=== PATIENT | female | born 1935 | race Caucasian/White ===

== ENCOUNTER 2019-12-27 05:07 | Emergency (ER) | payer MEDICARE, SELFPAY ==
--- NOTE | ~2019-12-27 | XR_ITS ---
EXAMINATION: XR chest 2V DATE: 12/27/2019 06:13 INDICATION: Chest tightness TECHNIQUE: AP and lateral views of the chest are obtained. COMPARISON: 02/09/2018 FINDINGS: The lungs are free of acute opacities. There is no pleural effusion or pneumothorax. The ca rdiomediastinal silhouette is normal. There is moderate thoracic spondylosis. There is chronic mild e levation of the anterior leaflet of the right hemidiaphragm. There are surgical changes of left maste ctomy and left axillary lymph node dissection. Multiple healed left-sided rib fractures are noted. IMPRESSION: 1. No acute cardiopulmonary abnormality. Reviewed, dictated and finalized at location A.
[2019-12-27 05:06] VITALS: BP 175/77; PULSE 78; RESP 21; TEMP 36.8; O2SAT 95
--- NOTE | 2019-12-27 05:23 | ECG_ITS ---
Measurements Intervals [place] Rate: 78 P: 107 OH: 150 QRS: 40 QRSD: 105 T: 0 QT: 361 QTc: 413 Interpretive Statements SINUS RHYTHM BORDERLINE ST-T WAVE ABNORMALITY- INFERIOR LEADS BASELINE ARTIFACT- I, II, III, AVR, AVL, AVF BORDERLINE ECG Electronically Signed On 12-27-2019 6:57:59 CDT by Cipriano Chowdhury D.O.
--- NOTE | 2019-12-27 05:24 | ED.CHESTPAIN ---
HPI - Chest Pain General Chief Complaint: Chest Pain <Kimberly Ann MD - Last Filed: 12/27/19 20:51> Stated Complaint: chest tightness <Kimberly Ann MD - Last Filed: 12/27/19 20:51> Time Seen by Provider: 12/27/19 10:37 <Kimberly Ann MD - Last Filed: 12/27/19 20:51> Source: patient <Kimberly Ann MD - Last Filed: 12/27/19 20:51> Mode of arrival: EMS <Kimberly Ann MD - Last Filed: 12/27/19 20:51> Limitations: no limitations <Kimberly Ann MD - Last Filed: 12/27/19 20:51> History of Present Illness HPI narrative: This patient is an 84 year old female who presents for evaluation of an 84 year old female who presents for evaluation of chest tightness. She states she woke up at 4 am with upper chest tightness. She states she got up to check her vitals and she noticed her blood pressure and heart rate were elevated. This tightness lasted 15 minutes and she states it has now resolved. She denies nausea, vomiting, dizziness , sob or diaphoresis. She reports distant history of afib and she is on propanolol. She reports she was told to take aspirin for her paroxysmal afib. On EMS EKG patient was found to be in afib with RVR. PAtient has no complaints now and she is in sinus rhythm <Kimberly Ann MD - Last Filed: 12/27/19 20:51> Onset (ago): minute(s) <Kimberly Ann MD - Last Filed: 12/27/19 20:51> Timing of current episode: now resolved <Kimberly Ann MD - Last Filed: 12/27/19 20:51> Prior episodes: Yes <Kimberly Ann MD - Last Filed: 12/27/19 20:51> Onset: during rest <Kimberly Ann MD - Last Filed: 12/27/19 20:51> Pain radiation: none <Kimberly Ann MD - Last Filed: 12/27/19 20:51> Quality: tightness <Kimberly Ann MD - Last Filed: 12/27/19 20:51> Relieving factors: nothing <Kimberly Ann MD - Last Filed: 12/27/19 20:51> Exacerbating factors: nothing <Kimberly Ann MD - Last Filed: 12/27/19 20:51> Risk Factors Coronary artery disease risk factors: hypertension <Kimberly Ann MD - Last Filed: 12/27/19 20:51> Related Data Home Medications: Home Medications Medication Instructions Recorded Confirmed letrozole 2.5 mg PO DAILY 12/27/19 losartan 50 mg PO DAILY 12/27/19 mometasone [Asmanex Twisthaler] INHALATION BID 12/27/19 propranolol [InnoPran XL] 80 mg PO DAILY 12/27/19 simvastatin 20 mg PO DAILY 12/27/19 <Kimberly Ann MD - Last Filed: 12/27/19 20:51> Allergies/Adverse Reactions: Allergies Allergy/AdvReac Type Severity Reaction Status Date / Time levofloxacin Allergy Intermediate Swelling Verified 12/27/19 05:24 Cephalosporins Allergy Mild Swelling Verified 12/27/19 05:24 Quinolones Allergy Mild Hives Verified 12/27/19 05:24 PCN Allergy Mild Hives Uncoded 12/27/19 05:24 <Kimberly Ann MD - Last Filed: 12/27/19 20:51> Review of Systems Review of Systems: All systems reviewed & are unremarkable except as noted in HPI and below <Kimberly Ann MD - Last Filed: 12/27/19 20:51> Constitutional: Constitutional: Denies chills and Denies fever(s) <Kimberly Ann MD - Last Filed: 12/27/19 20:51> Cardiovascular: Cardiovascular: Reports chest pain, Reports rapid heart rate and Denies radiating jaw, neck or arm pain <Kimberly Ann MD - Last Filed: 12/27/19 20:51> Respiratory: Respiratory: Denies cough and Denies dyspnea <Kimberly Ann MD - Last Filed: 12/27/19 20:51> Gastrointestinal: Gastrointestinal: Denies abdominal pain, Denies nausea and Denies vomiting <Kimberly Ann MD - Last Filed: 12/27/19 20:51> Musculoskeletal: Musculoskeletal: Reports arthralgias <Kimberly Ann MD - Last Filed: 12/27/19 20:51> [facility] Past Medical History Medical History: Medical History (Updated 12/27/19 @ 07:15 by Kimberly Ann MD) Asthma Back pain Breast CA Carpal tunnel syndrome [place] (hard of
[2019-12-27 05:41] LABS: Basophils Absolute Auto 0.2 K/mm3 (0.0-0.1); Basophils Percent Auto 1.5 % (0.2-1.2); Eosinophils Absolute Auto 0.4 K/mm3 (0-0.3); Eosinophils Percent Auto 3.6 % (0-4.4); Hematocrit 39.7 % (37.0-47.0); Hemoglobin 12.8 g/dL (12.0-15.0); Immature Granulocyte Absolute 0.05 K/mm3 (0.00-0.031); Immature Granulocyte Percent A 0.5 % (0-0.5); Lymphocytes Absolute Auto 2.86 K/mm3 (0.9-3.2); Lymphocytes Percent Auto 29.3 % (18.3-44.2); Mean Corpuscular HGB Conc 32.2 g/dl (32-36); Mean Corpuscular Hemoglobin 26.2 pg (26-34); Mean Corpuscular Volume 81.2 fl (80-100); Mean Platelet Volume 11.2 fl (7.4-10.4); Monocytes Percent Auto 10.5 % (2.6-8.5); Neutrophils Absolute Auto 5.3 K/mm3 (1.3-6.7); Neutrophils Percent Auto 54.6 % (45.5-73.1); Platelet Count Result 192 k/mm3 (150-375); Red Blood Count 4.89 M/mm3 (4.2-5.4); Red Cell Distribution Width 15.7 % (11.5-14.5); White Blood Count 9.8 K/mm3 (4.5-10.0)
[2019-12-27] MEDS: ASPIRIN 81 MG CHEWABLE TABLET 324 MG PO (05:49)
[2019-12-27 05:51] LABS: Anion Gap 7 mmol/L (8-16); Blood Urea Nitrogen 22 mg/dL (7-17); Calcium 9.4 mg/dL (8.4-10.2); Carbon Dioxide 25 mmol/L (22-30); Chloride 107 mmol/L (98-107); Estimated CRCL calculation 36 ml/min; Estimated Glomerular Filt Rate 53; Glucose 107 mg/dL (65-105); Potassium 3.9 mmol/L (3.4-5.0); Prothrombin Time 12.9 Seconds (11.1-14.7); Sodium 139 mmol/L (137-145)
[2019-12-27 05:52] LABS: Partial Thromboplastin Time 30.7 SECONDS (22.3-36.8)
[2019-12-27 06:00] VITALS: BP 139/101; PULSE 59; RESP 18; O2SAT 97
[2019-12-27 06:05] LABS: Troponin I < 0.012 ng/mL (0.000-0.034)
[2019-12-27 08:17] VITALS: BP 123/75; PULSE 61; RESP 18; O2SAT 96
[2019-12-27 10:24] VITALS: BP 121/61; PULSE 62; RESP 15; O2SAT 95
== END 2019-12-27 10:48 | disposition home or self-care (01) ==
PROVIDERS: General Practice; Emergency Provider Emergency Medicine; PCP Family Medicine
DX: I48.0 Paroxysmal atrial fibrillation (principal); J45.909 Unspecified asthma, uncomplicated; Z85.3 Personal history of malignant neoplasm of breast; E78.5 Hyperlipidemia, unspecified; I10 Essential (primary) hypertension
CPT/HCPCS: 36415; 71046; 80048; 84484; 85025; 85610; 85730; 93005; 99284; A9270

== ENCOUNTER 2021-02-25 10:24 | Emergency (ER) | payer MEDICARE, SELFPAY ==
--- NOTE | ~2021-02-25 | XR_ITS ---
EXAMINATION: XR lumbar spine 2-3V EXAM DATE: 02/25/2021 11:40 INDICATION: Lumbar pain. TECHNIQUE: Frontal and lateral projections of the lumbosacral spine. There is no prior study for co mparison. FINDINGS: There is 6 mm is anterolisthesis L4 on L5 with moderate to severe loss of the disc height. No spondylolysis suspected. There is moderate to severe lower lumbar facet arthropathy. The vertebra l bodies are otherwise aligned. There is moderate disc disease L2-3, L3-4 and L5-S1. There are no acu te fractures identified. There is mild to moderate lumbar levoscoliosis. Moderate abdominal aortic ar teriosclerosis. Sacrum, sacroiliac joints, sacral arcuate lines are intact. IMPRESSION: 1. No acute lumbar findings. 2. Moderate to severe spondylosis. 3. L4-5 grade 1 anterolisthesis. Reviewed, dictated and finalized at location A.
--- NOTE | ~2021-02-25 | XR_ITS ---
EXAMINATION: XR thoracic spine 3V EXAM DATE: 02/25/2021 11:40 INDICATION: Right-sided back pain. TECHNIQUE: Frontal and lateral projections of the thoracic spine as well as lateral swimmers projecti on of the upper thoracic spine for interpretation. Correlation is made to chest x-ray 12/27/2019. FINDINGS: There is moderate anterior wedging 2 midthoracic level, mild at the level above. These ar e most likely chronic. There are no acute fractures identified. The vertebral bodies are aligned in t he AP dimension. There is mild diffuse mid and lower thoracic disc disease. There is aortic arteriosc lerosis. Mild upper thoracic levoscoliosis, lower thoracic dextroscoliosis. Chondral cartilage calcif ication. Left axillary surgical clips. Old left rib fractures. IMPRESSION: 1. Chronic appearing mid lumbar compression fractures causing some kyphosis. 2. Mild thoracic disc disease and mild scoliosis. Reviewed, dictated and finalized at location A.
[2021-02-25 10:26] VITALS: BP 144/93; PULSE 95; RESP 14; TEMP 36.4; O2SAT 99
[2021-02-25] MEDS: IBUPROFEN 600 MG TABLET PO (11:20)
--- NOTE | 2021-02-25 11:32 | ED.BACK ---
HPI - Back Pain/Injury General Chief Complaint: Back Pain/Injury Stated Complaint: back pain Time Seen by Provider: 02/25/21 10:58 History of Present Illness HPI Narrative: Patient is an 85-year-old female who presents ER with back pain. Began yesterday around noon. Worse with movement and twisting. No known trauma. She did not fall. No lower extremity numbness or tingling. No difficulty with urination/defecation. No anesthesia over the privates. Patient reports she had improvement of pain this morning after taking some extra strength Tylenol. No nausea/vomiting/shortness of breath. No productive cough. No urinary symptoms. Related Data Home Medications Medication Instructions Recorded Confirmed letrozole 2.5 mg PO DAILY 12/27/19 losartan 50 mg PO DAILY 12/27/19 mometasone [Asmanex Twisthaler] INHALATION BID 12/27/19 propranolol [InnoPran XL] 80 mg PO DAILY 12/27/19 simvastatin 20 mg PO DAILY 12/27/19 Allergies Allergy/AdvReac Type Severity Reaction Status Date / Time levofloxacin Allergy Intermediate Swelling Verified 02/25/21 10:55 Cephalosporins Allergy Mild Swelling Verified 02/25/21 10:55 Quinolones Allergy Mild Hives Verified 02/25/21 10:55 PCN Allergy Mild Hives Uncoded 02/25/21 10:55 Review of Systems Review of Systems: All systems reviewed & are unremarkable except as noted in HPI and below Constitutional: Constitutional: Denies chills, Denies fever(s) and Denies weakness Cardiovascular: Cardiovascular: Denies chest pain and Denies radiating jaw, neck or arm pain Respiratory: Respiratory: Denies cough and Denies dyspnea Genitourinary: Genitourinary: Denies nocturia and Denies dysuria Musculoskeletal: Musculoskeletal: Reports back pain, Denies arthralgias and Denies muscle cramps Neurologic: Denies focal weakness and Denies numbness PMFSH Past Medical History Medical History (Updated 02/25/21 @ 12:53 by Zen Lucas MD) Asthma Back pain Breast CA Carpal tunnel syndrome [place] (hard of hearing) Hyperlipidemia Hypertension Tachycardia Surgical History Surgical History (Updated 02/28/19 @ 19:55 by Ruth Eid) History of knee surgery lt Hx of lumpectomy Social History Social History (Updated 02/28/19 @ 19:55 by Ruth Kiran Smoking status: Never smoker Gender identity (if verbalized by the patient): Female Exam Narrative: GENERAL: Well-appearing, well-nourished, and in no acute distress. HEAD: Normocephalic, atraumatic. CHEST: Clear to auscultation. No respiratory distress. HEART: Regular rate and rhythm. Normal peripheral pulses. Back: Mild discomfort near L1/T12 with additional tenderness over the chest wall posteriorly on the right side. EXTREMITIES: Normal range of motion. No edema. SKIN: Warm, dry, no rash. NEURO: Alert and oriented x3. Ambulates without issue. PSYCH: Normal mood and affect. Course Course Emergency Course: Patient informed results. Pain improving. Discharge home. Vital Signs Vital signs: Vital Signs Temperature 97.6 F 02/25/21 10:26 Pulse Rate 95 02/25/21 10:26 Respiratory Rate 14 02/25/21 10:26 Blood Pressure 144/93 H 02/25/21 10:26 Pulse Oximetry 99 02/25/21 10:26 Temperature 97.6 F 02/25/21 10:26 Pulse Rate 95 02/25/21 10:26 Respiratory Rate 14 02/25/21 10:26 Blood Pressure 144/93 H 02/25/21 10:26 Pulse Oximetry 99 02/25/21 10:26 MDM - Back Pain/Injury Imaging Data Radiologist's impression: ITS Impressions Lumbar Spine X-Ray 02/25/21 11:53 IMPRESSION: 1. No acute lumbar findings. 2. Moderate to severe spondylosis. 3. L4-5 grade 1 anterolisthesis. Thoracic Spine X-Ray 02/25/21 11:58 IMPRESSION: 1. Chronic appearing mid lumbar compression fractures causing some kyphosis. 2. Mild thoracic disc disease and mild scoliosis. Discharge Plan Discharge Clinical Impression: Strain of lumbar region Patient Disposit
== END 2021-02-25 13:17 | disposition home or self-care (01) ==
PROVIDERS: Emergency Provider Emergency Medicine; PCP Family Medicine
DX: S39.012A Strain of muscle, fascia and tendon of lower back, initial encounter (principal); J45.909 Unspecified asthma, uncomplicated; Z85.3 Personal history of malignant neoplasm of breast; E78.5 Hyperlipidemia, unspecified; I10 Essential (primary) hypertension; M47.816 Spondylosis without myelopathy or radiculopathy, lumbar region; M51.34 Other intervertebral disc degeneration, thoracic region; X58.XXXA Exposure to other specified factors, initial encounter
CPT/HCPCS: 72072; 72100; 99283; A9270

== ENCOUNTER 2021-03-02 22:27 | Inpatient (IN) | payer MEDICARE, SELFPAY ==
--- NOTE | ~2021-03-02 | CT_ITS ---
EXAMINATION: CT thoracic lumbar wo con DATE: 03/03/2021 01:15 INDICATION: Back pain. TECHNIQUE: Computed tomography (CT) of the thoracic and lumbar spine was performed without intravenou s contrast. Automated exposure control and iterative reconstruction technique were employed. The dose -length product was 1355.72 mGy-cm. COMPARISON: None FINDINGS: CT THORACIC SPINE: Calcified bilateral hilar lymph nodes are consistent with old granulomatous diseas e. There are left rib fractures. There is kyphosis of thoracic spine. There is 10 degrees levoscolios is of upper thoracic spine and 10 degrees dextroscoliosis of lower thoracic spine. There is mild children's lunchroom supervisor heron height loss of multiple vertebral bodies. There is a chronic burst fracture of T5 with 3/5 loss o f height and retropulsion of bone 2 mm into central spinal canal. There is a burst fracture of T11 ve rtebral body without significant height loss with retropulsion of bone 2 mm into central spinal canal . There is a Schmorl's node of the superior endplate. There is mildly decreased disc height at multip le levels. There is moderately decreased disc height at T5-T6, T7-T8, and T9-T10. There is multilevel mild facet joint osteoarthritis. There is mild neural foraminal stenosis at multiple levels bilatera lly. There is mild central canal stenosis at T5-T6 and at T11. CT LUMBAR SPINE: There is 9 degrees levocurvature of thoracolumbar spine. There is 6 mm anterolisthes is of L4 and L5 and L5 on S1. There is mild chronic anterior wedging of L1 vertebral body. There is s everely decreased disc height from L2-L3 through L5-S1 with endplate remodeling. The following disc l evels are specifically discussed: L1-L2: The disc does not extend beyond the endplate margin. There is mild bilateral facet joint osteo arthritis. There is no neural foraminal stenosis. There is no central canal stenosis. L2-L3: The disc is bulging. There is severe right and mild left facet joint osteoarthritis. There is moderate right and mild left neural foraminal stenosis. There is mild central canal stenosis. L3-L4: The disc is bulging. There is severe bilateral facet joint osteoarthritis. There is moderate b ilateral neural foraminal stenosis. There is mild central canal stenosis. L4-L5: The disc is bulging. There is severe bilateral facet joint osteoarthritis. There is mild bilat eral neural foraminal stenosis. There is moderate central canal stenosis. L5-S1: The disc is bulging. There is severe bilateral facet joint osteoarthritis. There is mild bilat eral neural foraminal stenosis. There is mild central canal stenosis. IMPRESSION: 1. Acute T11 burst fracture. 2. Moderate thoracic spondylosis and severe lumbar spondylosis. 3. Scoliosis. Reviewed, dictated and finalized at location A. HOUSE RECORD CLERK
--- NOTE | ~2021-03-02 | MR_ITS ---
EXAMINATION: MR lumbar spine wo con DATE: 03/03/2021 12:45 INDICATION: Back pain. TECHNIQUE: Magnetic resonance imaging (MRI) of the lumbar spine was performed without intravenous con trast. Sequences included sagittal T2-weighted FSE, sagittal T2-weighted FS FSE, sagittal T1-weighted FSE, and axial T2-weighted FSE. COMPARISON: CT 03/03/2021 FINDINGS: There is 8 degrees levocurvature of lumbar spine. There is 5 mm anterolisthesis of L4 on L5 and 4 mm anterolisthesis of L5 on S1. There is mild chronic anterior wedging of L1 vertebral body. T here is severely decreased disc height from L2-L3 through L5-S1 with endplate remodeling. There is li gamentum flavum hypertrophy at the disc levels from L1-L2 through L4-L5. The distal spinal cord signa l intensity is normal. The conus medullaris is at L1. There is peripheral displacement of the cauda e quina at L5 and S1, consistent with arachnoiditis. The bladder is distended. The following disc level s are specifically discussed: L1-L2: The disc does not extend beyond the endplate margin. There is mild bilateral facet joint osteo arthritis. There is no neural foraminal stenosis. There is no central canal stenosis. L2-L3: The disc is bulging and has an annular fissure. There is severe right and mild left facet join t osteoarthritis. There is moderate right and mild left neural foraminal stenosis. There is mild cent ral canal stenosis. L3-L4: The disc is bulging and has an annular fissure. There is severe bilateral facet joint osteoart hritis. There is mild bilateral neural foraminal stenosis. There is mild central canal stenosis. L4-L5: The disc is bulging and has an annular fissure. There is severe bilateral facet joint osteoart hritis. There is mild bilateral neural foraminal stenosis. There is mild central canal stenosis. L5-S1: The disc is bulging. There is severe bilateral facet joint osteoarthritis. There is mild bilat eral neural foraminal stenosis. There is mild central canal stenosis. IMPRESSION: 1. Severe lumbar spondylosis. Reviewed, dictated and finalized at location A. ERCIAL ENGINEER
--- NOTE | ~2021-03-02 | CT_ITS ---
EXAMINATION: CT brain wo con DATE: 03/04/2021 00:28 INDICATION: Change of level of consciousness. TECHNIQUE: Computed tomography (CT) of the head was performed without intravenous contrast. The mA wa s adjusted according to patient size. Iterative reconstruction technique was employed. The dose-lengt h product was 681.00 mGy-cm. COMPARISON: None FINDINGS: There are scattered areas of low attenuation in the cerebral white matter. There is no intr acranial hemorrhage, acute infarction, or abnormal intracranial mass lesion. The ventricles are avila l in size. There is mild mucosal thickening in the ethmoid sinuses. There are likely changes of left ocular lens replacement surgery. The mastoid air cells are normal. IMPRESSION: 1. Moderate nonspecific cerebral white matter disease, which likely represents chronic small vessel i schemic disease. Reviewed, dictated and finalized at location A. DEALERSHIP PORTER IMPRESSION: 1. Moderate nonspecific cerebral white matter disease, which likely represents chronic small vessel ischemic disease.
--- NOTE | ~2021-03-02 | XR_ITS ---
EXAMINATION: XR chest 1V portable EXAM DATE: 03/03/2021 20:28 INDICATION: change in LOC; low o2. TECHNIQUE: Portable AP frontal chest x-ray was obtained. Comparison is made to prior examination from earlier same date. FINDINGS: The cardiomediastinal silhouette is prominent but magnified on this AP technique. Low lung volume with some pulmonary vascular crowding and bibasilar linear atelectasis. No sizable pleural eff usion. No pneumothorax. There are bony degenerative changes. IMPRESSION: Low lung volume, development of bibasilar linear opacity most consistent with atelectasis . Pneumonia not excludable. Reviewed, dictated and finalized at location A. J2EE ARCHITECT IMPRESSION: Low lung volume, development of bibasilar linear opacity most consi stent with atelectasis. Pneumonia not excludable.
--- NOTE | ~2021-03-02 | XR_ITS ---
EXAMINATION: XR chest 1V portable EXAM DATE: 03/13/2021 10:00 INDICATION: SOB, HX: ASTHMA, HTN. TECHNIQUE: Portable AP frontal chest x-ray was obtained. Comparison is made to prior examination from 03/05/2021. FINDINGS: Cardiomegaly. No confluent consolidation, pneumothorax or pleural effusion suspected. The b ones are osteopenic. There are bony degenerative changes. Axillary surgical clips. IMPRESSION: Cardiomegaly. No focal airspace disease. Reviewed, dictated and finalized at location A. CACY DIRECTOR
--- NOTE | ~2021-03-02 | XR_ITS ---
EXAMINATION: XR chest 1V portable INDICATION: Altered mental status TECHNIQUE: Portable AP chest at 0908 hours COMPARISON: 03/03/2021 FINDINGS: Bibasilar atelectasis persists with slight improvement in the right lung base. There is no pleural effusion or pneumothorax. The cardiomediastinal silhouette is normal. There are surgical clip s in the left axilla. Healed left rib fractures are noted. IMPRESSION: 1. Bibasilar atelectasis with improvement on the right. Reviewed, dictated and finalized at location B. NG LAYER
--- NOTE | ~2021-03-02 | XR_ITS ---
XR chest 1V portable 03/05/2021 09:11 Indication: Fever. Transient alteration of awareness. Procedure: AP portable chest Comparison: 03/04/2021 Findings: Cardiomegaly. Bibasilar airspace disease. Shallow inspiration. No significant pleural effus ion or pneumothorax. There are surgical clips in the left axilla. Impression: 1: Bibasilar airspace disease which may represent pneumonia and/or atelectasis. Reviewed, dictated and finalized at location A. FINANCE SALES REP Impression: 1: Bibasilar airspace disease which may represent pneumonia and/or atelectasis.
--- NOTE | ~2021-03-02 | MR_ITS ---
EXAMINATION: MR thoracic spine wo con DATE: 03/03/2021 12:45 INDICATION: Back pain. TECHNIQUE: Magnetic resonance imaging (MRI) of the thoracic spine was performed without intravenous c ontrast. Sagittal localizer T1-weighted FSE of the cervical spine was obtained. Thoracic spine sequen lachelle included sagittal T2-weighted FSE, sagittal T1-weighted FSE, sagittal T2-weighted FS FSE, and axi al T2-weighted FSE. COMPARISON: CT 03/03/2021 FINDINGS: There is kyphosis of thoracic spine. There is 10 degrees levoscoliosis of upper thoracic sp ine and 10 degrees dextroscoliosis of lower thoracic spine. There is mild chronic anterior wedging of multiple vertebral bodies. There is a chronic burst fracture of T5 with 3/5 loss of height and retro pulsion of bone 2 mm into central spinal canal. There is an acute burst fracture of T11 with less deena n 1/5 loss of height and retropulsion of bone 2 mm into central spinal canal. There is mildly decreas ed disc height at multiple levels. There is moderately decreased disc height at T7-T8 and T9-T10. The discs are bulging at T5-T6, T6-T7, T7-T8, T9-T10, T10-T11 with mild central canal stenosis. There is multilevel mild facet joint osteoarthritis. There is mild neural foraminal stenosis bilaterally at a few levels. IMPRESSION: 1. Acute T11 burst fracture. 2. Moderate thoracic spondylosis. 3. Scoliosis and kyphosis. Reviewed, dictated and finalized at location A. [employer] PROFESSIONALS
--- NOTE | ~2021-03-02 | CT_ITS ---
EXAMINATION: CT abdomen pelvis w con DATE: 03/11/2021 11:05 INDICATION: Abdominal pain. TECHNIQUE: Computed tomography (CT) of the abdomen and pelvis was performed with 100 mL Omnipaque 350 intravenous contrast. Automated exposure control and iterative reconstruction technique were employe d. The dose-length product was 960.65 mGy-cm. COMPARISON: CT abdomen and pelvis 03/04/2021 FINDINGS: The visualized portions of the lung bases demonstrate mild chronic interstitial lung diseas e. No pleural effusion. There is left atrial enlargement of the heart. No pericardial effusion. The l iver demonstrates hypertrophy of left lateral segment and surface nodularity, consistent with cirrhos is. The gallbladder, spleen, pancreas, and adrenal glands are normal. There is cortical thinning of t he kidneys. The bladder is distended. There is a Lopez catheter in expected position. There is a left inguinal hernia containing fat. There is diverticulosis of the colon without evidence of diverticuli tis. There are no dilated loops of bowel. The appendix is normal. There are no pathologically enlarge d lymph nodes. There is no free intraperitoneal fluid. There is severe lumbar spondylosis. Again seen is a burst fracture of T11 vertebral body with retropulsion of bone 2 mm into central spinal canal. IMPRESSION: 1. Cirrhosis of the liver. 2. Distended bladder with Lopez catheter in expected position. 3. Left inguinal hernia containing fat. 4. Stable subacute T11 burst fracture. 5. Mild chronic interstitial lung disease. Reviewed, dictated and finalized at location A. OR CONSULTING MANAGER
--- NOTE | ~2021-03-02 | MR_ITS ---
EXAMINATION: MR brain/brain stem wo con DATE: 03/05/2021 13:36 INDICATION: Altered mental status. TECHNIQUE: Magnetic resonance imaging (MRI) of the brain and brainstem was performed without intraven ous contrast. Sequences included sagittal and axial T1-weighted FSE, axial diffusion-weighted FS EPI, axial T2*-weighted GRE, axial T2-weighted FLAIR Propeller, and axial T2-weighted Propeller. Apparent diffusion coefficient (ADC) maps were created. COMPARISON: Head CT 03/04/2021 FINDINGS: Motion artifact is noted. There are scattered areas of nonspecific increased T2-weighted si gnal intensity in the cerebral white matter and candice. There is no intracranial hemorrhage, acute infa rction, or abnormal intracranial mass lesion. The ventricles are normal in size. The mastoid air cell s are normal. There is mild mucosal thickening in the ethmoid sinuses. There are likely changes of le ft ocular lens replacement surgery. IMPRESSION: 1. Moderate nonspecific cerebral white matter disease and pontine disease, which likely represents ch ronic small vessel ischemic disease. Reviewed, dictated and finalized at location A. RAL INTERNAL MEDICINE DOCTOR IMPRESSION: 1. Moderate nonspecific cerebral white matter disease and pontine disease, whic h likely represents chronic small vessel ischemic disease.
--- NOTE | ~2021-03-02 | CT_ITS ---
EXAMINATION: CT abdomen pelvis wo con DATE: 03/04/2021 11:26 INDICATION: Altered mental status and abdominal pain TECHNIQUE: Computed tomography (CT) of the abdomen and pelvis was performed without intravenous contr ast. The dose-length product (DLP) was 1129.34 mGy-cm. Automated exposure control and iterative recon struction technique were employed. COMPARISON: 03/03/2021 FINDINGS: Minimal dependent atelectasis is present in the lung bases. Cardiomegaly is noted. Small pl eural effusions are present. There are changes of left mastectomy. Within the limitations of noncontr ast examination, the liver, spleen, pancreas, gallbladder, and adrenal glands are normal. The kidneys are unremarkable. There is calcified atherosclerosis of the aorta and many of the other arteries. No pathologically enlarged abdominal or pelvic lymph nodes are identified. There is no free intraperito josesito gas or evidence of bowel obstruction. The bladder is decompressed by Lopez catheter. The appendi x is normal. There is severe lumbar spondylosis. A T11 burst fracture is again noted. IMPRESSION: 1. No CT correlate for the patient's symptoms. 2. Small pleural effusions. Reviewed, dictated and finalized at location B. COLLECTOR
--- NOTE | ~2021-03-02 | XR_ITS ---
EXAMINATION: XR chest 1V DATE: 03/03/2021 01:23 INDICATION: Palpitations. TECHNIQUE: A single frontal view of the chest was obtained. COMPARISON: Chest 2 views 12/27/2019, thoracic spine CT 03/03/2021 FINDINGS: There is eventration of anterior right hemidiaphragm. There is mild scarring at right lung apex. No pneumonia, pleural effusion, or pneumothorax. Cardiomegaly is noted. Calcified hilar lymph n odes are consistent with old granulomatous disease. There are old healed left rib fractures. There ar e surgical clips in left axilla. IMPRESSION: 1. Mild scarring at right lung apex. 2. Cardiomegaly. Reviewed, dictated and finalized at location A. R SERVICES MANAGER
[2021-03-02 22:50] VITALS: BP 145/118; PULSE 92; RESP 18; TEMP 35.8; O2SAT 98
[2021-03-03] VITALS (21 sets, daily range): BP systolic 96–159; BP diastolic 50–129; PULSE 79–146; RESP 12–20; TEMP 36.2–36.6; O2SAT 91–99; BMI 31.4
--- NOTE | 2021-03-03 00:53 | ECG_ITS ---
Measurements Intervals [place] Rate: 147 P: [place]: 0 QRS: 89 QRSD: 93 T: -11 QT: 292 QTc: 457 Interpretive Statements ATRIAL FIBRILLATION WITH RAPID VENTRICULAR RESPONSE NONSPECIFIC ST & T-WAVE ABNORMALITY- INF/LAT LEADS BASELINE ARTIFACT- I, II, III, AVR, AVL, AVF, V1, V3-V6 ABNORMAL ECG Electronically Signed On 03-03-2021 5:25:54 CABLE COVERER by Cipriano Chowdhury D.O.
[2021-03-03] MEDS: HYDROmorphone HCL INJ (*CRX) 1 MG/ML SYR IV PUSH (01:28)
[2021-03-03] MEDS: dilTIAZem HCl INJ 25 MG/5 ML VIAL 20 MG IV PUSH (01:28)
[2021-03-03] MEDS: ONDANSETRON INJ 4 MG/2 ML VIAL IV PUSH (01:28)
[2021-03-03 01:33] LABS: Basophils Absolute Auto 0.1 K/mm3 (0.0-0.1); Basophils Percent Auto 0.8 % (0.2-1.2); Eosinophils Absolute Auto 0.2 K/mm3 (0-0.3); Eosinophils Percent Auto 1.6 % (0-4.4); Hemoglobin 16.8 g/dL (12.0-15.0); Immature Granulocyte Absolute 0.03 K/mm3 (0.00-0.031); Immature Granulocyte Percent A 0.3 % (0-0.5); Lymphocytes Absolute Auto 2.08 K/mm3 (0.9-3.2); Lymphocytes Percent Auto 17.3 % (18.3-44.2); Mean Corpuscular HGB Conc 33.6 g/dl (32-36); Mean Corpuscular Hemoglobin 29.8 pg (26-34); Mean Corpuscular Volume 88.7 fl (80-100); Mean Platelet Volume 10.1 fl (7.4-10.4); Monocytes Absolute Auto 0.9 K/mm3 (0.1-0.6); Monocytes Percent Auto 7.6 % (2.6-8.5); Neutrophils Absolute Auto 8.7 K/mm3 (1.3-6.7); Neutrophils Percent Auto 72.4 % (45.5-73.1); Platelet Count Result 274 k/mm3 (150-375); Red Blood Count 5.64 M/mm3 (4.2-5.4)
[2021-03-03 01:43] LABS: INR 1.4; Prothrombin Time 17.1 Seconds (11.1-14.7)
[2021-03-03 01:44] LABS: Partial Thromboplastin Time 43.5 SECONDS (22.3-36.8)
[2021-03-03 01:45] LABS: Alanine Aminotransferase 16 U/L (4-35); Albumin Level 4.3 g/dL (3.5-5.1); Alkaline Phosphatase 81 U/L (38-126); Anion Gap 11 mmol/L (8-16); Aspartate Amino Transferase 30 U/L (14-36); Bilirubin,Total 0.6 mg/dL (0.2-1.3); Blood Urea Nitrogen 14 mg/dL (7-17); Calcium 9.8 mg/dL (8.4-10.2); Carbon Dioxide 25 mmol/L (22-30); Chloride 101 mmol/L (98-107); Estimated CRCL calculation 31 ml/min; Estimated Glomerular Filt Rate 47; Glucose 106 mg/dL (65-110); Magnesium 2.1 mg/dL (1.6-2.3); Potassium 4.4 mmol/L (3.4-5.0); Sodium 137 mmol/L (137-145)
[2021-03-03 01:56] LABS: NT Pro B Type Natriuretic Pept 3030 pg/mL (5-100); Troponin I 0.014 ng/mL (0.000-0.034)
--- NOTE | 2021-03-03 02:55 | ED.GENADULT ---
HPI - General Adult General Chief complaint: Back Pain/Injury Stated complaint: back pain Time Seen by Provider: 03/03/21 00:49 History of Present Illness HPI narrative: Patient 85-year-old female presents the emergency department with chief complaint of back pain. Patient has been seen and multiple emergency departments over the last several days after she has been having pain in her thoracic and lumbar spine. Patient denies focal neurological deficit reports she has had a little bit of tingling but has had no bowel or bladder dysfunction. Patient reports that tonight the pain got worse even though she has been taking oral pain medications at home. Patient states that she does have history of atrial fibrillation and denies chest pain but when she arrived to the emergency department the patient was tachycardic. Related Data Home Medications Medication Instructions Recorded Confirmed letrozole 2.5 mg PO DAILY 12/27/19 losartan 50 mg PO DAILY 12/27/19 mometasone [Asmanex Twisthaler] INHALATION BID 12/27/19 propranolol [InnoPran XL] 80 mg PO DAILY 12/27/19 simvastatin 20 mg PO DAILY 12/27/19 Allergies Allergy/AdvReac Type Severity Reaction Status Date / Time levofloxacin Allergy Intermediate Swelling Verified 03/02/21 22:57 Cephalosporins Allergy Mild Swelling Verified 03/02/21 22:57 Quinolones Allergy Mild Hives Verified 03/02/21 22:57 PCN Allergy Mild Hives Uncoded 03/02/21 22:57 Review of Systems Review of Systems: A 10 system review of systems was completed on the patient and is negative except for what is stated in the HPI. Nursing and ancillary documentation was reviewed. PMFSH Past Medical History Medical History Asthma Back pain Breast CA Carpal tunnel syndrome [place] (hard of hearing) Hyperlipidemia Hypertension Tachycardia Surgical History Surgical History History of knee surgery lt Hx of lumpectomy Social History Social History Smoking status: Never smoker Gender identity (if verbalized by the patient): Female Exam Narrative: GENERAL: Well-appearing, well-nourished, and in no acute distress. HEAD: Normocephalic, atraumatic. EYES: PERRLA and EOMI. ENT: Nares clear, no rhinorrhea or epistaxis. Mucous membranes moist. NECK: Supple. CHEST: Clear to auscultation. No respiratory distress. HEART: Regular rate and rhythm. No murmur heard. Normal peripheral pulses. ABDOMEN: Soft, nontender, nondistended, normal active bowel sounds. EXTREMITIES: Normal range of motion. No edema. SKIN: Warm, dry, no rash. NEURO: No focal deficits. Alert and oriented x3. PSYCH: Normal mood and affect. Course Course Emergency Course: EKG showed atrial fibrillation with rapid ventricular response with a rate of 147. Patient was given a Cardizem bolus and started on a Cardizem drip currently her heart rate is down to 104. The patient had previous plain film x-rays of the thoracic and lumbar spine. Helical imaging was obtained at this time CT lumbar spine showed no evidence of fracture there is some degenerative changes present on the lumbar spine. CT thoracic spine showed a subtle lucency involving the anterior cortex of T11 vertebral body and only the sagittal reformatted images. The radiologist reported it was unable to exclude a fracture that is subtle and nondisplaced. They recommend MRI with STIR imaging. Vital Signs Vital signs: Vital Signs Temperature 35.8 C L 03/02/21 22:50 Pulse Rate 92 03/02/21 22:50 Respiratory Rate 18 03/02/21 22:50 Blood Pressure 145/118 H 03/02/21 22:50 Pulse Oximetry 98 03/02/21 22:50 Temperature 35.8 C L 03/02/21 22:50 Pulse Rate 110 H 03/03/21 02:53 Respiratory Rate 12 03/03/21 02:53 Blood Pressure 122/75 03/03/21 02:53 Pulse Oximetry 98 03/03/21 02:53
--- NOTE | 2021-03-03 03:21 | PC.NURSE ---
VORB received from EDP Dr. Rice to titrate diltiazem to 10ml/hr
--- NOTE | 2021-03-03 04:19 | PC.NURSE ---
This patient, Frank Barrera, was admitted to IMU Room 206-02 on 03/03/21 at 0410. Patient/family oriented to hospital policies and general routines including ID bracelet, bed and alarms, visiting hours, pain management, procedures, bathroom and other care routines, personal items, smoking policy, room service/diet, and visiting hours. Information on how to activate the Rapid Response Team has been discussed. Patient/Family are encouraged to report perceived risks to care and to ask questions if they do not understand what they are told or what they should do.
[2021-03-03 05:44] LABS: Troponin I 0.014 ng/mL (0.000-0.034)
[2021-03-03 08:06] LABS: Troponin I < 0.012 ng/mL (0.000-0.034)
[2021-03-03] MEDS: HYDROcodone/acetaminophen (*CRX) 10-325 MG TABLET 1 TAB PO ×2 (08:11→16:29)
[2021-03-03 08:15] LABS: CRP 2.9 mg/dL (<1.0); Hematocrit 48.3 % (37.0-47.0); Hemoglobin 15.8 g/dL (12.0-15.0); Mean Corpuscular HGB Conc 32.7 g/dl (32-36); Mean Corpuscular Hemoglobin 29.5 pg (26-34); Mean Corpuscular Volume 90.1 fl (80-100); Mean Platelet Volume 10.6 fl (7.4-10.4); Platelet Count Result 245 k/mm3 (150-375); Red Blood Count 5.36 M/mm3 (4.2-5.4); Red Cell Distribution Width 14.1 % (11.5-14.5); White Blood Count 11.9 K/mm3 (4.5-10.0)
--- NOTE | 2021-03-03 08:57 | PM.IMHP ---
H&P: HPI History of Present Illness Date/Time: 03/03/21 08:57 Chief Complaint: Back pain Narrative: Patient is a 85-year-old female with a past medical history of atrial fibrillation, back pain requiring injections, breast cancer, hyperlipidemia and hypertension who presented emergency room for back pain. Patient states that she has been to [facility] twice and [facility] due to this back pain. She is alert oriented x4 but often gets off track with history taking and sometimes is hard to pinpoint her answers. She said it started 3 days ago (although it is noted that she came in 6 days ago for this) for back pain in the middle of her back. She says that it hurts so bad that she can not even walk without severe pain. She has absolutely no pain at rest and 10/10 pain when she walks. She has not had any trauma, falls, and she has not done any new or different activity in the last week to facilitate this back pain. Although she goes back and forth, she says that she had right thigh numbness and tingling a couple times in the past but has not had any recently. She thinks the last time this happened was summer when she was cleaning her house. She was given baclofen and tried it once which did not really help her pain. She sees Dr. Kang in [place] and has had back injections before but cannot remember the last time she has seen him but she thinks it was before [facility]. Patient denies dysuria, hematuria, diarrhea, fever, chest pain, shortness of breath, nausea, vomiting or palpitations. She has a history of AFib and usually is able to feel her palpitations but she has not felt any palpitations recently. She does mention that she had a new symptom of urinary leakage which is abnormal for her. She also mentions she has a dry mouth and a decreased appetite. She is not vaccinated because she says every time she is signed up for the vaccine she feels sick and does not go. She has never had COVID. She does not need any help obtaining the COVID vaccine and says her family can help her get it. Review of Systems Review of Systems: All systems reviewed & are unremarkable except as noted in HPI and below [facility] Past Medical History Medical History (Updated 03/03/21 @ 09:08 by Zoe Vivas PA-C) Asthma Back pain Breast CA Carpal tunnel syndrome [place] (hard of hearing) Hyperlipidemia Hypertension Tachycardia Surgical History Surgical History (Updated 03/03/21 @ 09:05 by Zoe Vivas PA-C) History of cataract surgery History of knee surgery lt Hx of lumpectomy Family History Family History (Updated 03/03/21 @ 09:06 by Zoe Vivas PA-C) Mother Cerebrovascular accident Cancer Father Acute myocardial infarction Daughter , Cancer, patient preferred not to go into detail Cancer Social History Social History (Updated 03/03/21 @ 09:07 by Zoe Vivas PA-C) Social History: Patient does not drink, smoke or do drugs. She has never smoked before in her life. She is a homemaker. She would like to be a full code. In the event that she is unable to make decisions for herself, she would like her daughter, Aleta to make the decisions Smoking status: Never smoker Alcohol intake: never Substance use: never Gender identity (if verbalized by the patient): Female Spiritual care concerns: No Meds Home Medications and Allergies Home Medications Medication Instructions Recorded Confirmed Type apixaban [Eliquis] 5 mg PO BID #60 tablet 12/27/19 03/03/21 Rx losartan 50 mg PO DAILY 12/27/19 03/03/21 History mometasone [Asmanex Twisthaler] 1 inh INHALATION BID 12/27/19 03/03/21 History propranolol [InnoPran XL] 80 mg PO DAILY 12/27/19 03/03/21 History simvastatin 20 mg PO DAILY 12/27/19 03/03/21 History acetaminophen 500 mg PO Q6H PRN 03/03/21 03/03/21 History baclofen 10 mg PO TID 03/03/21 03/03/21 History exemestane 25 mg PO DAILY 03/03/21 03/03/21 History furos
[2021-03-03 09:43] LABS: Erythrocyte Sedimentation Rate 18 mm/hr (0-20)
[2021-03-03] MEDS: BACLOFEN 10 MG TABLET PO ×3 (10:14→16:30)
[2021-03-03] MEDS: SIMVASTATIN 20 MG TABLET PO (10:14)
[2021-03-03] MEDS: LOSARTAN POTASSIUM 50 MG TABLET PO (10:14)
[2021-03-03] MEDS: FUROSEMIDE 20 MG TABLET PO (10:14)
[2021-03-03] MEDS: APIXABAN 5 MG TABLET PO ×2 (10:14→16:30)
--- NOTE | 2021-03-03 12:52 | PCPTNOTE ---
Unable to perform PT evaluation this date due to awaiting ortho consult. Will attempt at a later date/time.
--- NOTE | 2021-03-03 13:15 | PCOTNOTE ---
Unable to perform OT evaluation this date due to awaiting ortho consult. Will attempt at a later date/time.
--- NOTE | 2021-03-03 16:09 | PC.NURSE ---
On 03/03/21, the student, Moses [facility], provided care and completed [facility] documentation on this patient. I have reviewed the student's documentation and agree with the findings.
[2021-03-03] MEDS: METOPROLOL TARTRATE 25 MG TABLET PO (19:55)
[2021-03-03 20:13] LABS: Glucose Point of Care 110 mg/dl (65-105)
--- NOTE | 2021-03-03 20:15 | ECG_ITS ---
Measurements Intervals [place] Rate: 122 P: VT: 0 QRS: 79 QRSD: 90 T: -7 QT: 315 QTc: 450 Interpretive Statements ATRIAL FIBRILLATION WITH RAPID VENTRICULAR RESPONSE BORDERLINE ST-T WAVE ABNORMALITY- INFERIOR LEADS BASELINE ARTIFACT- I, II, III, V6 ABNORMAL ECG Electronically Signed On 03-04-2021 8:51:01 WASTE COTTON CLEANER by Cipriano Chowdhury D.O.
[2021-03-03] MEDS: NALOXONE HCL 0.4 MG/ML VIAL 0.1 MG IV PUSH (20:23)
[2021-03-03 20:25] LABS: Alveolar/Arterial O2 Gradient 100.9 mmHg; Fractional Inspired Oxygen 36 %; HCO3 ABG 24.4 mEq/l (22.0-26.0); Oxygen Content ABG 22.1 %vol (16.0-22.0); Oxygen Saturation ABG 97.2 % (95.0-100.0); Oxyhemoglobin 96.7 % THb (90.0-100.0); PCO2 ABG 47.5 mmHg (35.0-45.0); PO2 ABG 100.7 mmHg (80.0-100.0); Total Hemoglobin 16.2 g/dL (12.0-18.0); pH ABG 7.329 (7.350-7.450)
[2021-03-03 20:26] LABS: Device NASAL CANNULA; Site Drawn RIGHT RADIAL
--- NOTE | 2021-03-03 20:38 | PM.CNCAR ---
Assessment and Plan Assessment and plan (1) Atrial fibrillation with rapid ventricular response: Code(s): I48.91 - Unspecified atrial fibrillation Status: Acute Assessment and Plan: Patient, with apparent history of AFib, was found to have AFib RVR today. Heart rate is still not well controlled on metoprolol 25 mg p.o. b.i.d. (patient's usual propranolol is not on our formulary). Seems to be tolerating it well with no CHF. TSH normal Add p.r.n. metoprolol IV push and increase the frequency of metoprolol to 25 mg q.6 hours Echocardiogram if none done in the last year Will look for old records (2) Hypertension: Code(s): I10 - Essential (primary) hypertension Status: Acute Assessment and Plan: Blood pressure at goal. (3) Back pain: Qualifiers: Back pain laterality: midline Back pain location: back pain in unspecified location Chronicity: acute Qualified Code(s): M54.9 - Dorsalgia, unspecified Code(s): M54.9 - Dorsalgia, unspecified Status: Acute Assessment and Plan: Burst fracture of T11 (4) Confusion: Code(s): R41.0 - Disorientation, unspecified Status: Acute Assessment and Plan: Likely has some underlying dementia History of Present Illness History of Present Illness Consult date/time: 03/03/21 20:38 Consult reason: atrial fibrillation Reason For Visit: Atrial Fibrillation w/ Rapid Ventricular Response Narrative: Frank Barrera is an 85-year-old female whom we were asked to see at the request of the ER physician and hospitalist for advice and opinion regarding her AFib RVR, in consultation. Ms. Barrera has been having trouble with back pain and been to ER is recently for evaluation. She was found, on today's evaluation for back pain, to be in AFib RVR and started on a Cardizem drip, which has subsequently been discontinued. Now her heart rate is running 115-1 30s.. MRI of her spine showed an acute burst fracture of T11. Apparently she has a history of paroxysmal AFib as she says she has had fast heartbeats before and anticoagulated with Eliquis, and treated with propranolol. Her EKGin December showed sinus rhythm. She denies any chest pain or shortness of breath. Review of Systems Review of Systems: ROS is obtained from the chart. The patient has ROS is unreliable due to confusion. ROS unobtainable: Yes unobtainable due to mental status (Patient is confused and only a limited review of systems is obtainable) Constitutional: Constitutional: Reports no additional constitutional complaints Eyes: Eyes: Reports no additional eye complaints ENT: Denies Normal hearing present Cardiovascular: Cardiovascular: Denies chest pain, Denies leg edema, Denies lightheadedness and Denies palpitations Respiratory: Respiratory: Denies dyspnea and Denies dyspnea on exertion Gastrointestinal: Gastrointestinal: Denies abdominal pain Genitourinary: Genitourinary: Denies hematuria Musculoskeletal: Musculoskeletal: Reports back pain Neurologic: Reports system reviewed and no additional complaints, except as documented and Reports confusion Psychiatric: Psychiatric: Reports confusion PMFSH Past Medical History Medical History Asthma Back pain Breast CA Carpal tunnel syndrome [place] (hard of hearing) Hyperlipidemia Hypertension Tachycardia Surgical History Surgical History History of cataract surgery History of knee surgery lt Hx of lumpectomy Family History Family History Mother Cerebrovascular accident Cancer Father Acute myocardial infarction Daughter , Cancer, patient preferred not to go into deta
[2021-03-04] VITALS (19 sets, daily range): BP systolic 95–163; BP diastolic 63–99; PULSE 67–143; RESP 16–22; TEMP 36.4–37.8; O2SAT 92–100
--- NOTE | 2021-03-04 00:17 | PM.EVENT ---
Event Note Event Note Event Note: I was called to the bedside during the night because the patient was lethargic and was not arousable. I gave her some Narcan and she woke up and became very anxious. The patient was very confused. We obtained a ABGs and chest x-ray. We also sent her down for CT of the brain without contrast.
[2021-03-04 01:31] LABS: Add Urine Microscopic? NO; Appearance Urine Clear (Clear); Bilirubin Urine Negative (Negative); Blood Urine Negative (Negative); Color Urine Yellow (Yellow); Glucose Urine UA Negative (Negative); Ketones Urine Negative (Negative); Leukocyte Esterase Ur Negative LEU/UL (Negative); Nitrate Urine Negative (Negative); Protein Urine Negative (Negative); Specific Grav Ur 1.009 (1.001-1.035); Urobilinogen Urine Negative mg/dL (<2.0)
[2021-03-04 07:03] LABS: Hematocrit 51.8 % (37.0-47.0); Hemoglobin 16.7 g/dL (12.0-15.0); Mean Corpuscular HGB Conc 32.2 g/dl (32-36); Mean Corpuscular Hemoglobin 29.8 pg (26-34); Mean Corpuscular Volume 92.3 fl (80-100); Mean Platelet Volume 10.3 fl (7.4-10.4); Platelet Count Result 228 k/mm3 (150-375); Red Blood Count 5.61 M/mm3 (4.2-5.4); Red Cell Distribution Width 14.3 % (11.5-14.5)
[2021-03-04] MEDS: METOPROLOL TARTRATE INJ 5 MG/5 ML VIAL IV PUSH (08:25)
--- NOTE | 2021-03-04 09:20 | PM.CNOR ---
Assessment and Plan Assessment and plan (1) T11 vertebral fracture: Qualifiers: Encounter type: initial encounter Fracture type: closed Fracture morphology: burst- stable Qualified Code(s): S22.081A - Stable burst fracture of T11-T12 vertebra, initial encounter for closed fracture Code(s): S22.089A - Unspecified fracture of T11-T12 vertebra, initial encounter for closed fracture Status: Acute Assessment and Plan: MRI of the thoracic spine reveals an acute burst fracture of T11 with less than 1/5 loss of height and retropulsion of bone 2 mm into the central spinal canal. Per the medical record, no obvious cause of the T11 burst fracture. Unable to review results with patient due to current altered mental status. Per the medical record, the patient received both pain medication and baclofen t.i.d. yesterday. She became acutely confused yesterday evening. she has since had a head CT, UA and chest x-ray which do not reveal any signs of infection or acute pathology. CRP is mildly elevated. Abdominal CT with no evidence of acute findings to correlate to current physical exam. Patient is also in AFib with RVR. She is being followed by Cardiology as well. Patient to be fit with a TLSO brace. PT and OT with weight-bearing as tolerated pending improvement in medical condition and mental status. Limit narcotics. We will continue to monitor. (2) Confusion: Code(s): R41.0 - Disorientation, unspecified Status: Acute (3) Atrial fibrillation with rapid ventricular response: Code(s): I48.91 - Unspecified atrial fibrillation Status: Acute Assessment and Plan: Patient currently on telemetry and diltiazem drip. Cardiology following. (4) Acute metabolic encephalopathy: Code(s): G93.41 - Metabolic encephalopathy Status: Acute Assessment and Plan: Head CT negative for acute pathology. UA and chest x-ray do not show any signs of infection. Blood cultures have been drawn. CRP mildly elevated. Additional Plan Reviewed current physical exam, altered mental status and MRI findings with Dr. Greer who is my attending physician consulted for this case. Plan for continued conservative treatment at this time. Patient to be fit with a TLSO brace pending improvement and medical stability and altered mental status. PT and OT with weight-bearing as tolerated per Dr. Greer. This document was completed by using M*Modal Fluency Direct speech recognition software, therefore shaker plate operator variances may occur. Despite proofreading, typographical errors may also occur. History of Present Illness HPI Consult date: 03/04/21 Consult reason: fracture (T11 Burst Fracture ) Chief complaint: Atrial Fibrillation w/ Rapid Ventricular Response Narrative: 85-year-old female admitted to [facility] with acute onset back pain. She does have a chronic history of back pain has been seen at both [facility] in [facility] due to her pain. Upon initial admission, patient was alert and oriented x4 with some disorientation to situation or her history of pain. Patient is currently A&O x 0. Unable to obtain history of present illness from patient. No family currently at bedside. Per the medical record, the patient had previously stated that her pain began 3 days prior to arriving to the emergency room. She reported pain in the middle of her back at that time and it was so severe that she was unable to ambulate. Per the medical record, the patient complained of no pain at rest but it was a 10/10 while ambulating. She has no recollection of any trauma or falls. There is also history of her having sought treatment from Dr. Kang in [place] and had undergone injections for her spine previously but cannot remember the last time she saw this doctor. A MRI of the thoracic and lumbar spine reveals an acute burst fracture of T11 with less than 1/5 loss of height and retropulsion of bone 2 mm and
[2021-03-04 09:49] LABS: Acetaminophen < 10 ug/mL (10-30); Salicylate < 1.0 mg/dL (2-20)
[2021-03-04 09:59] LABS: Ammonia < 9 umol/L (9-30)
[2021-03-04 10:00] LABS: Alanine Aminotransferase 14 U/L (4-35); Albumin Level 3.9 g/dL (3.5-5.1); Alkaline Phosphatase 70 U/L (38-126); Aspartate Amino Transferase 27 U/L (14-36); Bilirubin,Total 0.6 mg/dL (0.2-1.3)
[2021-03-04] MEDS: LACTATED RINGERS 1,000 ML 100 ML IV CONT (10:40)
--- NOTE | 2021-03-04 10:41 | PM.IMPN ---
Progress Note: A&P Assessment and Plan (1) Acute metabolic encephalopathy: Code(s): G93.41 - Metabolic encephalopathy Status: Acute Assessment and Plan: Suspect could be due to baclofen and [place] used for pain. These have been stopped and IV fluids have been started -head CT negative for acute pathology -UA and chest x-ray does not show any signs of infection. Blood cultures have been drawn this morning. CRP mildly elevated -ammonia level less than 9 and TSH within normal limits. Await B12 -ABG done overnight, will repeat today. We are still waiting on the BMP from this morning -salicylate and Tylenol levels not elevated -will obtain abdominal pelvis CT -family updated (2) Atrial fibrillation with rapid ventricular response: Code(s): I48.91 - Unspecified atrial fibrillation Status: Acute Assessment and Plan: Patient continues to an elevated heart rate currently a 129 -she is unable to take her oral medications in cardiology has been consulted. Plan to restart the diltiazem drip. She did well with this yesterday. Echo pending -she is usually on long-acting propanolol (held) and Eliquis -cardiology consulted, appreciate their recommendations (3) T11 vertebral fracture: Code(s): S22.089A - Unspecified fracture of T11-T12 vertebra, initial encounter for closed fracture Status: Acute Assessment and Plan: Likely the cause of her back pain, no spinal compression according to MRI -will avoid narcotic and muscle relaxing pain medications -IV Tylenol ordered (4) Hypertension: Code(s): I10 - Essential (primary) hypertension Status: Acute Assessment and Plan: Last blood pressure 125/79 -continue diltiazem drip. Patient unable to take losartan and oral Lasix at this time (5) Weakness: Code(s): R53.1 - Weakness Status: Acute Assessment and Plan: As above -PT and OT have been ordered although does not appear the patient will be able to participate at this time -discussed option of SNF yesterday when she was coherent and she did not want to go to SNF. She would like to go home with therapy if she could Time Spent With Patient Time with patient: 25 - 35 minutes Subjective Date/time seen: 03/04/21 10:41 Interval history: Pt is a 85-year-old female here for vertebral fracture. Patient was seen today and is much more confused. She is able to move all of her limbs spontaneously but would not answer any questions. She is not able to indicate if she is in any pain. Nurse states that she was confused last night with dinner but worsened over night. They gave her Narcan without much improvement. I called and spoke with the daughter, Aleta, about the plan of care. Review of Systems Review of Systems: All systems reviewed & are unremarkable except as noted in HPI and below Exam Narrative: General: Well developed well nourished patient in NAD HEENT: normocephalic Neck: supple Neuro: Alert but not oriented. Resists pain and opening her eyes. Does not follow commands but moves all limbs spontaneously CV: Irregularly irregular. Telemetry shows AFib RVR 129 Resp: Does not cooperate with exam and does not take very big breaths. Slight crackles at the bases Abd: Soft, non distended. No pain to palpation. Positive bowel sounds Extremities: No swelling, erythema, or pain to palpation. Objective Data Vital Signs Vital Signs: Vital Signs - 24 hr 03/03/21 16:00 03/03/21 18:00 03/03/21 20:00 Temperature 97.1 F L 97.9 F Pulse Rate 123 H 115 H 115 H Respiratory Rate 18 18 Blood Pressure 96/50 L 102/57 L Pulse Oximetry 96 91 03/03/21 20:07 03/03/21 22:00 03/03/21 23:11 Temperature 97.9 F Pulse Rate 110 H 79 87 Respiratory Rate 20 Blood Pressure 101/59 L Pulse Oximetry 94 98 03/04/21 00:00 03/04/21 02:00 03/04/21 03:22 Temperature 97.5 F L Pulse Rate 85 95 67 Respiratory Ra
[2021-03-04 10:47] LABS: Anion Gap 10 mmol/L (8-16); Blood Urea Nitrogen 14 mg/dL (7-17); Calcium 10.2 mg/dL (8.4-10.2); Carbon Dioxide 26 mmol/L (22-30); Chloride 105 mmol/L (98-107); Estimated CRCL calculation 29 ml/min; Estimated Glomerular Filt Rate 43; Glucose 106 mg/dL (65-110); Potassium 5.3 mmol/L (3.4-5.0); Sodium 141 mmol/L (137-145)
[2021-03-04 10:54] LABS: Alveolar/Arterial O2 Gradient 42.2 mmHg; Base Excess ABG 0.1 mEq/l (+/-2.0); Carboxyhemoglobin 0.3 % THb (0-2.0); Fractional Inspired Oxygen 24 %; HCO3 ABG 25.4 mEq/l (22.0-26.0); Methemoglobin ABG 0.3 %THb (0-1.5); Oxygen Content ABG 21.9 %vol (16.0-22.0); Oxygen Saturation ABG 95.2 % (95.0-100.0); Oxyhemoglobin 94.6 % THb (90.0-100.0); PCO2 ABG 43.4 mmHg (35.0-45.0); PO2 ABG 77.3 mmHg (80.0-100.0); PO2 FiO2 Ratio Arterial Blood 3.22 %; Reduced Hemoglobin 4.8 %THb (0-5.0); Total Hemoglobin 16.5 g/dL (12.0-18.0); pH ABG 7.385 (7.350-7.450)
[2021-03-04 10:55] LABS: Device NASAL CANNULA; Modified Allen's Test Pass; Site Drawn RIGHT RADIAL
[2021-03-04 11:56] LABS: Folic Acid > 20.0 ng/mL (2.76->20)
[2021-03-04] MEDS: SODIUM CHLORIDE 0.9% IV 1,000 ML 100 ML IV CONT ×2 (12:05→22:11)
[2021-03-04] MEDS: LORazepam INJ (*CRX) 2 MG/ML VIAL 0.5 MG IV PUSH ×2 (12:23→22:16)
--- NOTE | 2021-03-04 12:29 | PDONCCN ---
HPI - Date of Consult Date/Time: 03/04/21 12:29 Requesting Physician: Zoe Vivas PA-C Primary Care Provider: Juanpablo Moses, - Consult Narrative Reason for consult: Erythrocytosis and leukocytosis Narrative: Frank Barrera is a 85 year old female with history of recurrent breast cancer currently on endocrine therapy with anastrozole. She also has a history of atrial fibrillation currently on Eliquis. She came into the hospital with complain of back pain. Patient is quite disoriented and combative at this time. History was obtained with discussion with and daughter. Due to her back pain she received pain medication and since then she has been having mental status changes. CT abdomen and pelvis was done that showed small pleural effusion. Thoracic MRI showed acute T11 burst fracture with moderate thoracic spondylosis. MRI of lumbar spine showed severe lumbar spondylosis. Labs showed elevated hemoglobin of 16.7 with hematocrit of 51.8 and WBC of 12.0. Patient has no previous history of thromboembolic events including stroke and heart attack. She is already on Eliquis. Review of Systems - Review of Systems All systems reviewed & are unremarkable except as noted in HPI and bel (Patient is quite confused and combative) - Neurologic Reports system reviewed and no additional complaints, except as documented, Reports confusion, Denies hearing normal [facility] Medical History: Medical History (Last Reviewed 03/03/21 @ 20:51 by Rosa Elena Batista MD) Asthma Back pain Breast CA Carpal tunnel syndrome [place] (hard of hearing) Hyperlipidemia Hypertension Tachycardia Surgical History: Surgical History (Last Reviewed 03/03/21 @ 20:51 by Rosa Elena Batista MD) History of cataract surgery History of knee surgery lt Hx of lumpectomy Family History: Family History (Last Reviewed 03/03/21 @ 20:51 by Rosa Elena Batista MD) Mother Cerebrovascular accident Cancer Father Acute myocardial infarction Daughter , Cancer, patient preferred not to go into detail Cancer - Social History Social History: Social History (Last Reviewed 03/03/21 @ 20:51 by Rosa Elena Batista MD) Gender Identity: Gender identity (if verbalized by the patient): Female Alcohol Use: Alcohol intake: never Substance Use: Substance use: never Others: Spiritual care concerns: No Smoking Status: Smoking status: Never smoker Meds Home Medications Medication Instructions Recorded Confirmed Type apixaban [Eliquis] 5 mg PO BID #60 tablet 12/27/19 03/03/21 Rx losartan 50 mg PO DAILY 12/27/19 03/03/21 History mometasone [Asmanex Twisthaler] 1 inh INHALATION BID 12/27/19 03/03/21 History propranolol [InnoPran XL] 80 mg PO DAILY 12/27/19 03/03/21 History simvastatin 20 mg PO DAILY 12/27/19 03/03/21 History acetaminophen 500 mg PO Q6H PRN 03/03/21 03/03/21 History baclofen 10 mg PO TID 03/03/21 03/03/21 History exemestane 25 mg PO DAILY 03/03/21 03/03/21 History furosemide 20 mg PO DAILY 03/03/21 03/03/21 History Allergies Allergy/AdvReac Type Severity Reaction Status Date / Time levofloxacin Allergy Intermediate Swelling Verified 03/03/21 04:29 Cephalosporins Allergy Mild Swelling Verified 03/03/21 04:29 Penicillins Allergy Mild Hives Verified 03/03/21 18:40 Quinolones Allergy Mild Hives Verified 03/03/21 04:29 Results - Labs CBC & Chem 7: 03/04/21 06:32 03/04/21 09:01 Labs: Short CBC 03/04/21 Range/Units 06:32 WBC 12.0 H (4.5-10.0) K/mm3 Hgb 16.7 H (12.0-15.0) g/dL Hct 51.8 H (37.0-47.0) % Plt Count 228 (150-375) k/mm3 [facility] 03/04/21 09:01 Sodium 141 Potassium 5.3 H Chloride 105 Carbon Dioxide 26 BUN 14 Creatinine 1.20 H Glucose 106 Calcium 10.2 Liver Function 03/04/21 Range/Units 09:00 Total Bilirubin 0.6 (0.2-1.3) mg/dL Direct Bilirubin 0.0 (0-0.3) mg/dL AST 27 (14-36) U/L A
--- NOTE | 2021-03-04 12:30 | PCOTNOTE ---
Unable to perform OT evaluation this date due to awaiting ortho consult. Will attempt at a later date/time.
--- NOTE | 2021-03-04 12:37 | PCPTNOTE ---
Unable to perform PT evaluation this date due to awaiting ortho consult. Will attempt at a later date/time
--- NOTE | 2021-03-04 13:12 | PC.NURSE ---
On 03/04/21, the student, [Jigar Bartlett], provided care and completed [facility] documentation on this patient. I have reviewed the student's documentation and agree with the findings.
[2021-03-04 13:33] LABS: Anion Gap 6 mmol/L (8-16); Blood Urea Nitrogen 15 mg/dL (7-17); Calcium 9.1 mg/dL (8.4-10.2); Carbon Dioxide 26 mmol/L (22-30); Chloride 103 mmol/L (98-107); Estimated CRCL calculation 32 ml/min; Estimated Glomerular Filt Rate 47; Glucose 106 mg/dL (65-110); Potassium 4.4 mmol/L (3.4-5.0); Sodium 135 mmol/L (137-145)
--- NOTE | 2021-03-04 13:33 | PCOTNOTE ---
Will complete OT evaluation after patient has been fitted with TLSO brace. Will follow.
--- NOTE | 2021-03-04 13:36 | PCPTNOTE ---
Will complete PT evaluation after patient has been fitted with TLSO brace. Will follow.
--- NOTE | 2021-03-04 17:01 | PM.PNCARD ---
Progress Note: A&P Assessment and Plan (1) Atrial fibrillation with rapid ventricular response: Code(s): I48.91 - Unspecified atrial fibrillation Status: Acute Assessment and Plan: Patient, with apparent history of AFib, was found to have AFib RVR earlier this week. Was initially controlled on IV diltiazem so was switched to p.o.. However, because of her neurologic status she is no longer able to take meds p.o.. She has been switched back to IV diltiazem. She is not adequately rate controlled on her current dose. Therefore, I will increase her diltiazem dose to 15 milligrams/hour. Add p.r.n. metoprolol IV push and increase the frequency of metoprolol to 25 mg q.6 hours No evidence of CHF on exam Echocardiogram showed hyperdynamic left ventricular systolic function with an ejection fraction greater than 70%. She does have grade 2 diastolic dysfunction. (2) Hypertension: Code(s): I10 - Essential (primary) hypertension Status: Acute Assessment and Plan: Blood pressure at goal. (3) Back pain: Qualifiers: Back pain laterality: midline Back pain location: back pain in unspecified location Chronicity: acute Qualified Code(s): M54.9 - Dorsalgia, unspecified Code(s): M54.9 - Dorsalgia, unspecified Status: Deleted Assessment and Plan: Burst fracture of T11 (4) Confusion: Code(s): R41.0 - Disorientation, unspecified Status: Acute Assessment and Plan: Likely has some underlying dementia (5) Acute metabolic encephalopathy: Code(s): G93.41 - Metabolic encephalopathy Status: Acute Assessment and Plan: Possibly due to baclofen and [place] use during this hospitalization. Workup has been negative so far including head CT, brain MRI, UA, chest x-ray, blood cultures, absent min and pelvis CT. Management per primary service. Subjective Date/time seen: 03/04/21 17:01 Cardiology follow up for atrial fibrillation Date of service 03/04/21: Patient had became lethargic and unarousable last night. Work up in progress to determine etiology of her acute encephalopathy. So far head CT negative. Date of service 03/05/21: Patient remains somewhat combative and she is not oriented. She had brain MRI today which was negative for any acute process. Review of Systems Review of Systems: ROS unobtainable: Yes unobtainable due to mental status (Patient is confused and only a limited review of systems is obtainable) Constitutional: Constitutional: Reports no additional constitutional complaints Eyes: Eyes: Reports no additional eye complaints ENT: Denies Normal hearing present Cardiovascular: Cardiovascular: Denies chest pain, Denies leg edema, Denies lightheadedness, Denies palpitations, Denies dyspnea and Denies dyspnea on exertion Respiratory: Respiratory: Denies dyspnea and Denies dyspnea on exertion Gastrointestinal: Gastrointestinal: Denies abdominal pain Genitourinary: Genitourinary: Denies hematuria Musculoskeletal: Musculoskeletal: Reports back pain Neurologic: Reports system reviewed and no additional complaints, except as documented, Denies Normal hearing present and Reports confusion Psychiatric: Psychiatric: Reports confusion Endocrine: Endocrine: Denies palpitations Exam Const: General: comfortable, no acute distress and confusion Orientation/consciousness: No patient oriented x3 and confusion Limitations: altered mental status HENMT: Head: normal to inspection General nose exam: no epistaxis Mouth: Yes moist mucous membranes Eyes: EOM: EOMs intact bilaterally Neck: Neck: supple Thyroid: thyroid normal Resp: Effort & Inspection: normal respiratory effort Auscultation: clear to auscultation bilaterally Cardio: Rate: tachycardic Rhythm: abnormal rhythm irregularly irregular Heart sounds: no murmurs GI: Inspection: non-distended Auscultation: normal bowel sounds Urinary Catheter: Urinary Ca
--- NOTE | 2021-03-04 21:01 | ECHO_ITS ---
Patient Info Name: Frank Barrera Age: 85 years : 1935 Gender: Female Ht: 62 in Wt: 171 lbs BSA: 1.87 m2 HR: 108 bpm BP: 135 / 83 mmHg Heart Rhythm: Atrial Fibrillation, Tachycardia Technical Quality: Fair Exam Date: 03/04/2021 2:41 PM Exam Location: [facility] Card Pulmonary Patient Status: Inpatient Admit Date: 03/04/2021 Staff Ordering Physician: Rosa Elena Batista MD Clinical Nurse: Chasity Gooden RDCS Attending Provider: Zoe Vivas PA-C Referring Physician: Lynne FROST; Exam Type: CA echo doppler color flow Study Info Indications - NEW AFIB Complete two-dimensional, color flow and Doppler transthoracic echocardiogram is performed. Summary 1. Complete two-dimensional, color flow and Doppler transthoracic echocardiogram is performed. 2. Ventricular size with moderate concentric hypertrophy. Hyperdynamic left ventricular systolic function with an ejection fraction greater than 70%. Grade 2 diastolic dysfunction is noted. No segmental wall motion abnormalities. 3. Left atrial chamber dimension is severely enlarged. 4. Right atrial chamber dimension is moderately enlarged. 5. There is mild tricuspid valve regurgitation. 6. Moderate pulmonary hypertension, estimated pulmonary arterial systolic pressure is 57 mmHg. 7. AFib with a rapid ventricular response, heart rate 120-140. 8. Technically difficult study; the patient was not able to cooperate. Left Ventricle Left ventricular chamber dimension is normal. Left ventricular systolic function is normal, estimated at >70%. There is moderately increased left ventricular wall thickness. Left ventricular septal wall motion is normal. The left ventricular diastolic function is grade II diastolic dysfunction. Right Ventricle Right ventricular chamber dimension is normal. Right ventricular systolic function is normal. Left Atria Left atrial chamber dimension is severely enlarged. Right Atria Right atrial chamber dimension is moderately enlarged. Aortic Valve The aortic valve is trileaflet. There is no aortic valve sclerosis. There is no aortic valve stenosis. There is no aortic valve regurgitation. Pulmonic Valve The pulmonic valve is normal. There is no pulmonic valve stenosis. There is no pulmonic regurgitation. Mitral Valve The mitral valve has normal leaflets. There is no mitral valve stenosis. There is trace mitral valve regurgitation. Tricuspid Valve The tricuspid valve leaflets are normal. There is no significant tricuspid valve stenosis. There is mild tricuspid valve regurgitation. Moderate pulmonary hypertension, estimated pulmonary arterial systolic pressure is 57 mmHg. Pericardium/Pleural The pericardium appears normal. There is no pericardial effusion. Inferior Vena Cava Normal inferior vena cava with >50% collapse upon inspiration consistent with Empty right atrial pressure, 10 mmHg. Aorta The aortic root size at the sinus of Valsalva is normal. The prox ascending aorta size is not well visualized. The aorta arch size is not well visualized measuring Empty. Left Ventricular Outflow Tract Name Value Normal LVOT 2D LVOT Diameter 1.9 cm LVOT Doppler
[2021-03-05] VITALS (16 sets, daily range): BP systolic 149–169; BP diastolic 74–100; PULSE 95–144; RESP 20–26; TEMP 36.4–38.3; O2SAT 91–100
[2021-03-05] MEDS: HALOPERIDOL LACTATE 5 MG/ML VIAL IM (01:29)
[2021-03-05] MEDS: METOPROLOL TARTRATE INJ 5 MG/5 ML VIAL IV PUSH ×2 (02:30→06:26)
[2021-03-05 06:38] LABS: Hematocrit 47.1 % (37.0-47.0); Hemoglobin 15.3 g/dL (12.0-15.0); Mean Corpuscular HGB Conc 32.5 g/dl (32-36); Mean Corpuscular Hemoglobin 29.8 pg (26-34); Mean Corpuscular Volume 91.6 fl (80-100); Mean Platelet Volume 10.4 fl (7.4-10.4); Platelet Count Result 254 k/mm3 (150-375); Red Blood Count 5.14 M/mm3 (4.2-5.4); Red Cell Distribution Width 13.9 % (11.5-14.5); White Blood Count 14.7 K/mm3 (4.5-10.0)
[2021-03-05 06:59] LABS: Anion Gap 9 mmol/L (8-16); Blood Urea Nitrogen 12 mg/dL (7-17); Calcium 9.4 mg/dL (8.4-10.2); Carbon Dioxide 26 mmol/L (22-30); Chloride 106 mmol/L (98-107); Estimated CRCL calculation 42 ml/min; Estimated Glomerular Filt Rate > 60; Glucose 99 mg/dL (65-110); Potassium 4.6 mmol/L (3.4-5.0); Sodium 141 mmol/L (137-145)
[2021-03-05] MEDS: LORazepam INJ (*CRX) 2 MG/ML VIAL 0.5 MG IV PUSH (07:04)
[2021-03-05 07:09] LABS: CRP 14.5 mg/dL (<1.0)
--- NOTE | 2021-03-05 08:06 | PCOTNOTE ---
Attempted OT eval this AM, per RN, patient is not appropriate today due to acute encephalopathy and being obtunded. She states she may be more appropriate tomorrow. TLSO brace has also not arrived yet.
[2021-03-05] MEDS: SODIUM CHLORIDE 0.9% IV 1,000 ML 100 ML IV CONT ×2 (08:21→19:04)
--- NOTE | 2021-03-05 08:25 | PM.IMPN ---
Progress Note: A&P Assessment and Plan (1) Acute metabolic encephalopathy: Code(s): G93.41 - Metabolic encephalopathy <Zoe GarciaSIN null - Last Filed: 03/05/21 08:45> Status: Acute <Zoe VivasSIN - Last Filed: 03/05/21 08:45> Assessment and Plan: Suspect could be due to baclofen and [place] used for pain. These have been stopped and IV fluids have been started. She did not sleep overnight and may have hospital delirum as well now -will try Seroquel at night -head CT negative for acute pathology, order MRI -UA and chest x-ray does not show any signs of infection. Blood cultures NGTD. CRP mildly elevated -ammonia level less than 9 and TSH within normal limits. B12 low end of normal -ABG 03/04 looks pretty good with po2 slightly low -salicylate and Tylenol levels not elevated -abd/pelv CT without abnormality <Zoe Denise SIN Vivas - Last Filed: 03/05/21 08:45> (2) Leukocytosis: Code(s): D72.829 - Elevated white blood cell count, unspecified <Zoe GarciaSIN null - Last Filed: 03/05/21 08:45> Status: Acute <Zoe GarciaSIN null - Last Filed: 03/05/21 08:45> Assessment and Plan: Leukocytosis worsening, fevers overnight, and crp from 2.9 to 14.5 -no evidence of infection on CXR, abd/pelv CT, or blood cultures - no meningeal signs - repeat UA, check covid (pt unvaccinated and has been to multiple ERs in the last week) <Zoe GarciaSIN null - Last Filed: 03/05/21 08:45> (3) Atrial fibrillation with rapid ventricular response: Code(s): I48.91 - Unspecified atrial fibrillation <Zoe GarciaSIN null - Last Filed: 03/05/21 08:45> Status: Acute <Zoe Walker SIN Vivas - Last Filed: 03/05/21 08:45> Assessment and Plan: Patient continues to an elevated heart rate currently a 124 -she is unable to take her oral medications in cardiology has been consulted. Continue diltiazem drip. -she is usually on long-acting propanolol (held) and Eliquis but not taking oral meds right now -cardiology consulted, appreciate their recommendations <Zoe Vivas PA-C - Last Filed: 03/05/21 08:45> (4) T11 vertebral fracture: Qualifiers: Encounter type: initial encounter Fracture morphology: burst- stable Fracture type: closed Qualified Code(s): S22.081A - Stable burst fracture of T11-T12 vertebra, initial encounter for closed fracture <Zoe Vivas PA-C - Last Filed: 03/05/21 08:45> Code(s): S22.089A - Unspecified fracture of T11-T12 vertebra, initial encounter for closed fracture <oZe Vivas PA-C - Last Filed: 03/05/21 08:45> Status: Acute <Zoe Vivas PA-C - Last Filed: 03/05/21 08:45> Assessment and Plan: Likely the cause of her back pain, no spinal compression according to MRI -will avoid narcotic and muscle relaxing pain medications -IV Tylenol ordered -TLSO brace will be ordered <Zoe Vivas PA-C - Last Filed: 03/05/21 08:45> (5) Hypertension: Code(s): I10 - Essential (primary) hypertension <Zoe Vivas PA-C - Last Filed: 03/05/21 08:45> Status: Acute <Zoe Vivas PA-C - Last Filed: 03/05/21 08:45> Assessment and Plan: Last blood pressure 159/89 -continue diltiazem drip. Patient unable to take losartan and oral Lasix at this time <Zoe Vivas PA-C - Last Filed: 03/05/21 08:45> (6) Weakness: Code(s): R53.1 - Weakness <Zoe Vivas PA-C - Last Filed: 03/05/21 08:45> Status: Acute <Zoe Vivas PA-C - Last Filed: 03/05/21 08:45> Assessment and Plan: As above -PT and OT have been ordered although does not appear the patient will be able to participate at this time -discussed option of SNF on admission when she was coherent and she did not want to go to SNF. She would like to go home with therapy if she could
--- NOTE | 2021-03-05 10:04 | PCPTNOTE ---
As per OT note - pt not appropriate today for PT evaluation. Pt is combative. Brace has not arrived. Will check on pt's status tomorrow.
[2021-03-05 10:16] LABS: EDCOVIDSCREEN Negative (Negative)
--- NOTE | 2021-03-05 10:33 | PM.PNORT ---
Progress Note: A&P Assessment and Plan (1) T11 vertebral fracture: Qualifiers: Encounter type: initial encounter Fracture type: closed Fracture morphology: burst- stable Qualified Code(s): S22.081A - Stable burst fracture of T11-T12 vertebra, initial encounter for closed fracture Code(s): S22.089A - Unspecified fracture of T11-T12 vertebra, initial encounter for closed fracture Status: Acute Assessment and Plan: MRI of the thoracic spine reveals an acute burst fracture of T11 with less than 1/5 loss of height and retropulsion of bone 2 mm into the central spinal canal. Per the medical record, no obvious cause of the T11 burst fracture. No reported history of trauma or falls. No evidence of abscess on MRI. Patient does have a history of breast cancer with recurrence, possible metastatic cause? Oncology following. Per the medical record, the patient received both pain medication and baclofen t.i.d. on 03/03. She became acutely confused on the evening of 03/03 and her mentation remains altered today. She has since had a head CT, UA and chest x-ray which do not reveal any signs of infection or acute pathology. CRP is rising, WBC elevated. Brain MRI pending. Patient to be fit with a TLSO brace when she is able to tolerate fitting if improvement in mentation. PT and OT with weight-bearing as tolerated pending improvement in medical condition and mental status. Limit narcotics. (2) Confusion: Code(s): R41.0 - Disorientation, unspecified Status: Acute (3) Atrial fibrillation with rapid ventricular response: Code(s): I48.91 - Unspecified atrial fibrillation Status: Acute Assessment and Plan: Patient currently on telemetry and diltiazem drip. Cardiology following. (4) Acute metabolic encephalopathy: Code(s): G93.41 - Metabolic encephalopathy Status: Acute Assessment and Plan: Head CT negative for acute pathology. UA and chest x-ray do not show any signs of infection. Blood cultures have been drawn. CRP rising. Now with elevated WBC as well. Brain MRI pending. Time Spent With Patient Time: Reviewed case with attending MD, Dr. Greer. No further recommendations regarding treatment plan at this time. Subjective Subjective Date/Time Seen: 03/05/21 10:00 Interval history: Patient with T11 burst fracture of unknown etiology, no history of trauma. Patient remains A&Ox0 today. Agitated in bed at time of exam. Review of Systems Review of Systems: ROS unobtainable: Yes unobtainable due to mental status Exam Const: General: confusion and uncomfortable Nutritional Appearance: overweight Orientation/consciousness: confusion Limitations: altered mental status HENMT: Head: No palpable skull fracture present, normocephalic and atraumatic Mouth: Yes dry mucous membranes Eyes: Eyelids: eyelids normal Sclera: sclerae normal Cornea: corneas normal Neck: Neck: no JVD Resp: Effort & Inspection: normal respiratory effort Cardio: Jugular venous distension: no JVD Rate: tachycardic Back/Spine/Pelvis: Thoracic/Lumbar Spine: thoracic spinal tenderness at T10, at T11 and at T12 and other (unable to fully examine due to current medical condition ) Neuro: Cognition (Neuro): abnormal cognition Motor exam (neuro): strength not 5/5 throughout (unable to assess LE strength due to mental status ) Extrem: Other: Musculoskeletal exam extremely limited due to patient's current altered mental status. Unable to follow commands. Moving legs bilaterally spontaneously as she is agitated in bed. Psych: Mental Status: other ( Altered mental status) Objective Data Vital Signs Vital Signs: Vital Signs - 24 hr 03/04/21 12:00 03/04/21 12:05 03/04/21 13:30 Temperature 37.2 C Pulse Rate 128 H 137 H 116 H Respiratory Rate 16 Blood Pressure 107/63 Pulse Oximetry 93 96 03/04/21 14:00 03/04/21 16:00 03/04/21 18:00 Temperature 36.4 C L Pulse Rate 97 12
[2021-03-05 16:43] LABS: Add Urine Microscopic? YES; Appearance Urine Cloudy (Clear); Bacteria Urine Trace /hpf; Bilirubin Urine Negative (Negative); Blood Urine 2+ (Negative); Color Urine Yellow (Yellow); Glucose Urine UA Negative (Negative); Ketones Urine 1+ mg/dL (Negative); Leukocyte Esterase Ur 3+ LEU/UL (Negative); Mucus Urine Rare /lpf; Nitrate Urine Negative (Negative); Protein Urine 1+ mg/dL (Negative); RBC Urine 51-75 /hpf (0-2); Specific Grav Ur 1.013 (1.001-1.035); Squamous Epithelial Cell Urine Rare /hpf (Few); Urobilinogen Urine Negative mg/dL (<2.0); WBC Urine >75 /hpf
[2021-03-05 18:34] LABS: INR 1.4; Prothrombin Time 16.6 Seconds (11.1-14.7)
[2021-03-05 18:35] LABS: Partial Thromboplastin Time 44.7 SECONDS (22.3-36.8)
--- NOTE | 2021-03-05 20:55 | PCRCNOTE ---
Unable to give MDI due to confusion and combativeness
[2021-03-06] VITALS (17 sets, daily range): BP systolic 127–154; BP diastolic 43–107; PULSE 77–104; RESP 15–24; TEMP 36.3–37.1; O2SAT 88–98
[2021-03-06] MEDS: SODIUM CHLORIDE 0.9% IV 1,000 ML 100 ML IV CONT ×2 (04:46→15:00)
[2021-03-06 05:33] LABS: Basophils Absolute Auto 0.1 K/mm3 (0.0-0.1); Basophils Percent Auto 0.6 % (0.2-1.2); Eosinophils Absolute Auto 0.3 K/mm3 (0-0.3); Eosinophils Percent Auto 2.1 % (0-4.4); Hematocrit 40.5 % (37.0-47.0); Hemoglobin 13.3 g/dL (12.0-15.0); Immature Granulocyte Absolute 0.06 K/mm3 (0.00-0.031); Immature Granulocyte Percent A 0.5 % (0-0.5); Lymphocytes Absolute Auto 1.71 K/mm3 (0.9-3.2); Lymphocytes Percent Auto 13.4 % (18.3-44.2); Mean Corpuscular HGB Conc 32.8 g/dl (32-36); Mean Corpuscular Hemoglobin 29.3 pg (26-34); Mean Corpuscular Volume 89.2 fl (80-100); Mean Platelet Volume 10.3 fl (7.4-10.4); Monocytes Absolute Auto 1.4 K/mm3 (0.1-0.6); Monocytes Percent Auto 10.7 % (2.6-8.5); Neutrophils Absolute Auto 9.3 K/mm3 (1.3-6.7); Neutrophils Percent Auto 72.7 % (45.5-73.1); Platelet Count Result 215 k/mm3 (150-375); Red Blood Count 4.54 M/mm3 (4.2-5.4); Red Cell Distribution Width 13.8 % (11.5-14.5); White Blood Count 12.7 K/mm3 (4.5-10.0)
[2021-03-06 05:59] LABS: Anion Gap 7 mmol/L (8-16); Blood Urea Nitrogen 10 mg/dL (7-17); CRP 19.3 mg/dL (<1.0); Calcium 8.7 mg/dL (8.4-10.2); Carbon Dioxide 25 mmol/L (22-30); Chloride 106 mmol/L (98-107); Estimated CRCL calculation 55 ml/min; Estimated Glomerular Filt Rate > 60; Glucose 88 mg/dL (65-110); Potassium 3.4 mmol/L (3.4-5.0); Sodium 138 mmol/L (137-145)
[2021-03-06 07:19] LABS: Alanine Aminotransferase 18 U/L (4-35); Albumin Level 3.1 g/dL (3.5-5.1); Alkaline Phosphatase 61 U/L (38-126); Aspartate Amino Transferase 58 U/L (14-36); Bilirubin,Total 0.9 mg/dL (0.2-1.3)
[2021-03-06 09:55] LABS: Influenza Control Positive
--- NOTE | 2021-03-06 09:57 | PCPTNOTE ---
checked on pt today, discussed with JOSE Wright; she stated pt did not have her TLSO brace yet and she is combative, confused and has restraints intact, ? due to UTI. HOLD PT evaluation today
--- NOTE | 2021-03-06 10:20 | PCOTNOTE ---
Pt on hold for today 03/06/21 per nursing. Still awaiting brace, pt agitated and confused. Will attempt again tomorrow.
--- NOTE | 2021-03-06 11:17 | PM.PNCARD ---
Progress Note: A&P Additional Plan 85-year-old lady with established history of paroxysmal atrial fibrillation. Heart rate is well controlled on the above regimen. For now I will continue this as she is still NPO hopefully she will soon be able to take oral medication and we can transition her to a p.o. regimen. At that point her some Eliquis should also be resumed. Jan Sánchez MD [facility] Subjective Date/time seen: Date of service: 03/06/21 11:17 Interval history: Follow-up visit in this 85-year-old lady with: Paroxysmal atrial fibrillation currently being treated with intravenous diltiazem and IV metoprolol with good rate control. Patient was on IV medication as she was up to 100 and unable to take any p.o. medications. Admitted to the hospital with a T11 fracture. Mental status presumably related to narcotics. This morning she is easily arousable and answers questions appropriately. She still is NPO at this time. Exam Narrative: Elderly female fidgeting with her sheets, no distress supine Const: General: comfortable, no acute distress and confusion Orientation/consciousness: No patient oriented x3 and confusion Limitations: altered mental status HENMT: Head: normal to inspection General nose exam: no epistaxis Mouth: Yes moist mucous membranes Eyes: EOM: EOMs intact bilaterally Neck: Neck: supple Thyroid: thyroid normal Resp: Effort & Inspection: normal respiratory effort Auscultation: clear to auscultation bilaterally Cardio: Rate: tachycardic Rhythm: abnormal rhythm irregularly irregular Heart sounds: no murmurs GI: Inspection: non-distended Auscultation: normal bowel sounds Urinary Catheter: Urinary Catheter: patent and draining and urine clear Skin: General skin exam: normal color and no rashes or lesions noted Neuro: General: No patient oriented x3 and confusion Cranial nerves: No Normal hearing present Cognition (Neuro): abnormal cognition Speech: normal speech Other: Patient answers most of my questions with the response ?Patrick. ? She says she lives ?with my mom and dad. ? Unable to tell me the month. She can tell me her 1st name. Extrem: General: no edema and no pedal edema Other: Intact dorsalis pedis pulses Psych: Affect: Anxious affect present Objective Data Vital Signs Vital Signs: Vital Signs - 24 hr 03/05/21 12:00 03/05/21 14:00 03/05/21 16:00 Temperature 38.0 C H 38.3 C H Pulse Rate 131 H 109 H 121 H Respiratory Rate 26 H 24 H Blood Pressure 149/74 H 154/86 H Pulse Oximetry 96 96 03/05/21 18:00 03/05/21 19:38 03/05/21 20:00 Temperature 36.8 C Pulse Rate 105 H 107 H 107 H Respiratory Rate 20 20 Blood Pressure 157/94 H Pulse Oximetry 96 96 03/05/21 20:56 03/05/21 22:00 03/06/21 00:00 Temperature 37.1 C Pulse Rate 112 H 103 H Respiratory Rate 18 Blood Pressure 133/81 Pulse Oximetry 94 96 03/06/21 02:00 03/06/21 02:50 03/06/21 04:00 Temperature 36.5 C Pulse Rate 100 103 H 83 Respiratory Rate 18 Blood Pressure 133/81 135/43 L Pulse Oximetry 97 03/06/21 05:55 03/06/21 08:00 03/06/21 09:34 Temperature 36.3 C L Pulse Rate 77 80 Respiratory Rate 24 H Blood Pressure 127/99 H Pulse Oximetry 88 L 95 03/06/21 10:13 Temperature Pulse Rate 83 Respiratory Rate Blood Pressure Pulse Oximetry Intake/Output Intake/Output: Intake & Output 03/03/21 03/04/21 03/05/21 03/06/21 23:59 23:59 23:59 23:59 Intake Total 580 1150 2590 1500 Output Total 1650 1450 675 Balance 580 -500 1140 825 Meds/Results Medications: Active Medications Generic Name Dose Route Start Last Admin Trade Name Christelle PRN Reason Stop Dose Admin Apixaban 5 mg 03/03/21 09:00 03/05/21 09:29 Apixaban 5 Mg Tablet PO Not Given BID GENI Fluticasone Propionate 2 puff 03/03/21 08:00 03/06/21 09:33 Fluticasone Prop 110 Mcg Inhaler 1 Puff INHALATION 2 puff Q12HRT GENI Administration Furosemide 20 mg
[2021-03-06] MEDS: FUROSEMIDE 20 MG TABLET PO (12:23)
[2021-03-06] MEDS: SIMVASTATIN 20 MG TABLET PO (12:27)
[2021-03-06] MEDS: LOSARTAN POTASSIUM 50 MG TABLET PO (12:27)
--- NOTE | 2021-03-06 16:12 | PM.IMPN ---
Progress Note: A&P Assessment and Plan (1) Acute metabolic encephalopathy: Code(s): G93.41 - Metabolic encephalopathy Status: Acute Assessment and Plan: Suspect could be due to baclofen and [place] used for pain. These have been stopped and IV fluids have been started. 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 Blood cultures NGTD. CRP mildly elevated -ammonia level less than 9 and TSH within normal limits. B12 low end of normal -ABG 03/04 looks pretty good with po2 slightly low -salicylate and Tylenol levels not elevated -abd/pelv CT without abnormality -Repeat UA yesterday showed positive for UTI, was started on Rocephin -Mental status significantly improved, now A/Ox2 no longer obtunded -Continue abx and monitoring (2) Leukocytosis: Code(s): D72.829 - Elevated white blood cell count, unspecified Status: Acute Assessment and Plan: -Leukocytosis worsening, fevers overnight, and crp from 2.9 to 14.5 yesterday -likely secondary to UTI found on repeat UA -Continue rocephin -Recheck labs in AM (3) Atrial fibrillation with rapid ventricular response: Code(s): I48.91 - Unspecified atrial fibrillation Status: Acute Assessment and Plan: -Patient continues to an elevated heart rate currently a 124 -she was unable to take her oral medications whie obtunded -cardiology has been consulted. Continue diltiazem drip. -she is usually on long-acting propanolol (held) and Eliquis but not taking oral meds right now -cardiology consulted, now that she is no longer obtunded will restart oral medication and restart eliquis (4) T11 vertebral fracture: Qualifiers: Encounter type: initial encounter Fracture morphology: burst- stable Fracture type: closed Qualified Code(s): S22.081A - Stable burst fracture of T11-T12 vertebra, initial encounter for closed fracture Code(s): S22.089A - Unspecified fracture of T11-T12 vertebra, initial encounter for closed fracture Status: Acute Assessment and Plan: Likely the cause of her back pain, no spinal compression according to MRI -will avoid narcotic and muscle relaxing pain medications -IV Tylenol ordered -TLSO brace per ortho who evaluated her yesterday -PT/OT now that she is no longer obtunded (5) Hypertension: Code(s): I10 - Essential (primary) hypertension Status: Acute Assessment and Plan: Last blood pressure 153/107 -continue diltiazem drip. -restart oral meds (6) Weakness: Code(s): R53.1 - Weakness Status: Acute Assessment and Plan: As above -PT and OT have been ordered, will be fitted for TLSO brace prior -Prefers to go home with therapy if she could rather than SNF placement (7) Erythrocytosis: Code(s): D75.1 - Secondary polycythemia Status: Acute Assessment and Plan: Noted on labs, no hx of this -Dr. Reece consulted -erythropoietin and JAK2 pending (8) UTI (urinary tract infection): Code(s): N39.0 - Urinary tract infection, site not specified Status: Acute Assessment and Plan: -Found on repeat UA -Started on rocephin yesterday -Continue abx -Culture w/ E. Coli, sensitivity report pending Subjective Date/time seen: 03/06/21 16:12 Interval history: Pt is a 85-year-old female here for vertebral fracture. During the course of her hospitalization she became obtunded. She was admitted with a normal mental status A/Ox4. Today she is alert to person and time only. She has no complaints currently but is still confused. Answers only some questions appropriately. Denies pain including back pain. Further hx limited secondary to
[2021-03-06 17:30] LABS: SARS-CoV-2 RNA PCR Negative
[2021-03-06] MEDS: APIXABAN 5 MG TABLET PO (20:25)
[2021-03-06] MEDS: QUEtiapine FUMARATE 25 MG TABLET PO (20:26)
[2021-03-07] VITALS (18 sets, daily range): BP systolic 128–143; BP diastolic 60–84; PULSE 91–120; RESP 15–22; TEMP 36.4–37.1; O2SAT 93–98; BMI 10.0
[2021-03-07] MEDS: SODIUM CHLORIDE 0.9% IV 1,000 ML 100 ML IV CONT ×2 (00:47→11:34)
[2021-03-07 04:49] LABS: Basophils Absolute Auto 0.1 K/mm3 (0.0-0.1); Basophils Percent Auto 0.8 % (0.2-1.2); Eosinophils Absolute Auto 0.3 K/mm3 (0-0.3); Eosinophils Percent Auto 2.1 % (0-4.4); Hematocrit 44.6 % (37.0-47.0); Hemoglobin 14.9 g/dL (12.0-15.0); Immature Granulocyte Absolute 0.07 K/mm3 (0.00-0.031); Immature Granulocyte Percent A 0.6 % (0-0.5); Lymphocytes Percent Auto 11.7 % (18.3-44.2); Mean Corpuscular HGB Conc 33.4 g/dl (32-36); Mean Corpuscular Hemoglobin 29.6 pg (26-34); Mean Corpuscular Volume 88.5 fl (80-100); Mean Platelet Volume 10.3 fl (7.4-10.4); Monocytes Absolute Auto 1.2 K/mm3 (0.1-0.6); Neutrophils Absolute Auto 8.9 K/mm3 (1.3-6.7); Neutrophils Percent Auto 74.8 % (45.5-73.1); Platelet Count Result 242 k/mm3 (150-375); Red Blood Count 5.04 M/mm3 (4.2-5.4); Red Cell Distribution Width 14.1 % (11.5-14.5); White Blood Count 11.9 K/mm3 (4.5-10.0)
[2021-03-07 05:07] LABS: Anion Gap 9 mmol/L (8-16); Blood Urea Nitrogen 6 mg/dL (7-17); Calcium 9.1 mg/dL (8.4-10.2); Carbon Dioxide 23 mmol/L (22-30); Chloride 106 mmol/L (98-107); Estimated CRCL calculation 48 ml/min; Estimated Glomerular Filt Rate > 60; Glucose 105 mg/dL (65-110); Potassium 3.3 mmol/L (3.4-5.0); Sodium 138 mmol/L (137-145)
[2021-03-07] MEDS: FUROSEMIDE 20 MG TABLET PO (08:35)
[2021-03-07] MEDS: LOSARTAN POTASSIUM 50 MG TABLET PO (08:35)
[2021-03-07] MEDS: SIMVASTATIN 20 MG TABLET PO (08:35)
[2021-03-07] MEDS: APIXABAN 5 MG TABLET PO ×2 (08:35→17:57)
[2021-03-07] MEDS: ACETAMINOPHEN 325 MG TABLET 650 MG PO ×2 (08:37→15:42)
[2021-03-07] MEDS: POTASSIUM CHLORIDE 20 MEQ TABLET PO (08:38)
--- NOTE | 2021-03-07 10:24 | PM.PNCARD ---
Progress Note: A&P Additional Plan 85-year-old lady with: Chronic atrial fibrillation being managed with rate control. Will transition her today from IV to p.o. diltiazem. Presumably her narcotics administered for her back pain with a reason for her encephalopathy. We will continue to follow telemetry with you. Jan Sánchez MD [facility] Subjective Date/time seen: Date of service: 03/07/21 10:24 Interval history: Follow-up visit in this 85-year-old lady with: Paroxysmal atrial fibrillation currently being treated with intravenous diltiazem and IV metoprolol with good rate control. Patient was on IV medication as she was up to 100 and unable to take any p.o. medications. Admitted to the hospital with a T11 fracture. Mental status presumably related to narcotics. This morning patient is doing well no longer encephalopathic and taking p.o. medication. No cardiovascular complaints Exam Narrative: Elderly female fidgeting with her sheets, no distress supine Const: General: comfortable, no acute distress and confusion Orientation/consciousness: No patient oriented x3 and confusion Limitations: altered mental status HENMT: Head: normal to inspection General nose exam: no epistaxis Mouth: Yes moist mucous membranes Eyes: EOM: EOMs intact bilaterally Neck: Neck: supple Thyroid: thyroid normal Resp: Effort & Inspection: normal respiratory effort Auscultation: clear to auscultation bilaterally Cardio: Rate: tachycardic Rhythm: abnormal rhythm irregularly irregular Heart sounds: no murmurs GI: Inspection: non-distended Auscultation: normal bowel sounds Urinary Catheter: Urinary Catheter: patent and draining and urine clear Skin: General skin exam: normal color and no rashes or lesions noted Neuro: General: No patient oriented x3 and confusion Cranial nerves: No Normal hearing present Cognition (Neuro): abnormal cognition Speech: normal speech Other: Patient answers most of my questions with the response ?[place]. ? She says she lives ?with my mom and dad. ? Unable to tell me the month. She can tell me her 1st name. Extrem: General: no edema and no pedal edema Other: Intact dorsalis pedis pulses Psych: Affect: Anxious affect present Objective Data Vital Signs Vital Signs: Vital Signs - 24 hr 03/06/21 12:00 03/06/21 14:00 03/06/21 16:00 Temperature 36.4 C 36.8 C Pulse Rate 86 93 78 Respiratory Rate 20 18 Blood Pressure 153/107 H 154/82 H Pulse Oximetry 98 93 03/06/21 18:00 03/06/21 19:28 03/06/21 20:00 Temperature 36.3 C L Pulse Rate 90 97 101 H Respiratory Rate 15 Blood Pressure 149/68 H Pulse Oximetry 98 03/06/21 21:14 03/06/21 22:00 03/07/21 00:00 Temperature 36.4 C Pulse Rate 104 H 109 H Respiratory Rate 15 Blood Pressure 143/84 H Pulse Oximetry 94 96 03/07/21 02:00 03/07/21 03:50 03/07/21 04:00 Temperature 36.8 C Pulse Rate 105 H 109 H 117 H Respiratory Rate 16 16 Blood Pressure 139/71 Pulse Oximetry 96 96 03/07/21 05:18 03/07/21 06:00 03/07/21 09:22 Temperature 36.6 C Pulse Rate 109 H 107 H 110 H Respiratory Rate 20 Blood Pressure 139/71 142/77 H Pulse Oximetry 96 03/07/21 09:38 Temperature Pulse Rate Respiratory Rate Blood Pressure Pulse Oximetry 93 Intake/Output Intake/Output: Intake & Output 03/04/21 03/05/21 03/06/21 03/07/21 23:59 23:59 23:59 23:59 Intake Total 1150 2590 4070 1840 Output Total 1650 1450 2700 1350 Balance -500 1140 1370 490 Meds/Results Medications: Active Medications Generic Name Dose Route Start Last Admin Trade Name Freq PRN Reason Stop Dose Admin Acetaminophen 650 mg 03/06/21 13:58 03/07/21 08:37 Acetaminophen 325 Mg Tablet PO 650 mg Q6H PRN Administration Mild Pain (1-3) or Fever Apixaban 5 mg 03/03/21 09:00 03/07/21 08:35 Apixaban 5 Mg Tablet PO 5 mg BID GENI Administration Fluticasone Propionate 2 puff 03/03/21 08:00
--- NOTE | 2021-03-07 14:50 | PM.IMPN ---
Progress Note: A&P Assessment and Plan (1) Acute metabolic encephalopathy: Code(s): G93.41 - Metabolic encephalopathy Status: Acute Assessment and Plan: Suspect could be due to baclofen and [place] used for pain. These have been stopped and IV fluids have been started. 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 Blood cultures NGTD. CRP mildly elevated -ammonia level less than 9 and TSH within normal limits. B12 low end of normal -ABG 03/04 looks pretty good with po2 slightly low -salicylate and Tylenol levels not elevated -abd/pelv CT without abnormality -Repeat UA yesterday showed positive for UTI, was started on Imipenem. Urine culture sensitive to Imipenem. -Mental status significantly improved, now A/Ox3 no longer obtunded -Continue abx and monitoring, IVF discontinued as she is eating/drinking normally. Continue to hold baclofen and norco. (2) Leukocytosis: Code(s): D72.829 - Elevated white blood cell count, unspecified Status: Acute Assessment and Plan: -likely secondary to UTI found on repeat UA -Continue rocephin -Improving -No fever x48 hrs (3) Atrial fibrillation with rapid ventricular response: Code(s): I48.91 - Unspecified atrial fibrillation Status: Acute Assessment and Plan: -Patient continues to an intermittently elevated heart rate currently 108 -she was unable to take her oral medications while obtunded -cardiology consulted, now that she is no longer obtunded will restart oral medication and restart eliquis -per cardiology switching from Cardizem drip to PO Cardizem (4) T11 vertebral fracture: Qualifiers: Encounter type: initial encounter Fracture morphology: burst- stable Fracture type: closed Qualified Code(s): S22.081A - Stable burst fracture of T11-T12 vertebra, initial encounter for closed fracture Code(s): S22.089A - Unspecified fracture of T11-T12 vertebra, initial encounter for closed fracture Status: Acute Assessment and Plan: Likely the cause of her back pain, no spinal compression according to MRI -will avoid narcotic and muscle relaxing pain medications -IV Tylenol ordered -TLSO brace per ortho -PT/OT now that she is no longer obtunded (5) Hypertension: Code(s): I10 - Essential (primary) hypertension Status: Acute Assessment and Plan: Last blood pressure 136/60 -restart oral meds (6) Weakness: Code(s): R53.1 - Weakness Status: Acute Assessment and Plan: As above -PT and OT have been ordered, will be fitted for TLSO brace prior -Prefers to go home with therapy if she could rather than SNF placement (7) Erythrocytosis: Code(s): D75.1 - Secondary polycythemia Status: Acute Assessment and Plan: Noted on labs, no hx of this -Dr. Reece consulted -erythropoietin and JAK2 pending (8) UTI (urinary tract infection): Code(s): N39.0 - Urinary tract infection, site not specified Status: Acute Assessment and Plan: -Found on repeat UA -Started on Imipenem yesterday -Continue abx -Culture w/ E. Coli, sensitive to Imipenem Subjective Date/time seen: 03/07/21 14:50 Interval history: Pt is a 85-year-old female here for vertebral fracture. During the course of her hospitalization she became obtunded. She was admitted with a normal mental status A/Ox4. Today she is A/Ox3 but very slow to respond, initially will answer questions wrong but does correct herself. She has no complaints currently and denies pain anywhere including her back. Still slightly confused, answers some questions appropriately. Review of Systems Review of System
[2021-03-07] MEDS: QUEtiapine FUMARATE 25 MG TABLET PO (20:13)
[2021-03-08] VITALS (10 sets, daily range): BP systolic 133–161; BP diastolic 65–89; PULSE 64–118; RESP 14–20; TEMP 36.6–36.9; O2SAT 95–98
[2021-03-08 07:31] LABS: Anion Gap 7 mmol/L (8-16); Blood Urea Nitrogen 7 mg/dL (7-17); Carbon Dioxide 27 mmol/L (22-30); Chloride 105 mmol/L (98-107); Estimated CRCL calculation 49 ml/min; Estimated Glomerular Filt Rate > 60; Glucose 111 mg/dL (65-110); Potassium 3.3 mmol/L (3.4-5.0); Sodium 139 mmol/L (137-145)
[2021-03-08] MEDS: FUROSEMIDE 20 MG TABLET PO (08:45)
[2021-03-08] MEDS: LOSARTAN POTASSIUM 50 MG TABLET PO (08:45)
[2021-03-08] MEDS: APIXABAN 5 MG TABLET PO ×2 (08:45→16:23)
--- NOTE | 2021-03-08 10:59 | PCNFU ---
Nutrition Follow-Up Complete: Inadequate Oral Intake as related to poor appetite as evidenced by po intake reported and weight loss of 15 ibs in the past 3 months. Goal: Adequate Intake of at least 75% of meals/supplements Pt. progressing towards goal. No new goal at this time. Pt current nutrition is a heart healthy diet. Last recorded weight is 79.4 kg. Recommend re-weighing pt. prior to discharge. Bowel Motility: No bowel movement documented. Labs Reviewed: K 3.3 Meds Noted: Moy Valero Cozaar, Cardizem Cd, Lopressor, Seroquel Skin: No skin breakdown at this time. WNL. Additional Notes: Checked in with patient. Pt. is receiving ensure compact BID providing an additional 220 calories and 9 grams of protein. When asked about appetite pt. states it is on and off . Some days she has a great appetite and sometimes she has little to no appetite. She has lost some weight which she thinks is due to her breast cancer coming back recently. RD will monitor every 5 days.
[2021-03-08 12:38] LABS: Basophils Absolute Auto 0.1 K/mm3 (0.0-0.1); Basophils Percent Auto 0.8 % (0.2-1.2); Eosinophils Absolute Auto 0.3 K/mm3 (0-0.3); Eosinophils Percent Auto 2.9 % (0-4.4); Hemoglobin 14.8 g/dL (12.0-15.0); Immature Granulocyte Absolute 0.05 K/mm3 (0.00-0.031); Immature Granulocyte Percent A 0.6 % (0-0.5); Lymphocytes Absolute Auto 1.56 K/mm3 (0.9-3.2); Lymphocytes Percent Auto 17.3 % (18.3-44.2); Mean Corpuscular HGB Conc 32.9 g/dl (32-36); Mean Corpuscular Hemoglobin 29.6 pg (26-34); Mean Platelet Volume 10.9 fl (7.4-10.4); Monocytes Percent Auto 11.3 % (2.6-8.5); Neutrophils Absolute Auto 6.1 K/mm3 (1.3-6.7); Neutrophils Percent Auto 67.1 % (45.5-73.1); Platelet Count Result 266 k/mm3 (150-375); Red Cell Distribution Width 14.5 % (11.5-14.5)
--- NOTE | 2021-03-08 12:57 | PM.PNCARD ---
Progress Note: A&P Assessment and Plan (1) Atrial fibrillation with rapid ventricular response: Code(s): I48.91 - Unspecified atrial fibrillation Status: Acute Assessment and Plan: Patient, with apparent history of AFib, was found to have AFib RVR earlier this week. Continue diltiazem. Add p.r.n. metoprolol IV push and increase the frequency of metoprolol to 25 mg q.6 hours No evidence of CHF on exam Echocardiogram showed hyperdynamic left ventricular systolic function with an ejection fraction greater than 70%. She does have grade 2 diastolic dysfunction. (2) Hypertension: Code(s): I10 - Essential (primary) hypertension Status: Acute Assessment and Plan: Blood pressure at goal. (3) Back pain: Qualifiers: Back pain laterality: midline Back pain location: back pain in unspecified location Chronicity: acute Qualified Code(s): M54.9 - Dorsalgia, unspecified Code(s): M54.9 - Dorsalgia, unspecified Status: Deleted Assessment and Plan: Burst fracture of T11 (4) Confusion: Code(s): R41.0 - Disorientation, unspecified Status: Acute Assessment and Plan: Likely has some underlying dementia (5) Acute metabolic encephalopathy: Code(s): G93.41 - Metabolic encephalopathy Status: Acute Assessment and Plan: Possibly due to baclofen and [place] use during this hospitalization. Workup has been negative so far including head CT, brain MRI, UA, chest x-ray, blood cultures, absent min and pelvis CT. Management per primary service. Subjective Date/time seen: 03/08/21 12:57 Interval history: Follow-up visit in this 85-year-old lady with: Paroxysmal atrial fibrillation currently being treated with intravenous diltiazem and IV metoprolol with good rate control. Patient was on IV medication as she was up to 100 and unable to take any p.o. medications. Admitted to the hospital with a T11 fracture. Mental status presumably related to narcotics. This morning patient is doing well no longer encephalopathic and taking p.o. medication. No cardiovascular complaints Date of service 03/08/2021: She denies any chest pain or shortness of breath. Still in AFib. Review of Systems Review of Systems: ROS unobtainable: Yes unobtainable due to mental status (Patient is confused and only a limited review of systems is obtainable) Constitutional: Constitutional: Reports no additional constitutional complaints Eyes: Eyes: Reports no additional eye complaints ENT: Denies Normal hearing present Cardiovascular: Cardiovascular: Denies chest pain, Denies leg edema, Denies lightheadedness, Denies palpitations, Denies dyspnea and Denies dyspnea on exertion Respiratory: Respiratory: Denies dyspnea and Denies dyspnea on exertion Gastrointestinal: Gastrointestinal: Denies abdominal pain Genitourinary: Genitourinary: Denies hematuria Musculoskeletal: Musculoskeletal: Reports back pain Neurologic: Reports system reviewed and no additional complaints, except as documented, Denies Normal hearing present and Reports confusion Psychiatric: Psychiatric: Reports confusion Endocrine: Endocrine: Denies palpitations Exam Narrative: Elderly female fidgeting with her sheets, no distress supine Const: General: comfortable, no acute distress and confusion Orientation/consciousness: No patient oriented x3 and confusion Limitations: altered mental status HENMT: Head: normal to inspection General nose exam: no epistaxis Mouth: Yes moist mucous membranes Eyes: EOM: EOMs intact bilaterally Neck: Neck: supple Thyroid: thyroid normal Resp: Effort & Inspection: normal respiratory effort Auscultation: clear to auscultation bilaterally Cardio: Rate: tachycardic Rhythm: abnormal rhythm irregularly irregular Heart sounds: no murmurs GI: Inspection: non-distended Auscultation: normal bowel sounds Urinary Catheter: Urinary Catheter: pat
--- NOTE | 2021-03-08 13:43 | PCNSR ---
On 03/08/21, the student, Nina Florentino, provided care and completed [facility] documentation on this patient. I have reviewed the student's documentation and agree with the findings.
[2021-03-08] MEDS: POTASSIUM CHLORIDE 20 MEQ TABLET 40 MEQ PO (14:55)
--- NOTE | 2021-03-08 15:26 | PM.IMPN ---
Progress Note: A&P Assessment and Plan (1) Acute metabolic encephalopathy: Code(s): G93.41 - Metabolic encephalopathy Status: Acute Assessment and Plan: Resolving. Suspect multifactorial due to baclofen, [place], and UTI as well as hospital delirium. -head CT and brain MRI negative for acute pathology -urine culture growing E coli, will deescalate antibiotics -continue nightly Seroquel (2) UTI (urinary tract infection): Code(s): N39.0 - Urinary tract infection, site not specified Status: Acute Assessment and Plan: -Found on repeat UA and improved with imipenem -will deescalate antibiotics -Culture w/ E. Coli (3) Atrial fibrillation with rapid ventricular response: Code(s): I48.91 - Unspecified atrial fibrillation Status: Acute Assessment and Plan: Patient continues to an intermittently elevated heart rate currently 114 -she was unable to take her oral medications while obtunded -continue Cardizem and Eliquis -cardiology on board (4) T11 vertebral fracture: Qualifiers: Encounter type: initial encounter Fracture type: closed Fracture morphology: burst- stable Qualified Code(s): S22.081A - Stable burst fracture of T11-T12 vertebra, initial encounter for closed fracture Code(s): S22.089A - Unspecified fracture of T11-T12 vertebra, initial encounter for closed fracture Status: Acute Assessment and Plan: Likely the cause of her back pain, no spinal compression according to MRI -will avoid narcotic and muscle relaxing pain medications -continue Tylenol -TLSO brace per ortho -continue PT and OT and will have the patient get out of bed for every meal (5) Hypertension: Code(s): I10 - Essential (primary) hypertension Status: Acute Assessment and Plan: Last blood pressure 154/89 -continue losartan and diltiazem (6) Weakness: Code(s): R53.1 - Weakness Status: Acute Assessment and Plan: As above -PT and OT have been ordered, TLSO brace at bedside -Prefers to go home with therapy if she could rather than SNF placement (7) Erythrocytosis: Code(s): D75.1 - Secondary polycythemia Status: Acute Assessment and Plan: Noted on labs, no hx of this -Dr. Reece consulted -erythropoietin and JAK2 pending Subjective Date/time seen: 03/08/21 15:26 Interval history: Pt is a 85-year-old female here for vertebral fracture, afib and uti. Patient was seen today and is feeling much better. She says her back pain does not really hurt too much right now. She denies chest pain, shortness of breath, fevers, chills, nausea or vomiting. She has not eaten very much for lunch but can not tell me why. She is alert oriented x4 but also seems to talk to herself. Exam Narrative: General: Well developed well nourished patient in NAD, obese HEENT: normocephalic Neck: supple Neuro: Alert and oriented x4. Slightly confused but appropriate for the most part. Cranial nerves 2-12 intact. Equal strength the upper lower extremities 5/5 CV: Irregularly irregular. Telemetry shows AFib RVR with 114 Resp: Lungs CTA anteriorly, no wheezing Abd: Soft, non distended. No pain to palpation. Positive bowel sounds Extremities: No swelling, erythema, or pain to palpation. Objective Data Vital Signs Vital Signs: Vital Signs - 24 hr 03/07/21 16:00 03/07/21 16:43 03/07/21 18:00 Temperature 98.4 F Pulse Rate 100 91 91 Respiratory Rate 22 H Blood Pressure 128/64 Pulse Oximetry 97 03/07/21 20:00 03/07/21 20:33 03/07/21 22:00 Temperature 97.9 F Pulse Rate 104 H 106 H Respiratory Rate 18 Blood Pressure 134/81 Pulse Oximetry 96 98 03/08/21 00:00 03/08/21 02:00 03/08/21 04:00 Temperature 97.9 F Pulse Rate 99 104 H 64 Respiratory Rate 20 Blood Pressure 133/65 Pulse Oximetry 95 03/08/21 06:00 03/08/21 08:00 03/08/21 12:00
[2021-03-08] MEDS: ACETAMINOPHEN 325 MG TABLET 650 MG PO (16:23)
--- NOTE | 2021-03-08 18:41 | PC.NURSE ---
This patient, Frank Barrera, was transferred to [[id number] ] on 03/08/21 at 1830. Personal belongings sent with patient. Report given to [JOSE Bocanegra @ [phone]]. Appropriate documentation sent with patient.
--- NOTE | 2021-03-08 19:21 | PC.NURSE ---
This patient, Frank Barrera, was received from [imu ] on 03/08/21 at 1921. Patient/family oriented to unit policies and routines
[2021-03-08] MEDS: QUEtiapine FUMARATE 25 MG TABLET PO (19:42)
--- NOTE | 2021-03-08 22:42 | PCRCNOTE ---
Window of time for administration has passed. See next scheduled administration.
[2021-03-09] VITALS (11 sets, daily range): BP systolic 142–151; BP diastolic 65–74; PULSE 89–130; RESP 16–17; TEMP 36.6–36.7; O2SAT 94–97
[2021-03-09] MEDS: METOPROLOL TARTRATE INJ 5 MG/5 ML VIAL IV PUSH ×3 (02:59→18:24)
[2021-03-09 07:01] LABS: Hematocrit 51.9 % (37.0-47.0); Hemoglobin 17.1 g/dL (12.0-15.0); Mean Corpuscular HGB Conc 32.9 g/dl (32-36); Mean Corpuscular Hemoglobin 28.9 pg (26-34); Mean Corpuscular Volume 87.7 fl (80-100); Mean Platelet Volume 11.1 fl (7.4-10.4); Platelet Count Result 229 k/mm3 (150-375); Red Blood Count 5.92 M/mm3 (4.2-5.4); Red Cell Distribution Width 14.2 % (11.5-14.5); White Blood Count 15.8 K/mm3 (4.5-10.0)
[2021-03-09 07:31] LABS: Anion Gap 10 mmol/L (8-16); Blood Urea Nitrogen 12 mg/dL (7-17); Calcium 9.7 mg/dL (8.4-10.2); Carbon Dioxide 25 mmol/L (22-30); Chloride 100 mmol/L (98-107); Estimated CRCL calculation 43 ml/min; Estimated Glomerular Filt Rate > 60; Glucose 98 mg/dL (65-110); Magnesium 1.7 mg/dL (1.6-2.3); Potassium 3.9 mmol/L (3.4-5.0); Sodium 135 mmol/L (137-145)
[2021-03-09 07:42] LABS: CRP 12.2 mg/dL (<1.0)
[2021-03-09] MEDS: LOSARTAN POTASSIUM 50 MG TABLET PO (08:58)
[2021-03-09] MEDS: FUROSEMIDE 20 MG TABLET PO (08:58)
[2021-03-09] MEDS: APIXABAN 5 MG TABLET PO ×2 (08:58→16:50)
--- NOTE | 2021-03-09 09:26 | PM.PNCARD ---
Progress Note: A&P Assessment and Plan (1) Atrial fibrillation with rapid ventricular response: Code(s): I48.91 - Unspecified atrial fibrillation Status: Acute Assessment and Plan: Patient, with apparent history of AFib, was found to have AFib RVR earlier this week. Reasonably controlled with current regimen. Continue diltiazem. Continue metoprolol 25 mg q.6 hours PRN metoprolol IV push for tachycardia Continue apixaban for systemic a/c No evidence of CHF on exam Echocardiogram showed hyperdynamic left ventricular systolic function with an ejection fraction greater than 70%. She does have grade 2 diastolic dysfunction. (2) Hypertension: Code(s): I10 - Essential (primary) hypertension Status: Acute Assessment and Plan: Blood pressure at goal. (3) Back pain: Qualifiers: Back pain laterality: midline Back pain location: back pain in unspecified location Chronicity: acute Qualified Code(s): M54.9 - Dorsalgia, unspecified Code(s): M54.9 - Dorsalgia, unspecified Status: Deleted Assessment and Plan: Burst fracture of T11 (4) Confusion: Code(s): R41.0 - Disorientation, unspecified Status: Acute Assessment and Plan: Likely has some underlying dementia (5) Acute metabolic encephalopathy: Code(s): G93.41 - Metabolic encephalopathy Status: Acute Assessment and Plan: This has improved significantly. Presumably due to baclofen and [place] use during this hospitalization. Management per primary service. Subjective Date/time seen: 03/09/21 09:26 Interval history: Follow-up visit in this 85-year-old lady with: Paroxysmal atrial fibrillation currently being treated with intravenous diltiazem and IV metoprolol with good rate control. Patient was on IV medication as she was up to 100 and unable to take any p.o. medications. Admitted to the hospital with a T11 fracture. Mental status presumably related to narcotics. This morning patient is doing well no longer encephalopathic and taking p.o. medication. No cardiovascular complaints Date of service 03/08/2021: She denies any chest pain or shortness of breath. Still in AFib. Date of service 03/09/2021: Complaining of some back pain but denies shortness of breath, palpitations, chest pain. Remains in Afib that is generally rate controlled with some breakthrough tachycardia. Review of Systems Review of Systems: ROS unobtainable: Yes unobtainable due to mental status (Patient is confused and only a limited review of systems is obtainable) Constitutional: Constitutional: Reports no additional constitutional complaints Eyes: Eyes: Reports no additional eye complaints ENT: Denies Normal hearing present Cardiovascular: Cardiovascular: Denies chest pain, Denies leg edema, Denies lightheadedness, Denies palpitations, Denies dyspnea and Denies dyspnea on exertion Respiratory: Respiratory: Denies dyspnea and Denies dyspnea on exertion Gastrointestinal: Gastrointestinal: Denies abdominal pain Genitourinary: Genitourinary: Denies hematuria Musculoskeletal: Musculoskeletal: Reports back pain Neurologic: Reports system reviewed and no additional complaints, except as documented, Denies Normal hearing present and Reports confusion Psychiatric: Psychiatric: Reports confusion Endocrine: Endocrine: Denies palpitations Exam Narrative: Elderly female lying supine. Alert and oriented. Const: General: comfortable and no acute distress Orientation/consciousness: patient oriented x3 and No confusion HENMT: Head: normal to inspection General nose exam: no epistaxis Mouth: Yes moist mucous membranes Eyes: General: appearance normal, both eyes and all related structures EOM: EOMs intact bilaterally Neck: Neck: supple Thyroid: thyroid normal Resp: Effort & Inspection: normal respiratory effort Auscultation: clear to auscultation bilaterally Cardio: Rate
--- NOTE | 2021-03-09 11:16 | PM.IMPN ---
Progress Note: A&P Assessment and Plan (1) Acute metabolic encephalopathy: Code(s): G93.41 - Metabolic encephalopathy Status: Acute Assessment and Plan: Resolving. Suspect multifactorial due to baclofen, [place], and UTI as well as hospital delirium. -head CT and brain MRI negative for acute pathology -urine culture growing E coli, now on bactrim -continue nightly Seroquel -plan discussed with family at bedside (2) UTI (urinary tract infection): Code(s): N39.0 - Urinary tract infection, site not specified Status: Acute Assessment and Plan: -Found on repeat UA and improved with abx -continue bactrim -Culture w/ E. Coli (3) Atrial fibrillation with rapid ventricular response: Code(s): I48.91 - Unspecified atrial fibrillation Status: Acute Assessment and Plan: Patient continues to an intermittently elevated heart rate but is currently at 89 -continue Cardizem and Eliquis -cardiology on board (4) T11 vertebral fracture: Qualifiers: Encounter type: initial encounter Fracture type: closed Fracture morphology: burst- stable Qualified Code(s): S22.081A - Stable burst fracture of T11-T12 vertebra, initial encounter for closed fracture Code(s): S22.089A - Unspecified fracture of T11-T12 vertebra, initial encounter for closed fracture Status: Acute Assessment and Plan: Likely the cause of her back pain, no spinal compression according to MRI -will avoid narcotic and muscle relaxing pain medications -continue Tylenol -TLSO brace per ortho -continue PT and OT and will have the patient get out of bed for every meal (5) Hypertension: Code(s): I10 - Essential (primary) hypertension Status: Acute Assessment and Plan: Last blood pressure 142/65 -continue losartan and diltiazem (6) Weakness: Code(s): R53.1 - Weakness Status: Acute Assessment and Plan: As above -PT and OT have been ordered, TLSO brace at bedside -Prefers to go home with therapy if she could rather than SNF placement (7) Erythrocytosis: Code(s): D75.1 - Secondary polycythemia Status: Acute Assessment and Plan: Noted on labs, no hx of this -Dr. Reece consulted -erythropoietin and JAK2 pending Additional Plan leukocytosis noted today but pt has clinical improvement with improvement with CRP. Will monitor. Subjective Date/time seen: 03/09/21 11:16 Interval history: Pt is a 85-year-old female here for vertebral fracture, afib and uti. Patient was seen today and is feeling much better. She says her back pain is controlled with tylneol She denies chest pain, shortness of breath, fevers, chills, nausea or vomiting. Her appetite is better. Family at bedside Exam Narrative: General: Well developed well nourished patient in NAD, obese HEENT: normocephalic Neck: supple Neuro: Alert and oriented x4. Cranial nerves 2-12 intact. Equal strength the upper lower extremities 5/5 CV: Irregularly irregular. Telemetry shows AFib RVR with hr 89 Resp: Lungs CTA anteriorly, no wheezing Abd: Soft, non distended. No pain to palpation. Positive bowel sounds Extremities: No swelling, erythema, or pain to palpation. Objective Data Vital Signs Vital Signs: Vital Signs - 24 hr 03/08/21 12:00 03/08/21 16:00 03/08/21 16:53 Temperature 98.5 F 97.9 F 97.9 F Pulse Rate 118 H 102 H 96 Respiratory Rate 20 14 14 Blood Pressure 154/89 H 149/70 H 149/70 H Pulse Oximetry 98 95 96 03/08/21 19:14 03/08/21 20:00 03/09/21 00:00 Temperature 98.2 F Pulse Rate 107 H 113 H 114 H Respiratory Rate 20 20 Blood Pressure 161/72 H Pulse Oximetry 96 96 03/09/21 02:59 03/09/21 03:08 03/09/21 04:00 Temperature 97.8 F Pulse Rate 130 H 91 96 Respiratory Rate 17 Blood Pressure 142/65 H Pulse Oximetry 94 03/09/21 07:50 03/09/21 08:00 03/09/21 08:58 Temperature
[2021-03-09 12:37] LABS: Basophils Absolute Auto 0.1 K/mm3 (0.0-0.1); Basophils Percent Auto 0.7 % (0.2-1.2); Eosinophils Absolute Auto 0.1 K/mm3 (0-0.3); Eosinophils Percent Auto 0.7 % (0-4.4); Hematocrit 46.6 % (37.0-47.0); Hemoglobin 15.8 g/dL (12.0-15.0); Immature Granulocyte Absolute 0.08 K/mm3 (0.00-0.031); Immature Granulocyte Percent A 0.6 % (0-0.5); Lymphocytes Absolute Auto 0.92 K/mm3 (0.9-3.2); Lymphocytes Percent Auto 6.7 % (18.3-44.2); Mean Corpuscular HGB Conc 33.9 g/dl (32-36); Mean Corpuscular Hemoglobin 29.3 pg (26-34); Mean Corpuscular Volume 86.5 fl (80-100); Mean Platelet Volume 11.2 fl (7.4-10.4); Monocytes Absolute Auto 0.5 K/mm3 (0.1-0.6); Monocytes Percent Auto 3.4 % (2.6-8.5); Neutrophils Absolute Auto 12.1 K/mm3 (1.3-6.7); Neutrophils Percent Auto 87.9 % (45.5-73.1); Platelet Count Result 297 k/mm3 (150-375); Red Blood Count 5.39 M/mm3 (4.2-5.4); Red Cell Distribution Width 14.2 % (11.5-14.5); White Blood Count 13.7 K/mm3 (4.5-10.0)
--- NOTE | 2021-03-09 15:04 | PCPTNOTE ---
Attempted to see patient for PT at this time, however patient refused due to just working with OT prior to PT. Encouraged patient to participate, patient continued to refuse and stated not today.
[2021-03-09] MEDS: QUEtiapine FUMARATE 25 MG TABLET PO (20:52)
[2021-03-09 21:06] LABS: Erythropoietin (EPO) 10.9 mIU/mL (2.6-18.5)
[2021-03-10] VITALS (10 sets, daily range): BP systolic 120–135; BP diastolic 67–89; PULSE 66–105; RESP 16–20; TEMP 36.4–36.7; O2SAT 95–96
[2021-03-10 05:48] LABS: Basophils Absolute Auto 0.1 K/mm3 (0.0-0.1); Basophils Percent Auto 1.1 % (0.2-1.2); Eosinophils Absolute Auto 0.3 K/mm3 (0-0.3); Eosinophils Percent Auto 2.5 % (0-4.4); Hemoglobin 15.8 g/dL (12.0-15.0); Immature Granulocyte Absolute 0.08 K/mm3 (0.00-0.031); Immature Granulocyte Percent A 0.8 % (0-0.5); Lymphocytes Absolute Auto 1.48 K/mm3 (0.9-3.2); Lymphocytes Percent Auto 14.3 % (18.3-44.2); Mean Corpuscular HGB Conc 32.9 g/dl (32-36); Mean Corpuscular Hemoglobin 29.3 pg (26-34); Mean Corpuscular Volume 88.9 fl (80-100); Mean Platelet Volume 10.6 fl (7.4-10.4); Monocytes Absolute Auto 0.8 K/mm3 (0.1-0.6); Monocytes Percent Auto 7.9 % (2.6-8.5); Neutrophils Absolute Auto 7.6 K/mm3 (1.3-6.7); Neutrophils Percent Auto 73.4 % (45.5-73.1); Platelet Count Result 242 k/mm3 (150-375); Red Cell Distribution Width 14.5 % (11.5-14.5); White Blood Count 10.4 K/mm3 (4.5-10.0)
[2021-03-10 06:54] LABS: Anion Gap 11 mmol/L (8-16); Blood Urea Nitrogen 15 mg/dL (7-17); Carbon Dioxide 24 mmol/L (22-30); Chloride 98 mmol/L (98-107); Estimated CRCL calculation 43 ml/min; Estimated Glomerular Filt Rate > 60; Glucose 106 mg/dL (65-110); Potassium 3.7 mmol/L (3.4-5.0); Sodium 133 mmol/L (137-145)
[2021-03-10] MEDS: APIXABAN 5 MG TABLET PO ×2 (09:37→16:19)
[2021-03-10] MEDS: LOSARTAN POTASSIUM 50 MG TABLET PO (09:37)
[2021-03-10] MEDS: FUROSEMIDE 20 MG TABLET PO (09:37)
--- NOTE | 2021-03-10 10:08 | PM.PNCARD ---
Progress Note: A&P Assessment and Plan (1) Atrial fibrillation with rapid ventricular response: Code(s): I48.91 - Unspecified atrial fibrillation Status: Acute Assessment and Plan: Patient, with apparent history of AFib, was found to have AFib RVR earlier this week. Reasonably controlled with current regimen. Will continue oral diltiazem for rate control. Will give 1 dose of metoprolol 25 mg p.o. x1. Continue apixaban for systemic a/c No evidence of CHF on exam Echocardiogram showed hyperdynamic left ventricular systolic function with an ejection fraction greater than 70%. She does have grade 2 diastolic dysfunction. (2) Hypertension: Code(s): I10 - Essential (primary) hypertension Status: Acute Assessment and Plan: Blood pressure at goal. (3) Back pain: Qualifiers: Back pain laterality: midline Back pain location: back pain in unspecified location Chronicity: acute Qualified Code(s): M54.9 - Dorsalgia, unspecified Code(s): M54.9 - Dorsalgia, unspecified Status: Deleted Assessment and Plan: Burst fracture of T11 (4) Confusion: Code(s): R41.0 - Disorientation, unspecified Status: Acute Assessment and Plan: Likely has some underlying dementia (5) Acute metabolic encephalopathy: Code(s): G93.41 - Metabolic encephalopathy Status: Acute Assessment and Plan: This has improved significantly. Presumably due to baclofen and [place] use during this hospitalization. Management per primary service. Subjective Date/time seen: 03/10/21 10:08 Interval history: Follow-up visit in this 85-year-old lady with: Paroxysmal atrial fibrillation currently being treated with intravenous diltiazem and IV metoprolol with good rate control. Patient was on IV medication as she was up to 100 and unable to take any p.o. medications. Admitted to the hospital with a T11 fracture. Mental status presumably related to narcotics. This morning patient is doing well no longer encephalopathic and taking p.o. medication. No cardiovascular complaints Date of service 03/08/2021: She denies any chest pain or shortness of breath. Still in AFib. Date of service 03/09/2021: Complaining of some back pain but denies shortness of breath, palpitations, chest pain. Remains in Afib that is generally rate controlled with some breakthrough tachycardia. Date of service 03/10/2021: Much more awake alert today. Feels okay. No chest pain or shortness of breath. Review of Systems Review of Systems: ROS unobtainable: Yes unobtainable due to mental status (Patient is confused and only a limited review of systems is obtainable) Constitutional: Constitutional: Reports no additional constitutional complaints Eyes: Eyes: Reports no additional eye complaints ENT: Denies Normal hearing present Cardiovascular: Cardiovascular: Denies chest pain, Denies leg edema, Denies lightheadedness, Denies palpitations, Denies dyspnea and Denies dyspnea on exertion Respiratory: Respiratory: Denies dyspnea and Denies dyspnea on exertion Gastrointestinal: Gastrointestinal: Denies abdominal pain Genitourinary: Genitourinary: Denies hematuria Musculoskeletal: Musculoskeletal: Reports back pain Neurologic: Reports system reviewed and no additional complaints, except as documented, Denies Normal hearing present and Denies confusion Psychiatric: Psychiatric: Denies confusion Endocrine: Endocrine: Denies palpitations Exam Narrative: Elderly female lying supine. Alert and oriented. Const: General: comfortable and no acute distress; No confusion Orientation/consciousness: patient oriented x3 and No confusion Limitations: altered mental status HENMT: Head: normal to inspection General nose exam: no epistaxis Mouth: Yes moist mucous membranes Eyes: General: appearance normal, both eyes and all related structures EOM: EOMs intact bilaterally Neck: N
[2021-03-10] MEDS: METOPROLOL TARTRATE 25 MG TABLET PO (11:57)
--- NOTE | 2021-03-10 13:48 | PCRCNOTE ---
Past window to treatment time.
[2021-03-10] MEDS: ACETAMINOPHEN 325 MG TABLET 650 MG PO (14:04)
[2021-03-10] MEDS: LACTATED RINGERS 1,000 ML 100 ML IV CONT (17:18)
--- NOTE | 2021-03-10 17:38 | PM.IMPN ---
Progress Note: A&P Assessment and Plan (1) Acute metabolic encephalopathy: Code(s): G93.41 - Metabolic encephalopathy Status: Acute Assessment and Plan: Resolved. Suspect multifactorial due to baclofen, [place], and UTI as well as hospital delirium. -head CT and brain MRI negative for acute pathology -urine culture growing E coli, now on bactrim -continue nightly Seroquel -Pt appears dry on exam. I have asked her to drink more water. She hasn't had much UOP so I am going to start fluids and recheck her fluid status in the morning. (2) UTI (urinary tract infection): Code(s): N39.0 - Urinary tract infection, site not specified Status: Acute Assessment and Plan: -Found on repeat UA and improved with abx -continue bactrim -Culture w/ E. Coli (3) Atrial fibrillation with rapid ventricular response: Code(s): I48.91 - Unspecified atrial fibrillation Status: Acute Assessment and Plan: Patient continues to an intermittently elevated heart rate but is currently at 74 -continue Cardizem and Eliquis -cardiology on board (4) T11 vertebral fracture: Qualifiers: Encounter type: initial encounter Fracture type: closed Fracture morphology: burst- stable Qualified Code(s): S22.081A - Stable burst fracture of T11-T12 vertebra, initial encounter for closed fracture Code(s): S22.089A - Unspecified fracture of T11-T12 vertebra, initial encounter for closed fracture Status: Acute Assessment and Plan: Likely the cause of her back pain, no spinal compression according to MRI -will avoid narcotic and muscle relaxing pain medications -continue Tylenol -TLSO brace per ortho -continue PT and OT and will have the patient get out of bed for every meal. She was able to sit on the side of the bed today but couldn't do much more. Will likely need SNF or ARF (5) Hypertension: Code(s): I10 - Essential (primary) hypertension Status: Acute Assessment and Plan: Last blood pressure 129/87 -continue losartan and diltiazem (6) Weakness: Code(s): R53.1 - Weakness Status: Acute Assessment and Plan: As above -PT and OT have been ordered, TLSO brace at bedside -as above (7) Erythrocytosis: Code(s): D75.1 - Secondary polycythemia Status: Acute Assessment and Plan: Noted on labs, no hx of this -Dr. Reece consulted -erythropoietin and JAK2 pending Additional Plan No BM charted since being here. Will schedule miralax and senna. May need further medications if she does not have one soon. Subjective Date/time seen: 03/10/21 17:38 Interval history: Pt is a 85-year-old female here for vertebral fracture, afib and uti. Patient was seen today and is feeling much better. She says her back pain is controlled with Tylenol at rest but it is worse when she gets up. She could not get up and walk today due to weakness and pain but did sit on the side of the bed. She hasn't been drinking much or urinating much. She is unsure when her last bm was. She denies chest pain, shortness of breath, fevers, chills, nausea or vomiting. Her appetite is better. Exam Narrative: General: Well developed well nourished patient in NAD, obese HEENT: normocephalic, dry mucus membranes Neck: supple Neuro: Alert and oriented x4. Cranial nerves 2-12 intact. Equal strength the upper lower extremities 5/5 CV: Irregularly irregular. Telemetry shows AFib RVR with hr 74 Resp: Lungs CTA anteriorly, no wheezing Abd: Soft, non distended. No pain to palpation. Positive bowel sounds Extremities: No swelling, erythema, or pain to palpation. Objective Data Vital Signs Vital Signs: Vital Signs - 24 hr 03/09/21 18:24 03/09/21 20:00 03/10/21 00:00 Temperature Pulse Rate 121 H 111 H 104 H Respiratory Rate Blood Pressure Pulse Oximetry 03/10/21 04:00 03/10/21 05:30
[2021-03-10 18:12] LABS: CALR Exon 9 Mutation Not Detected (Not Detected); CSF3R Exon 14/17 Mutation Not Detected (Not Detected); Clinical Indication Not Given; JAK2 Exon 12 Mutation Not Detected (Not Detected); JAK2 V617F Mutation Not Detected (Not Detected); MPL Exon 10 Mutation Not Detected (Not Detected); Specimen Source Blood
[2021-03-10] MEDS: SENNOSIDES 8.6 MG TABLET PO (20:07)
[2021-03-10] MEDS: QUEtiapine FUMARATE 25 MG TABLET PO (20:07)
[2021-03-11] VITALS (10 sets, daily range): BP systolic 119–147; BP diastolic 54–79; PULSE 97–129; RESP 16–18; TEMP 35.8–36.6; O2SAT 91–95; BMI 10.0
[2021-03-11 05:52] LABS: Hematocrit 46.2 % (37.0-47.0); Hemoglobin 15.5 g/dL (12.0-15.0); Mean Corpuscular HGB Conc 33.5 g/dl (32-36); Mean Corpuscular Hemoglobin 29.2 pg (26-34); Mean Platelet Volume 10.4 fl (7.4-10.4); Platelet Count Result 276 k/mm3 (150-375); Red Blood Count 5.31 M/mm3 (4.2-5.4); Red Cell Distribution Width 14.1 % (11.5-14.5)
[2021-03-11] MEDS: LACTATED RINGERS 1,000 ML 100 ML IV CONT (06:03)
[2021-03-11 06:10] LABS: Alanine Aminotransferase 18 U/L (4-35); Albumin Level 3.3 g/dL (3.5-5.1); Alkaline Phosphatase 79 U/L (38-126); Anion Gap 9 mmol/L (8-16); Aspartate Amino Transferase 28 U/L (14-36); Bilirubin,Total 0.5 mg/dL (0.2-1.3); Blood Urea Nitrogen 14 mg/dL (7-17); CRP 6.2 mg/dL (<1.0); Calcium 9.6 mg/dL (8.4-10.2); Carbon Dioxide 26 mmol/L (22-30); Chloride 99 mmol/L (98-107); Estimated CRCL calculation 35 ml/min; Estimated Glomerular Filt Rate 53; Glucose 95 mg/dL (65-110); Potassium 3.7 mmol/L (3.4-5.0); Sodium 134 mmol/L (137-145)
[2021-03-11] MEDS: APIXABAN 5 MG TABLET PO ×2 (08:25→16:41)
[2021-03-11] MEDS: polyethylene glycoL 3350 17 GM POWD.PACK PO (08:25)
[2021-03-11] MEDS: LOSARTAN POTASSIUM 50 MG TABLET PO (08:25)
--- NOTE | 2021-03-11 12:17 | PM.PNCARD ---
Progress Note: A&P Assessment and Plan (1) Atrial fibrillation with rapid ventricular response: Code(s): I48.91 - Unspecified atrial fibrillation Status: Acute Assessment and Plan: Patient, with apparent history of AFib, was found to have AFib RVR earlier this week. Will continue Diltiazem 300mg p.o. daily. Metoprolol IV push PRN for sustained HR >130 Continue apixaban for systemic a/c No evidence of CHF on exam Echocardiogram showed hyperdynamic left ventricular systolic function with an ejection fraction greater than 70%. She does have grade 2 diastolic dysfunction. (2) Hypertension: Code(s): I10 - Essential (primary) hypertension Status: Acute Assessment and Plan: Blood pressure at goal. (3) Back pain: Qualifiers: Back pain laterality: midline Back pain location: back pain in unspecified location Chronicity: acute Qualified Code(s): M54.9 - Dorsalgia, unspecified Code(s): M54.9 - Dorsalgia, unspecified Status: Deleted Assessment and Plan: Burst fracture of T11 (4) Confusion: Code(s): R41.0 - Disorientation, unspecified Status: Acute Assessment and Plan: Likely has some underlying dementia (5) Acute metabolic encephalopathy: Code(s): G93.41 - Metabolic encephalopathy Status: Acute Assessment and Plan: This has improved significantly. Presumably due to baclofen and [place] use during this hospitalization. Management per primary service. Subjective Date/time seen: 03/11/21 12:17 Interval history: Follow-up visit in this 85-year-old lady with: Paroxysmal atrial fibrillation currently being treated with intravenous diltiazem and IV metoprolol with good rate control. Patient was on IV medication as she was up to 100 and unable to take any p.o. medications. Admitted to the hospital with a T11 fracture. Mental status presumably related to narcotics. This morning patient is doing well no longer encephalopathic and taking p.o. medication. No cardiovascular complaints Date of service 03/08/2021: She denies any chest pain or shortness of breath. Still in AFib. Date of service 03/09/2021: Complaining of some back pain but denies shortness of breath, palpitations, chest pain. Remains in Afib that is generally rate controlled with some breakthrough tachycardia. Date of service 03/10/2021: Much more awake alert today. Feels okay. No chest pain or shortness of breath. Date of service 03/11/2021: She says that she is not feeling as well today as she was yesterday. Complaining of back pain. She denies any chest pain but does endorse shortness of breath if she lies flat. Still in AFib mostly rate controlled but was tachycardic this morning before taking her morning meds. Review of Systems Review of Systems: ROS unobtainable: Yes unobtainable due to mental status (Patient is confused and only a limited review of systems is obtainable) Constitutional: Constitutional: Reports no additional constitutional complaints Eyes: Eyes: Reports no additional eye complaints ENT: Denies Normal hearing present Cardiovascular: Cardiovascular: Denies chest pain, Denies leg edema, Denies lightheadedness, Denies palpitations, Denies dyspnea and Denies dyspnea on exertion Respiratory: Respiratory: Denies dyspnea and Denies dyspnea on exertion Gastrointestinal: Gastrointestinal: Denies abdominal pain Genitourinary: Genitourinary: Denies hematuria Musculoskeletal: Musculoskeletal: Reports back pain Neurologic: Reports system reviewed and no additional complaints, except as documented, Denies Normal hearing present and Denies confusion Psychiatric: Psychiatric: Denies confusion Endocrine: Endocrine: Denies palpitations Exam Narrative: Elderly female lying supine. Alert and oriented. Const: General: comfortable, no acute distress and confusion HENMT: Head: normal to inspection Mouth: Yes moist mu
--- NOTE | 2021-03-11 14:52 | PM.IMPN ---
Progress Note: A&P Assessment and Plan (1) Acute metabolic encephalopathy: Code(s): G93.41 - Metabolic encephalopathy Status: Acute Assessment and Plan: Suspect multifactorial due to baclofen, [place], and UTI as well as hospital delirium. -head CT and brain MRI negative for acute pathology -urine culture growing E coli, continue bactrim -continue nightly Seroquel -Pt appears dry on exam. Encouraged oral fluids. Started LR 100/hr overnight due to low urine output -On exam today had mild distention w/ abd pain, ordered bladder scan which showed >1000cc -Velez placed -CT abd/pelv shows distended bladder w/ velez in expected position. Stable subacute T11 burst fx. Mild chronic interstitial lung disease. And cirrhosis of the liver. Spoke w/ radiologist regarding cirrhosis finding which is new when compared to 03/04/21 CT abd/pelv. He states this was also seen on that scan but was borderline so not noted. He states this is a very mild borderline finding. Pt has no hx of etoh use. Ammonia level WNL. (2) UTI (urinary tract infection): Code(s): N39.0 - Urinary tract infection, site not specified Status: Acute Assessment and Plan: -Found on repeat UA and improved with abx -continue bactrim IV -Culture w/ E. Coli sensitive to bactrim (3) Atrial fibrillation with rapid ventricular response: Code(s): I48.91 - Unspecified atrial fibrillation Status: Acute Assessment and Plan: Patient continues to have an intermittently elevated heart rate -continue Cardizem and Eliquis -acute elevation in HR today secondary to urinary retention?? -cardiology following, appreciate recommendations regarding medication adjustments (4) T11 vertebral fracture: Qualifiers: Encounter type: initial encounter Fracture morphology: burst- stable Fracture type: closed Qualified Code(s): S22.081A - Stable burst fracture of T11-T12 vertebra, initial encounter for closed fracture Code(s): S22.089A - Unspecified fracture of T11-T12 vertebra, initial encounter for closed fracture Status: Acute Assessment and Plan: Likely the cause of her back pain, no spinal compression according to MRI -will avoid narcotic and muscle relaxing pain medications -continue Tylenol -TLSO brace per ortho -continue PT and OT and will have the patient get out of bed for every meal. Will likely need SNF or ARF (5) Hypertension: Code(s): I10 - Essential (primary) hypertension Status: Acute Assessment and Plan: stable -continue losartan and diltiazem (6) Weakness: Code(s): R53.1 - Weakness Status: Acute Assessment and Plan: As above -PT and OT have been ordered, TLSO brace at bedside (7) Erythrocytosis: Code(s): D75.1 - Secondary polycythemia Status: Acute Assessment and Plan: Noted on labs, no hx of this -Dr. Reece consulted -erythropoietin and JAK2 pending Subjective Date/time seen: 03/11/21 14:52 Interval history: 85-year-old female with a past medical history of atrial fibrillation, back pain requiring injections, breast cancer, hyperlipidemia and hypertension, admitted for vertebral burst fracture and subsequently became obtunded during admission which was attributed to UTI, narcotic/muscle relaxants, and hospital delirium. Today patient is A/Ox4 but confused, confabulating, and possibly hallucinating. She is not in any distress. She reports abdominal pain and urinary incontinence. Further hx limited secondary to mental status. Review of Systems Review of Systems: ROS unobtainable: Yes unobtainable due to mental status Exam Narrative: General: Well developed well nourished patient in NAD, obese HEENT: normocephalic, dry mucus membranes Neck: supple Neuro: Alert and oriented x4 but confused. Cranial nerves 2-12 intact. Does not answer questions appropriately. Follows some
[2021-03-11] MEDS: SENNOSIDES 8.6 MG TABLET PO (20:30)
[2021-03-11] MEDS: QUEtiapine FUMARATE 25 MG TABLET PO (20:30)
[2021-03-12] VITALS (9 sets, daily range): BP systolic 120–143; BP diastolic 70–90; PULSE 90–119; RESP 16–18; TEMP 36.1–36.5; O2SAT 93–98; BMI 10.0
[2021-03-12 05:31] LABS: Basophils Absolute Auto 0.1 K/mm3 (0.0-0.1); Eosinophils Absolute Auto 0.3 K/mm3 (0-0.3); Eosinophils Percent Auto 3.4 % (0-4.4); Hematocrit 41.5 % (37.0-47.0); Hemoglobin 14.1 g/dL (12.0-15.0); Immature Granulocyte Absolute 0.09 K/mm3 (0.00-0.031); Lymphocytes Absolute Auto 1.34 K/mm3 (0.9-3.2); Mean Corpuscular Hemoglobin 29.7 pg (26-34); Mean Corpuscular Volume 87.4 fl (80-100); Mean Platelet Volume 10.5 fl (7.4-10.4); Monocytes Absolute Auto 1.2 K/mm3 (0.1-0.6); Neutrophils Absolute Auto 5.9 K/mm3 (1.3-6.7); Neutrophils Percent Auto 66.6 % (45.5-73.1); Platelet Count Result 264 k/mm3 (150-375); Red Blood Count 4.75 M/mm3 (4.2-5.4); Red Cell Distribution Width 13.8 % (11.5-14.5); White Blood Count 8.9 K/mm3 (4.5-10.0)
[2021-03-12 05:40] LABS: INR 1.4; Prothrombin Time 16.9 Seconds (11.1-14.7)
[2021-03-12 05:42] LABS: Partial Thromboplastin Time 44.5 SECONDS (22.3-36.8)
[2021-03-12 05:46] LABS: Alanine Aminotransferase 17 U/L (4-35); Albumin Level 3.1 g/dL (3.5-5.1); Alkaline Phosphatase 74 U/L (38-126); Anion Gap 6 mmol/L (8-16); Aspartate Amino Transferase 29 U/L (14-36); Bilirubin,Total 0.6 mg/dL (0.2-1.3); Blood Urea Nitrogen 10 mg/dL (7-17); Calcium 9.7 mg/dL (8.4-10.2); Carbon Dioxide 28 mmol/L (22-30); Chloride 102 mmol/L (98-107); Estimated CRCL calculation 43 ml/min; Estimated Glomerular Filt Rate > 60; Glucose 100 mg/dL (65-110); Potassium 3.6 mmol/L (3.4-5.0); Sodium 136 mmol/L (137-145)
[2021-03-12 05:47] LABS: Ammonia < 9 umol/L (9-30)
[2021-03-12] MEDS: LOSARTAN POTASSIUM 50 MG TABLET PO (09:32)
[2021-03-12] MEDS: APIXABAN 5 MG TABLET PO ×2 (09:32→16:57)
[2021-03-12] MEDS: polyethylene glycoL 3350 17 GM POWD.PACK PO (09:32)
--- NOTE | 2021-03-12 11:22 | PCNFU ---
Nutrition Follow-Up Complete: Inadequate Oral Intake as related to poor appetite as evidenced by po intake reported and weight loss of 15 ibs in the past 3 months. Goal: Adequate Intake of at least 75% of meals/supplements Pt current nutrition is . Nutrition recommendation: Last recorded weight is 78.3 kg. Bowel Motility: Labs Reviewed: Meds Noted: Skin: Additional Notes: RD will monitor every 5 days.
--- NOTE | 2021-03-12 11:36 | PM.PNCARD ---
Progress Note: A&P Assessment and Plan (1) Atrial fibrillation with rapid ventricular response: Code(s): I48.91 - Unspecified atrial fibrillation Status: Acute Assessment and Plan: Patient, with apparent history of AFib, was found to have AFib RVR earlier this week. Will continue Diltiazem 300mg p.o. daily. Metoprolol IV push PRN for sustained HR >130 Continue apixaban for systemic a/c No evidence of CHF on exam Echocardiogram showed hyperdynamic left ventricular systolic function with an ejection fraction greater than 70%. She does have grade 2 diastolic dysfunction. (2) Hypertension: Code(s): I10 - Essential (primary) hypertension Status: Acute Assessment and Plan: Blood pressure at goal. (3) Back pain: Qualifiers: Back pain laterality: midline Back pain location: back pain in unspecified location Chronicity: acute Qualified Code(s): M54.9 - Dorsalgia, unspecified Code(s): M54.9 - Dorsalgia, unspecified Status: Deleted Assessment and Plan: Burst fracture of T11 (4) Confusion: Code(s): R41.0 - Disorientation, unspecified Status: Acute Assessment and Plan: Likely has some underlying dementia (5) Acute metabolic encephalopathy: Code(s): G93.41 - Metabolic encephalopathy Status: Acute Assessment and Plan: This has improved significantly. Presumably due to baclofen and [place] use during this hospitalization. Management per primary service. Subjective Date/time seen: 03/12/21 11:36 Interval history: Follow-up visit in this 85-year-old lady with: Paroxysmal atrial fibrillation currently being treated with intravenous diltiazem and IV metoprolol with good rate control. Patient was on IV medication as she was up to 100 and unable to take any p.o. medications. Admitted to the hospital with a T11 fracture. Mental status presumably related to narcotics. This morning patient is doing well no longer encephalopathic and taking p.o. medication. No cardiovascular complaints Date of service 03/08/2021: She denies any chest pain or shortness of breath. Still in AFib. Date of service 03/09/2021: Complaining of some back pain but denies shortness of breath, palpitations, chest pain. Remains in Afib that is generally rate controlled with some breakthrough tachycardia. Date of service 03/10/2021: Much more awake alert today. Feels okay. No chest pain or shortness of breath. Date of service 03/11/2021: She says that she is not feeling as well today as she was yesterday. Complaining of back pain. She denies any chest pain but does endorse shortness of breath if she lies flat. Still in AFib mostly rate controlled but was tachycardic this morning before taking her morning meds. Date of service 03/12/2021: No new issues overnight. She's feeling better today. She is more confused today. No complaints. Review of Systems Review of Systems: ROS unobtainable: Yes unobtainable due to mental status (Patient is confused and only a limited review of systems is obtainable) Constitutional: Constitutional: Reports no additional constitutional complaints Eyes: Eyes: Reports no additional eye complaints ENT: Denies Normal hearing present Cardiovascular: Cardiovascular: Denies chest pain, Denies leg edema, Denies lightheadedness, Denies palpitations, Denies dyspnea and Denies dyspnea on exertion Respiratory: Respiratory: Denies dyspnea and Denies dyspnea on exertion Gastrointestinal: Gastrointestinal: Denies abdominal pain Genitourinary: Genitourinary: Denies hematuria Musculoskeletal: Musculoskeletal: Reports back pain Neurologic: Reports system reviewed and no additional complaints, except as documented, Denies Normal hearing present and Reports confusion Psychiatric: Psychiatric: Reports confusion Endocrine: Endocrine: Denies palpitations Exam Narrative: Elderly female lying supine eating lunch
--- NOTE | 2021-03-12 11:39 | PCNFU ---
Nutrition Follow-Up Complete: Inadequate Oral Intake as related to poor appetite as evidenced by po intake reported and weight loss of 15 ibs in the past 3 months. Goal: Adequate Intake of at least 75% of meals/supplements Moderately progressing toward goal. Will continue to monitor. Pt current nutrition is heart healthy. Last recorded weight is 78.3 kg. Bowel Motility: No BM documented. Labs Reviewed: Alb 3.1, Total Protein 5.0, Na 136, PT 16.9, APTT 44.5, Meds Noted: Miralax, eliquis, cardezem, cozaar Skin: WNL Additional Notes: Per chart, pt is eating 80%, 50%, 30%, 20% x 2 (Average 40%) of meals. Checked in on pt. Pt reported improvement in appetite and that she liked her breakfast this morning. Pt reported recent weight loss that she associates with return of breast cancer. Pt reports UBW around 200lb and current weight around 170lb. RD will monitor every 5 days.
--- NOTE | 2021-03-12 15:21 | PM.IMPN ---
Progress Note: A&P Assessment and Plan (1) Acute metabolic encephalopathy: Code(s): G93.41 - Metabolic encephalopathy Status: Acute Assessment and Plan: Suspect multifactorial due to baclofen, [place], and UTI as well as hospital delirium. -head CT and brain MRI negative for acute pathology -urine culture growing E coli, continue bactrim -continue nightly Seroquel -yesterday on exam today she had mild distention w/ abd pain, ordered bladder scan which showed >1000cc -Velez placed -CT abd/pelv shows distended bladder w/ velez in expected position. Stable subacute T11 burst fx. Mild chronic interstitial lung disease. And cirrhosis of the liver. Spoke w/ radiologist regarding cirrhosis finding which is new when compared to 03/04/21 CT abd/pelv. He states this was also seen on the previous scan but was borderline so not noted in the impression. He states this is a very mild borderline finding. Pt has no hx of etoh use. Ammonia level WNL. Will advise pt to f/u w/ pcp for monitoring. (2) UTI (urinary tract infection): Code(s): N39.0 - Urinary tract infection, site not specified Status: Acute Assessment and Plan: -Found on repeat UA and improved with abx -allergy to quinolones and cephalosporins -continue bactrim IV -Culture w/ E. Coli sensitive to bactrim (3) Atrial fibrillation with rapid ventricular response: Code(s): I48.91 - Unspecified atrial fibrillation Status: Acute Assessment and Plan: -seems to be rate controlled with oral Cardizem -continue Eliquis -acute elevation in HR yesterday likely secondary to severe urinary retention, improved today s/p velez placement (4) T11 vertebral fracture: Qualifiers: Encounter type: initial encounter Fracture morphology: burst- stable Fracture type: closed Qualified Code(s): S22.081A - Stable burst fracture of T11-T12 vertebra, initial encounter for closed fracture Code(s): S22.089A - Unspecified fracture of T11-T12 vertebra, initial encounter for closed fracture Status: Acute Assessment and Plan: Likely the cause of her back pain, no spinal compression according to MRI -will avoid narcotic and muscle relaxing pain medications -continue Tylenol -TLSO brace per ortho -continue PT and OT and will have the patient get out of bed for every meal. Will likely need SNF or ARF (5) Hypertension: Code(s): I10 - Essential (primary) hypertension Status: Acute Assessment and Plan: stable -continue losartan and diltiazem (6) Weakness: Code(s): R53.1 - Weakness Status: Acute Assessment and Plan: As above -PT and OT have been ordered, TLSO brace at bedside (7) Erythrocytosis: Code(s): D75.1 - Secondary polycythemia Status: Acute Assessment and Plan: Noted on labs, no hx of this -Dr. Reece consulted -erythropoietin and JAK2 pending (8) Discharge planning issues: Code(s): Z02.9 - Encounter for administrative examinations, unspecified Status: Acute Assessment and Plan: -pt lived at home with elderly prior to admission -needs to go to SNF for continued rehab, still confused -family wants pt to go to a SNF that will not accept her because she is not covid vaccinated -care coordination working on placement to somewhere that the family agrees to Subjective Date/time seen: 03/12/21 15:21 Interval history: 85-year-old female with a past medical history of atrial fibrillation, back pain requiring injections, breast cancer, hyperlipidemia and hypertension, admitted for vertebral burst fracture and subsequently became obtunded during admission which was attributed to UTI, narcotic/muscle relaxants, and hospital delirium. Today patient is A/Ox4 but confused. Today was talking to me about the children she was watching in her room and the RN reports she was seeing rats on the wa
--- NOTE | 2021-03-12 19:52 | PCRCNOTE ---
pt confused but very rude and will not take inhaler from therapist
[2021-03-12] MEDS: QUEtiapine FUMARATE 25 MG TABLET PO (20:26)
[2021-03-12] MEDS: SENNOSIDES 8.6 MG TABLET PO (20:26)
[2021-03-12] MEDS: DOCUSATE SODIUM 100 MG CAPSULE PO (20:26)
[2021-03-13] VITALS (10 sets, daily range): BP systolic 117–134; BP diastolic 53–67; PULSE 95–110; RESP 12–18; TEMP 36.2–37; O2SAT 94–96
[2021-03-13 06:44] LABS: Basophils Absolute Auto 0.1 K/mm3 (0.0-0.1); Eosinophils Absolute Auto 0.4 K/mm3 (0-0.3); Eosinophils Percent Auto 4.9 % (0-4.4); Hematocrit 42.4 % (37.0-47.0); Hemoglobin 14.3 g/dL (12.0-15.0); Immature Granulocyte Absolute 0.06 K/mm3 (0.00-0.031); Immature Granulocyte Percent A 0.8 % (0-0.5); Lymphocytes Absolute Auto 1.39 K/mm3 (0.9-3.2); Lymphocytes Percent Auto 18.1 % (18.3-44.2); Mean Corpuscular HGB Conc 33.7 g/dl (32-36); Mean Corpuscular Hemoglobin 29.2 pg (26-34); Mean Corpuscular Volume 86.7 fl (80-100); Mean Platelet Volume 11.5 fl (7.4-10.4); Monocytes Absolute Auto 1.2 K/mm3 (0.1-0.6); Monocytes Percent Auto 15.1 % (2.6-8.5); Neutrophils Absolute Auto 4.6 K/mm3 (1.3-6.7); Neutrophils Percent Auto 60.1 % (45.5-73.1); Platelet Count Result 264 k/mm3 (150-375); Red Blood Count 4.89 M/mm3 (4.2-5.4); Red Cell Distribution Width 13.8 % (11.5-14.5); White Blood Count 7.7 K/mm3 (4.5-10.0)
[2021-03-13] MEDS: APIXABAN 5 MG TABLET PO ×2 (09:12→16:31)
[2021-03-13] MEDS: DOCUSATE SODIUM 100 MG CAPSULE PO ×2 (09:12→20:08)
[2021-03-13] MEDS: LOSARTAN POTASSIUM 50 MG TABLET PO (09:12)
[2021-03-13] MEDS: polyethylene glycoL 3350 17 GM POWD.PACK PO (09:12)
[2021-03-13 09:19] LABS: Anion Gap 4 mmol/L (8-16); Blood Urea Nitrogen 10 mg/dL (7-17); Calcium 9.4 mg/dL (8.4-10.2); Carbon Dioxide 29 mmol/L (22-30); Chloride 99 mmol/L (98-107); Estimated CRCL calculation 43 ml/min; Estimated Glomerular Filt Rate > 60; Glucose 93 mg/dL (65-110); Potassium 4.2 mmol/L (3.4-5.0); Sodium 132 mmol/L (137-145)
[2021-03-13] MEDS: BISACODYL 10 MG SUPPOSITORY RECTAL (09:21)
--- NOTE | 2021-03-13 09:26 | PM.PNCARD ---
Progress Note: A&P Assessment and Plan (1) Atrial fibrillation with rapid ventricular response: Code(s): I48.91 - Unspecified atrial fibrillation Status: Acute Assessment and Plan: Patient, with apparent history of AFib, was found to have AFib RVR earlier this week. Will continue Diltiazem 300mg p.o. daily. Metoprolol IV push PRN for sustained HR >130 Continue apixaban for systemic a/c Echocardiogram showed hyperdynamic left ventricular systolic function with an ejection fraction greater than 70%. She does have grade 2 diastolic dysfunction. (2) Hypertension: Code(s): I10 - Essential (primary) hypertension Status: Acute Assessment and Plan: Blood pressure at goal. (3) Back pain: Qualifiers: Back pain laterality: midline Back pain location: back pain in unspecified location Chronicity: acute Qualified Code(s): M54.9 - Dorsalgia, unspecified Code(s): M54.9 - Dorsalgia, unspecified Status: Deleted Assessment and Plan: Burst fracture of T11 (4) Confusion: Code(s): R41.0 - Disorientation, unspecified Status: Acute Assessment and Plan: Likely has some underlying dementia (5) Acute metabolic encephalopathy: Code(s): G93.41 - Metabolic encephalopathy Status: Acute Assessment and Plan: This has improved significantly. Presumably due to baclofen and [place] use during this hospitalization. Management per primary service. (6) Shortness of breath: Code(s): R06.02 - Shortness of breath Status: Acute Assessment and Plan: Will give 20 mg IV furosemide x1. Subjective Date/time seen: 03/13/21 09:26 Interval history: Follow-up visit in this 85-year-old lady with: Paroxysmal atrial fibrillation currently being treated with intravenous diltiazem and IV metoprolol with good rate control. Patient was on IV medication as she was up to 100 and unable to take any p.o. medications. Admitted to the hospital with a T11 fracture. Mental status presumably related to narcotics. This morning patient is doing well no longer encephalopathic and taking p.o. medication. No cardiovascular complaints Date of service 03/08/2021: She denies any chest pain or shortness of breath. Still in AFib. Date of service 03/09/2021: Complaining of some back pain but denies shortness of breath, palpitations, chest pain. Remains in Afib that is generally rate controlled with some breakthrough tachycardia. Date of service 03/10/2021: Much more awake alert today. Feels okay. No chest pain or shortness of breath. Date of service 03/11/2021: She says that she is not feeling as well today as she was yesterday. Complaining of back pain. She denies any chest pain but does endorse shortness of breath if she lies flat. Still in AFib mostly rate controlled but was tachycardic this morning before taking her morning meds. Date of service 03/12/2021: No new issues overnight. She's feeling better today. She is more confused today. No complaints. Date of service 03/13/2021: She feels little more short of breath today. No chest pain. Review of Systems Review of Systems: ROS unobtainable: Yes unobtainable due to mental status (Patient is confused and only a limited review of systems is obtainable) Constitutional: Constitutional: Reports no additional constitutional complaints Eyes: Eyes: Reports no additional eye complaints ENT: Denies Normal hearing present Cardiovascular: Cardiovascular: Denies chest pain, Denies leg edema, Denies lightheadedness, Denies palpitations, Denies dyspnea and Denies dyspnea on exertion Respiratory: Respiratory: Denies dyspnea and Denies dyspnea on exertion Gastrointestinal: Gastrointestinal: Denies abdominal pain Genitourinary: Genitourinary: Denies hematuria Musculoskeletal: Musculoskeletal: Reports back pain Neurologic: Reports system reviewed and no additional complaints, excep
[2021-03-13] MEDS: FUROSEMIDE INJ 40 MG/4 ML VIAL 20 MG IV PUSH (10:53)
--- NOTE | 2021-03-13 13:49 | P.PNIM_ITS ---
Progress Note: A&P Assessment and Plan (1) Acute metabolic encephalopathy: Code(s): G93.41 - Metabolic encephalopathy Status: Acute Assessment and Plan: -Suspect multifactorial due to baclofen, [place], and UTI as well as hospital delirium -head CT and brain MRI negative for acute pathology -urine culture growing E coli, has had Imipenem x4 days and IV Bactrim x 5 days -suspect initial episode of AMS when patient was obtunded was secondary to [place] and Baclofen. After that she was also found to have a UTI. Over the first few days of Imipenem she slowly become more alert and oriented. Still had some con fusion but no hallucinations at the time. On day 5 of abx pt was switched to IV Bactrim, I imagine this was done so that she could go home on oral abx and she has allergies to quinolones, cephalosporins, and penicillins. Over the next few days the patient began to develop hallucinations and paranoia. She has continued to be A/Ox4 but is having worsening hallucinations. At this point her UTI has been treated with 9 days of IV abx and I believe it appropriate to stop treatment at this time. I suspect the hallucinations are secondary to the Bactrim at this point. Will continue to monitor her mental status now that the Bactrim has been discontinued. -continue nightly Seroquel (2) UTI (urinary tract infection): Code(s): N39.0 - Urinary tract infection, site not specified Status: Acute Assessment and Plan: -Found on repeat UA and improved with abx -allergy to quinolones and cephalosporins -had Imipenem x 4 days and bactrim IV x 5 days -Culture w/ E. Coli sensitive imipenem and bactrim -Suspect hallucinations potentially adverse reaction to the Bactrim. She had received a total of 9 days IV abx for UTI with appropriate abx. Bactrim stopped at this time and will continue to monitor mental status (3) Urinary retention: Code(s): R33.9 - Retention of urine, unspecified Status: Acute Assessment and Plan: -on exam she had mild distention w/ abd pain, ordered bladder scan which showed >1000cc -Velez placed -CT abd/pelv shows distended bladder w/ velez in expected position. Stable subacute T11 burst fx. Mild chronic interstitial lung disease. And cirrhosis of the liver. Spoke w/ radiologist regarding cirrhosis finding which is new when compared to 03/04/21 CT abd/pelv. He states this was also seen on the previous scan but was borderline so not noted in the impression. He states this is a very mild borderline finding. Pt has no hx of etoh use. Ammonia level WNL. Will advise pt to f/u w/ pcp for monitoring. -will plan on leaving velez in place on discharge with voiding trial in 1 week (4) Atrial fibrillation with rapid ventricular response: Code(s): I48.91 - Unspecified atrial fibrillation Status: Acute Assessment and Plan: -seems to be rate controlled with oral Cardizem -continue Eliquis -had short term acute elevation in HR likely secondary to severe urinary retention, improved s/p velez placement -cardiology following, appreciate their recommedations (5) T11 vertebral fracture: Qualifiers: Encounter type: initial encounter Fracture type: closed Fracture morphology: burst- stable Qualified Code(s): S22.081A - Stable burst fracture of T11-T12 vertebra, initial encounter for closed fracture Code(s): S22.089A - Unspecified fracture of T11-T12 vertebra, initial encounter for closed fracture Status: Acute Assessment and Plan: Likely the cause of her back pain, no spinal compression according to MRI
--- NOTE | 2021-03-13 14:18 | PCPTNOTE ---
attempted to see pt for PT this pm. pt refusing to work on standing or even LE exercises. pt not comprehending goal for therapy this date. stated her ankles are too swollen, she needs to leave the hospital now. asking to call her for he, he will know what to do. RN notified.
[2021-03-13] MEDS: ACETAMINOPHEN 325 MG TABLET 650 MG PO (17:51)
[2021-03-13] MEDS: SENNOSIDES 8.6 MG TABLET PO (20:08)
[2021-03-13] MEDS: QUEtiapine FUMARATE 25 MG TABLET PO (20:08)
[2021-03-14] VITALS (12 sets, daily range): BP systolic 112–143; BP diastolic 62–77; PULSE 81–130; RESP 14–20; TEMP 36–36.8; O2SAT 96–99
[2021-03-14 05:35] LABS: Basophils Absolute Auto 0.1 K/mm3 (0.0-0.1); Basophils Percent Auto 1.1 % (0.2-1.2); Eosinophils Absolute Auto 0.3 K/mm3 (0-0.3); Eosinophils Percent Auto 3.8 % (0-4.4); Hematocrit 45.3 % (37.0-47.0); Immature Granulocyte Absolute 0.06 K/mm3 (0.00-0.031); Immature Granulocyte Percent A 0.7 % (0-0.5); Lymphocytes Percent Auto 18.5 % (18.3-44.2); Mean Corpuscular HGB Conc 33.1 g/dl (32-36); Mean Corpuscular Hemoglobin 29.2 pg (26-34); Mean Corpuscular Volume 88.3 fl (80-100); Mean Platelet Volume 10.2 fl (7.4-10.4); Monocytes Absolute Auto 1.3 K/mm3 (0.1-0.6); Monocytes Percent Auto 16.3 % (2.6-8.5); Neutrophils Absolute Auto 4.8 K/mm3 (1.3-6.7); Neutrophils Percent Auto 59.6 % (45.5-73.1); Platelet Count Result 335 k/mm3 (150-375); Red Blood Count 5.13 M/mm3 (4.2-5.4); Red Cell Distribution Width 13.9 % (11.5-14.5); White Blood Count 8.1 K/mm3 (4.5-10.0)
[2021-03-14 05:48] LABS: Potassium 3.9 mmol/L (3.4-5.0)
[2021-03-14 06:11] LABS: Alanine Aminotransferase 24 U/L (4-35); Albumin Level 3.5 g/dL (3.5-5.1); Alkaline Phosphatase 97 U/L (38-126); Anion Gap 7 mmol/L (8-16); Aspartate Amino Transferase 42 U/L (14-36); Bilirubin,Total 0.9 mg/dL (0.2-1.3); Blood Urea Nitrogen 11 mg/dL (7-17); Calcium 9.8 mg/dL (8.4-10.2); Carbon Dioxide 29 mmol/L (22-30); Chloride 99 mmol/L (98-107); Estimated CRCL calculation 38 ml/min; Estimated Glomerular Filt Rate 59; Glucose 104 mg/dL (65-110); Sodium 135 mmol/L (137-145)
[2021-03-14] MEDS: APIXABAN 5 MG TABLET PO ×2 (08:24→17:10)
[2021-03-14] MEDS: LOSARTAN POTASSIUM 50 MG TABLET PO (08:24)
[2021-03-14] MEDS: polyethylene glycoL 3350 17 GM POWD.PACK PO (08:24)
[2021-03-14] MEDS: DOCUSATE SODIUM 100 MG CAPSULE PO ×2 (08:24→20:10)
[2021-03-14] MEDS: METOPROLOL TARTRATE INJ 5 MG/5 ML VIAL IV PUSH ×2 (11:06→20:36)
--- NOTE | 2021-03-14 11:37 | PCPTNOTE ---
Attempted to see patient for Physical Therapy session; patient refused at this time. Patient experiencing confusion and states No I'm going home today. I have way too much to do today. I have a lot of appointments, can I call you back when I'm done with them . RN notified. Will attempt at a later time/date as appropriate with PT POC.
--- NOTE | 2021-03-14 12:34 | PM.IMPN ---
Progress Note: A&P Assessment and Plan (1) Acute metabolic encephalopathy: Code(s): G93.41 - Metabolic encephalopathy Status: Acute Assessment and Plan: -Suspect multifactorial due to baclofen, [place], and UTI as well as hospital delirium -head CT and brain MRI negative for acute pathology -urine culture growing E coli, has had Imipenem x4 days and IV Bactrim x 5 days -suspect initial episode of AMS when patient was obtunded was secondary to [place] and Baclofen. After that she was also found to have a UTI. Over the first few days of Imipenem she slowly become more alert and oriented. Still had some confusion but no hallucinations at the time. On day 5 of abx pt was switched to IV Bactrim, I imagine this was done so that she could go home on oral abx and she has allergies to quinolones, cephalosporins, and penicillins. Over the next few days the patient began to develop hallucinations and paranoia. She has continued to be A/Ox4 but is having worsening hallucinations. At this point her UTI has been treated with 9 days of IV abx and I believe it appropriate to stop treatment at this time. I suspect the hallucinations are secondary to the Bactrim at this point. Will continue to monitor her mental status now that the Bactrim has been discontinued. -No improvement 24 hours after stopping Bactrim. Will stop Seroquel tonight and reassess tomorrow. (2) UTI (urinary tract infection): Code(s): N39.0 - Urinary tract infection, site not specified Status: Acute Assessment and Plan: -Found on repeat UA and improved with abx -allergy to quinolones and cephalosporins -had Imipenem x 4 days and bactrim IV x 5 days -Culture w/ E. Coli sensitive imipenem and bactrim -Suspect hallucinations potentially adverse reaction to the Bactrim. She had received a total of 9 days IV abx for UTI with appropriate abx. Bactrim stopped at this time and will continue to monitor mental status (3) Urinary retention: Code(s): R33.9 - Retention of urine, unspecified Status: Acute Assessment and Plan: -on exam she had mild distention w/ abd pain, ordered bladder scan which showed >1000cc -Velez placed -CT abd/pelv shows distended bladder w/ velez in expected position. Stable subacute T11 burst fx. Mild chronic interstitial lung disease. And cirrhosis of the liver. Spoke w/ radiologist regarding cirrhosis finding which is new when compared to 03/04/21 CT abd/pelv. He states this was also seen on the previous scan but was borderline so not noted in the impression. He states this is a very mild borderline finding. Pt has no hx of etoh use. Ammonia level WNL. Will advise pt to f/u w/ pcp for monitoring. -will plan on leaving velez in place on discharge with voiding trial in 1 week (4) Atrial fibrillation with rapid ventricular response: Code(s): I48.91 - Unspecified atrial fibrillation Status: Acute Assessment and Plan: -seems to be rate controlled with oral Cardizem -continue Eliquis -had short term acute elevation in HR likely secondary to severe urinary retention, improved s/p velez placement -cardiology following, appreciate their recommedations (5) T11 vertebral fracture: Qualifiers: Encounter type: initial encounter Fracture type: closed Fracture morphology: burst- stable Qualified Code(s): S22.081A - Stable burst fracture of T11-T12 vertebra, initial encounter for closed fracture Code(s): S22.089A - Unspecified fracture of T11-T12 vertebra, initial encounter for closed fracture Status: Acute Assessment and Plan: Likely the cause of her back pain, no spinal compression according to MRI -will avoid narcotic and muscle relaxing pain medications -continue Tylenol -TLSO brace per ortho -continue PT and OT and will have the patient get out of bed for every meal. Will be going to SNF, specific facility TBD. (6) Hypertension:
[2021-03-14] MEDS: SALINE 0.65% NAS SOLN 44 ML BTL 1 SPRAY NASAL (14:33)
[2021-03-14] MEDS: SENNOSIDES 8.6 MG TABLET PO (20:10)
[2021-03-15] VITALS (12 sets, daily range): BP systolic 134–146; BP diastolic 70–90; PULSE 88–132; RESP 16–17; TEMP 36.2–37; O2SAT 95–96
[2021-03-15 05:42] LABS: Basophils Absolute Auto 0.1 K/mm3 (0.0-0.1); Basophils Percent Auto 1.3 % (0.2-1.2); Eosinophils Absolute Auto 0.2 K/mm3 (0-0.3); Hematocrit 47.6 % (37.0-47.0); Hemoglobin 15.9 g/dL (12.0-15.0); Immature Granulocyte Absolute 0.09 K/mm3 (0.00-0.031); Immature Granulocyte Percent A 0.9 % (0-0.5); Lymphocytes Percent Auto 20.6 % (18.3-44.2); Mean Corpuscular HGB Conc 33.4 g/dl (32-36); Mean Corpuscular Hemoglobin 29.1 pg (26-34); Mean Corpuscular Volume 87.2 fl (80-100); Mean Platelet Volume 10.4 fl (7.4-10.4); Monocytes Absolute Auto 1.6 K/mm3 (0.1-0.6); Neutrophils Absolute Auto 5.7 K/mm3 (1.3-6.7); Neutrophils Percent Auto 59.2 % (45.5-73.1); Platelet Count Result 422 k/mm3 (150-375); Red Blood Count 5.46 M/mm3 (4.2-5.4); Red Cell Distribution Width 13.6 % (11.5-14.5); White Blood Count 9.7 K/mm3 (4.5-10.0)
[2021-03-15 05:57] LABS: Anion Gap 12 mmol/L (8-16); Blood Urea Nitrogen 11 mg/dL (7-17); Calcium 9.9 mg/dL (8.4-10.2); Carbon Dioxide 25 mmol/L (22-30); Chloride 97 mmol/L (98-107); Estimated CRCL calculation 37 ml/min; Estimated Glomerular Filt Rate 59; Glucose 97 mg/dL (65-110); Potassium 3.7 mmol/L (3.4-5.0); Sodium 134 mmol/L (137-145)
[2021-03-15] MEDS: METOPROLOL TARTRATE INJ 5 MG/5 ML VIAL IV PUSH ×2 (06:06→10:48)
[2021-03-15] MEDS: DOCUSATE SODIUM 100 MG CAPSULE PO ×2 (08:31→20:18)
[2021-03-15] MEDS: polyethylene glycoL 3350 17 GM POWD.PACK PO (08:31)
[2021-03-15] MEDS: APIXABAN 5 MG TABLET PO ×2 (08:31→16:34)
[2021-03-15] MEDS: LOSARTAN POTASSIUM 50 MG TABLET PO (08:31)
--- NOTE | 2021-03-15 12:09 | PCNFU ---
Nutrition Follow-Up Complete: Inadequate Oral Intake as related to poor appetite as evidenced by po intake reported and weight loss of 15 ibs in the past 3 months. Goal: Adequate Intake of at least 75% of meals/supplements Patient has limited progress towards goal. We will continue current goal. Pt current nutrition is Heart Healthy with Ensure Compact BID. Last recorded weight is 75.6 kg, down from 77.9 kg on admit. Bowel Motility:+BM reported 03/14 Labs Reviewed:Na 134, Hgb 15.9, Hct 47.6 Meds Noted: Colace, Lasix,Lopressor,Miralax,Lasix,Eliquis. Skin: WNL Additional Notes: Patient remains on a heart healthy diet. Tried speaking with patient today, she is confused. Oral intake has been 20-25% of most meals. Ensure compact BID is being provided for an additional 220 kcals and 9 gms protein. PO intake encouraged. Monitoring: RD will monitor every 5 days.
--- NOTE | 2021-03-15 15:45 | PM.IMPN ---
Progress Note: A&P Assessment and Plan (1) Acute metabolic encephalopathy: Code(s): G93.41 - Metabolic encephalopathy Status: Acute Assessment and Plan: -Suspect multifactorial due to baclofen, [place], and UTI as well as hospital delirium -head CT and brain MRI negative for acute pathology -urine culture growing E coli, has had Imipenem x4 days and IV Bactrim x 5 days -suspect initial episode of AMS when patient was obtunded was secondary to [place] and Baclofen. After that she was also found to have a UTI. Over the first few days of Imipenem she slowly become more alert and oriented. Still had some confusion but no hallucinations at the time. On day 5 of abx pt was switched to IV Bactrim, I imagine this was done so that she could go home on oral abx and she has allergies to quinolones, cephalosporins, and penicillins. Over the next few days the patient began to develop hallucinations and paranoia. She has continued to be A/Ox4 but is having worsening hallucinations. At this point her UTI has been treated with 9 days of IV abx and I believe it appropriate to stop treatment at this time. I suspect the hallucinations are secondary to the Bactrim at this point. Will continue to monitor her mental status now that the Bactrim has been discontinued. -No improvement 48 hours after stopping Bactrim. -Stopped Seroquel yesterday, still no improvement -Will check a repeat CRP, ammonia level, and basic labs. Also just continue to monitor as the Bactrim and Seroquel hopefully work their way out of her system. (2) UTI (urinary tract infection): Code(s): N39.0 - Urinary tract infection, site not specified Status: Acute Assessment and Plan: -Found on repeat UA and improved with abx -allergy to quinolones and cephalosporins -had Imipenem x 4 days and bactrim IV x 5 days -Culture w/ E. Coli sensitive imipenem and bactrim -Suspect hallucinations potentially adverse reaction to the Bactrim. She had received a total of 9 days IV abx for UTI with appropriate abx. Bactrim stopped at this time and will continue to monitor mental status (3) Urinary retention: Code(s): R33.9 - Retention of urine, unspecified Status: Acute Assessment and Plan: -on exam she had mild distention w/ abd pain, ordered bladder scan which showed >1000cc -Velez placed -CT abd/pelv shows distended bladder w/ velez in expected position. Stable subacute T11 burst fx. Mild chronic interstitial lung disease. And cirrhosis of the liver. Spoke w/ radiologist regarding cirrhosis finding which is new when compared to 03/04/21 CT abd/pelv. He states this was also seen on the previous scan but was borderline so not noted in the impression. He states this is a very mild borderline finding. Pt has no hx of etoh use. Ammonia level WNL. Will advise pt to f/u w/ pcp for monitoring. -will plan on leaving velez in place with voiding trial in 1 week (4) Atrial fibrillation with rapid ventricular response: Code(s): I48.91 - Unspecified atrial fibrillation Status: Acute Assessment and Plan: -seems to be rate controlled with oral Cardizem -continue Eliquis -had short term acute elevation in HR likely secondary to severe urinary retention, improved s/p velez placement -cardiology following, appreciate any additional recommendations (5) T11 vertebral fracture: Qualifiers: Encounter type: initial encounter Fracture type: closed Fracture morphology: burst- stable Qualified Code(s): S22.081A - Stable burst fracture of T11-T12 vertebra, initial encounter for closed fracture Code(s): S22.089A - Unspecified fracture of T11-T12 vertebra, initial encounter for closed fracture Status: Acute Assessment and Plan: Likely the cause of her back pain, no spinal compression according to MRI -will avoid narcotic and muscle relaxing pain medications -continue Tylenol -TLSO brace per orth
[2021-03-15] MEDS: SENNOSIDES 8.6 MG TABLET PO (20:18)
[2021-03-16] VITALS (11 sets, daily range): BP systolic 126–131; BP diastolic 58–71; PULSE 65–118; RESP 16–18; TEMP 36.2–36.4; O2SAT 93–97
[2021-03-16 06:13] LABS: Basophils Absolute Auto 0.1 K/mm3 (0.0-0.1); Basophils Percent Auto 1.3 % (0.2-1.2); Eosinophils Absolute Auto 0.2 K/mm3 (0-0.3); Eosinophils Percent Auto 2.1 % (0-4.4); Hemoglobin 16.9 g/dL (12.0-15.0); Immature Granulocyte Absolute 0.07 K/mm3 (0.00-0.031); Immature Granulocyte Percent A 0.7 % (0-0.5); Lymphocytes Absolute Auto 2.13 K/mm3 (0.9-3.2); Lymphocytes Percent Auto 20.3 % (18.3-44.2); Mean Corpuscular HGB Conc 33.1 g/dl (32-36); Mean Corpuscular Hemoglobin 29.8 pg (26-34); Mean Corpuscular Volume 89.8 fl (80-100); Mean Platelet Volume 9.9 fl (7.4-10.4); Monocytes Absolute Auto 1.3 K/mm3 (0.1-0.6); Monocytes Percent Auto 12.4 % (2.6-8.5); Neutrophils Absolute Auto 6.6 K/mm3 (1.3-6.7); Neutrophils Percent Auto 63.2 % (45.5-73.1); Platelet Count Result 388 k/mm3 (150-375); Red Blood Count 5.68 M/mm3 (4.2-5.4); Red Cell Distribution Width 14.1 % (11.5-14.5); White Blood Count 10.5 K/mm3 (4.5-10.0)
[2021-03-16 06:32] LABS: Ammonia < 9 umol/L (9-30)
[2021-03-16 07:00] LABS: Alanine Aminotransferase 31 U/L (4-35); Albumin Level 3.9 g/dL (3.5-5.1); Alkaline Phosphatase 121 U/L (38-126); Anion Gap 10 mmol/L (8-16); Aspartate Amino Transferase 49 U/L (14-36); Blood Urea Nitrogen 17 mg/dL (7-17); CRP 2.8 mg/dL (<1.0); Calcium 9.7 mg/dL (8.4-10.2); Carbon Dioxide 24 mmol/L (22-30); Chloride 99 mmol/L (98-107); Estimated CRCL calculation 42 ml/min; Estimated Glomerular Filt Rate > 60; Glucose 97 mg/dL (65-110); Potassium 4.3 mmol/L (3.4-5.0); Sodium 133 mmol/L (137-145)
[2021-03-16] MEDS: LOSARTAN POTASSIUM 50 MG TABLET PO (07:46)
[2021-03-16] MEDS: APIXABAN 5 MG TABLET PO ×2 (07:46→16:35)
[2021-03-16] MEDS: polyethylene glycoL 3350 17 GM POWD.PACK PO (07:46)
[2021-03-16] MEDS: DOCUSATE SODIUM 100 MG CAPSULE PO ×2 (07:46→20:22)
[2021-03-16 09:36] LABS: Add Urine Microscopic? YES; Appearance Urine Cloudy (Clear); Bacteria Urine Trace /hpf; Bilirubin Urine Negative (Negative); Blood Urine Negative (Negative); Color Urine Yellow (Yellow); Glucose Urine UA Negative (Negative); Ketones Urine Negative (Negative); Leukocyte Esterase Ur Negative LEU/UL (Negative); Mucus Urine Rare /lpf; Nitrate Urine Negative (Negative); Protein Urine Negative (Negative); RBC Urine 0-2 /hpf (0-2); Specific Grav Ur 1.016 (1.001-1.035); WBC Urine 0-3 /hpf
--- NOTE | 2021-03-16 10:07 | PM.PNORT ---
Progress Note: A&P Assessment and Plan (1) T11 vertebral fracture: Qualifiers: Encounter type: initial encounter Fracture type: closed Fracture morphology: burst- stable Qualified Code(s): S22.081A - Stable burst fracture of T11-T12 vertebra, initial encounter for closed fracture Code(s): S22.089A - Unspecified fracture of T11-T12 vertebra, initial encounter for closed fracture Status: Acute Assessment and Plan: Follow up with patient today regarding T11 burst fracture. She is now 2 weeks s/p MRI of the spine which revealed an acute T11 burst fracture. Reviewed history with the patient today. She does see a paint prep technician for history of back pain and has undergone injections. She reports she see Dr. Kang in [place]. She cannot recall an injury prior to her date of admission but does loosely report a fall while walking down the street. Unsure of accuracy of reported history. Patient has been having difficulty working with PT/OT. She has had low motivation as well as periods of poor mentation and hallucinations. Today, her mentation is good. She is not having hallucinations at this time. She is agreeable to work with PT/OT. She understands need for TLSO brace when OOB. Encouraged patient to get to chair today. PT/OT notified. Overall, patient denies back pain today. Her only c/o pain is her right heel which appears to an area of pressure. No open wounds. Recommended waffle boots given patient has been bedbound for over two weeks. Nursing notified. Continue TLSA brace when OOB. Continue PT/OT. Limit narcotics. Tylenol as need for pain. Heating pad if necessary. No further orthopedic recommendations at this time. Additional Plan Reviewed case and assessment with attending MD and consulted physician, Dr. Greer. No further recommendations at this time. Subjective Subjective Date/Time Seen: 03/16/21 10:07 Interval history: Patient with improvement in overall mentation today. Answering questions regarding her back pain history appropriately. Difficulty working with PT. Complaints of right heel pain today. No other concerns regarding back at this time. Review of Systems Constitutional: Constitutional: Reports no additional constitutional complaints, Denies chills, Denies night sweats and Reports weakness Cardiovascular: Cardiovascular: Denies chest pain Respiratory: Respiratory: Reports no additional respiratory complaints Gastrointestinal: Gastrointestinal: Reports no additional gastrointestinal complaints Musculoskeletal: Musculoskeletal: Reports as per HPI Exam Const: General: comfortable and no acute distress Resp: Effort & Inspection: normal respiratory effort GI: Inspection: non-distended GI Palp: Yes Soft to palpation and No Tenderness to palpation present (GI) Urinary Catheter: Urinary Catheter: patent and draining and urine dark Skin: Wounds: wounds noted (Non blanchable redness on the right medial heel ) Neuro: General: No gait normal Cognition (Neuro): normal cognition Speech: normal speech Motor exam (neuro): strength not 5/5 throughout and Abnormal motor strength present (b/l LE ) Other: Mentation good at time of exam. Answering questions appropriately. Extrem: General: no pedal edema, no calf tenderness and no calf tenderness bilaterally Other: No spine pain with palpation. Able to move in bed without significant pain. +ankle dorsiflexion/plantarflexion. Negative straight leg raise bilaterally. Palpable pedal pulses. Sensation intact to light touch. +flexion/extension of hip/knees. Tenderness on the medial aspect of the right heel. Nonblanchable redness. Psych: Mental Status: mental status grossly normal (answering questions appropriately today. ) Objective Data Vital Signs Vital Signs: Vital Signs - 24 hr 03/15/21 10:09 03/15/21 10:48 03/15/21 12:00 Temperature Pulse Rate 88 132 H 101 H Respiratory Rate Blood Pressure Pulse Oximetry 96
--- NOTE | 2021-03-16 15:27 | PM.IMPN ---
Progress Note: A&P Assessment and Plan (1) Acute metabolic encephalopathy: Code(s): G93.41 - Metabolic encephalopathy Status: Acute Assessment and Plan: -Suspect multifactorial due to baclofen, [place], and UTI as well as hospital delirium -head CT and brain MRI negative for acute pathology -patient has been successfully treated for UTI. Repeat UA negative -she was on Seroquel for hallucinations earlier this stay which has been stat -spoke with patient and family about plan of care. If she does not have any hallucinations overnight, she may be able to be discharged to SNF soon. If she continues to hallucinate I will consult Geriatric psych at this point (2) UTI (urinary tract infection): Code(s): N39.0 - Urinary tract infection, site not specified Status: Acute Assessment and Plan: Antibiotics completed, UA today does not show any further UTI -she finished Bactrim while hospitalized (3) Urinary retention: Code(s): R33.9 - Retention of urine, unspecified Status: Acute Assessment and Plan: -on exam she had mild distention w/ abd pain, ordered bladder scan which showed >1000cc -Velez re-placed (had a successful voiding trial earlier in the stay but started retaining again) -will plan on leaving velez in place with voiding trial in 1 week (4) Atrial fibrillation with rapid ventricular response: Code(s): I48.91 - Unspecified atrial fibrillation Status: Acute Assessment and Plan: -seems to be rate controlled with oral Cardizem -continue Eliquis -cardiology following, appreciate any additional recommendations (5) T11 vertebral fracture: Qualifiers: Encounter type: initial encounter Fracture type: closed Fracture morphology: burst- stable Qualified Code(s): S22.081A - Stable burst fracture of T11-T12 vertebra, initial encounter for closed fracture Code(s): S22.089A - Unspecified fracture of T11-T12 vertebra, initial encounter for closed fracture Status: Acute Assessment and Plan: Likely the cause of her back pain, no spinal compression according to MRI -will avoid narcotic and muscle relaxing pain medications -continue Tylenol -TLSO brace per ortho -continue PT and OT, -Will be going to SNF, specific facility TBD. -discussed with the patient about the importance of getting out of bed as she is at high risk for being bed-bound due to her prolonged hospitalization and back fracture (6) Hypertension: Code(s): I10 - Essential (primary) hypertension Status: Acute Assessment and Plan: Last blood pressure 126/58 -continue losartan and diltiazem (7) Weakness: Code(s): R53.1 - Weakness Status: Acute Assessment and Plan: As above -PT and OT have been ordered, TLSO brace at bedside (8) Erythrocytosis: Code(s): D75.1 - Secondary polycythemia Status: Acute Assessment and Plan: Noted on labs, no hx of this -Dr. Reece consulted -erythropoietin and JAK2 evaluated -Pt to follow up outpatient with Dr. Reece, his office information was provided to the family (9) Discharge planning issues: Code(s): Z02.9 - Encounter for administrative examinations, unspecified Status: Acute Assessment and Plan: -pt lived at home with elderly prior to admission -needs to go to SNF for continued rehab, still confused and refusing PT/OT at this time -family wants pt to go to a SNF that will not accept her because she is not covid vaccinated -care coordination working on placement to somewhere that the family agrees to Time Spent With Patient Time with patient: 25 - 35 minutes Subjective Date/time seen: 03/16/21 15:27 Interval history: Pt is a 85-year-old female here for back fracture, UTI and persistent confusion. Patient was seen today with family at bedside. Patient seems to be alert and oriented x4 and an
--- NOTE | 2021-03-16 15:35 | PCOTNOTE ---
On 03/16/21, the student, Lilia Mariano, provided care and completed [facility] documentation on this patient. I have reviewed the student's documentation and agree with the findings.
[2021-03-16] MEDS: SENNOSIDES 8.6 MG TABLET PO (20:22)
--- NOTE | 2021-03-16 22:12 | PCRCNOTE ---
therapist unable to give due to timing. too close to next dosage
[2021-03-16] MEDS: METOPROLOL TARTRATE INJ 5 MG/5 ML VIAL IV PUSH (23:28)
[2021-03-17] VITALS (10 sets, daily range): BP systolic 115–134; BP diastolic 64–70; PULSE 83–122; RESP 14–18; TEMP 36.3–36.7; O2SAT 94–97
[2021-03-17] MEDS: ACETAMINOPHEN 325 MG TABLET 650 MG PO (05:07)
[2021-03-17 06:57] LABS: Hematocrit 46.2 % (37.0-47.0); Hemoglobin 15.4 g/dL (12.0-15.0); Mean Corpuscular HGB Conc 33.3 g/dl (32-36); Mean Corpuscular Hemoglobin 29.7 pg (26-34); Mean Corpuscular Volume 89.2 fl (80-100); Mean Platelet Volume 10.4 fl (7.4-10.4); Platelet Count Result 457 k/mm3 (150-375); Red Blood Count 5.18 M/mm3 (4.2-5.4); Red Cell Distribution Width 14.2 % (11.5-14.5); White Blood Count 11.2 K/mm3 (4.5-10.0)
[2021-03-17] MEDS: LOSARTAN POTASSIUM 50 MG TABLET PO (08:15)
[2021-03-17] MEDS: DOCUSATE SODIUM 100 MG CAPSULE PO ×2 (08:15→20:15)
[2021-03-17] MEDS: polyethylene glycoL 3350 17 GM POWD.PACK PO (08:15)
[2021-03-17] MEDS: APIXABAN 5 MG TABLET PO ×2 (08:15→17:24)
[2021-03-17 09:16] LABS: Alanine Aminotransferase 27 U/L (4-35); Albumin Level 3.4 g/dL (3.5-5.1); Alkaline Phosphatase 116 U/L (38-126); Anion Gap 7 mmol/L (8-16); Aspartate Amino Transferase 42 U/L (14-36); Blood Urea Nitrogen 15 mg/dL (7-17); Calcium 9.4 mg/dL (8.4-10.2); Carbon Dioxide 26 mmol/L (22-30); Chloride 101 mmol/L (98-107); Estimated CRCL calculation 37 ml/min; Estimated Glomerular Filt Rate 59; Glucose 104 mg/dL (65-110); Potassium 4.1 mmol/L (3.4-5.0); Sodium 134 mmol/L (137-145)
--- NOTE | 2021-03-17 16:52 | PM.IMPN ---
Progress Note: A&P Assessment and Plan (1) Acute metabolic encephalopathy: Code(s): G93.41 - Metabolic encephalopathy Status: Acute Assessment and Plan: Resolved. -Suspect multifactorial due to baclofen, [place], and UTI as well as hospital delirium -head CT and brain MRI negative for acute pathology -patient has been successfully treated for UTI. Repeat UA negative -she was on Seroquel for hallucinations earlier this stay which has been discontinued -spoke with patient and family about plan of care. Plan for d/c tomorrow if she has no further hallucinations. She will be going to SNF (2) UTI (urinary tract infection): Code(s): N39.0 - Urinary tract infection, site not specified Status: Acute Assessment and Plan: Antibiotics completed, repeat UA does not show any further UTI -she finished Bactrim while hospitalized (3) Urinary retention: Code(s): R33.9 - Retention of urine, unspecified Status: Acute Assessment and Plan: -on exam she had mild distention w/ abd pain, ordered bladder scan which showed >1000cc -Velez re-placed (had a successful voiding trial earlier in the stay but started retaining again) -will plan on leaving velez in place and she will f/u with urology (4) Atrial fibrillation with rapid ventricular response: Code(s): I48.91 - Unspecified atrial fibrillation Status: Acute Assessment and Plan: -seems to be rate controlled with oral Cardizem -continue Eliquis -cardiology following, appreciate any additional recommendations (5) T11 vertebral fracture: Qualifiers: Encounter type: initial encounter Fracture type: closed Fracture morphology: burst- stable Qualified Code(s): S22.081A - Stable burst fracture of T11-T12 vertebra, initial encounter for closed fracture Code(s): S22.089A - Unspecified fracture of T11-T12 vertebra, initial encounter for closed fracture Status: Acute Assessment and Plan: Likely the cause of her back pain, no spinal compression according to MRI -will avoid narcotic and muscle relaxing pain medications -continue Tylenol -TLSO brace per ortho -continue PT and OT, -Will be going to SNF -discussed with the patient about the importance of getting out of bed as she is at high risk for being bed-bound due to her prolonged hospitalization and back fracture (6) Hypertension: Code(s): I10 - Essential (primary) hypertension Status: Acute Assessment and Plan: Last blood pressure 115/64 -continue losartan and diltiazem (7) Weakness: Code(s): R53.1 - Weakness Status: Acute Assessment and Plan: As above -PT and OT have been ordered, TLSO brace at bedside (8) Erythrocytosis: Code(s): D75.1 - Secondary polycythemia Status: Acute Assessment and Plan: Noted on labs, no hx of this -Dr. Reece consulted -erythropoietin and JAK2 evaluated -Pt to follow up outpatient with Dr. Reece, his office information was provided to the family (9) Discharge planning issues: Code(s): Z02.9 - Encounter for administrative examinations, unspecified Status: Acute Assessment and Plan: plan for d/c tomorrow Subjective Date/time seen: 03/17/21 16:52 Interval history: Pt is a 85-year-old female here for back fracture, UTI and persistent confusion. Patient was seen today with family at bedside. Patient seems to be alert and oriented x4 and answer questions appropriately. No further hallucinations overnight or today.The patient has no complaints. She denies chest pain, shortness of breath, fevers, chills, diarrhea, constipation, nausea or vomiting. Exam Narrative: General: Well developed well nourished patient in NAD HEENT: normocephalic Neck: supple Neuro: Alert and oriented x4 for me today. Equal strength in the upper and lower extremities 5/5 CV: Irregularly irreg
[2021-03-17] MEDS: SENNOSIDES 8.6 MG TABLET PO (20:15)
[2021-03-18] VITALS: PULSE 110
[2021-03-18 04:00] VITALS: PULSE 114
[2021-03-18 05:51] LABS: Hematocrit 45.3 % (37.0-47.0); Hemoglobin 14.9 g/dL (12.0-15.0); Mean Corpuscular HGB Conc 32.9 g/dl (32-36); Mean Corpuscular Hemoglobin 29.3 pg (26-34); Mean Corpuscular Volume 89.2 fl (80-100); Mean Platelet Volume 9.7 fl (7.4-10.4); Platelet Count Result 463 k/mm3 (150-375); Red Blood Count 5.08 M/mm3 (4.2-5.4); Red Cell Distribution Width 14.2 % (11.5-14.5)
[2021-03-18 05:57] VITALS: BP 143/74; PULSE 108; RESP 18; TEMP 36.6; O2SAT 95
[2021-03-18 06:09] LABS: Anion Gap 6 mmol/L (8-16); Blood Urea Nitrogen 13 mg/dL (7-17); Calcium 9.2 mg/dL (8.4-10.2); Carbon Dioxide 26 mmol/L (22-30); Chloride 99 mmol/L (98-107); Estimated CRCL calculation 42 ml/min; Estimated Glomerular Filt Rate > 60; Glucose 103 mg/dL (65-110); Potassium 4.1 mmol/L (3.4-5.0); Sodium 131 mmol/L (137-145)
[2021-03-18] MEDS: polyethylene glycoL 3350 17 GM POWD.PACK PO (07:53)
[2021-03-18] MEDS: DOCUSATE SODIUM 100 MG CAPSULE PO (07:53)
[2021-03-18] MEDS: APIXABAN 5 MG TABLET PO (07:53)
[2021-03-18] MEDS: LOSARTAN POTASSIUM 50 MG TABLET PO (07:54)
[2021-03-18 08:00] VITALS: PULSE 108
[2021-03-18 09:15] VITALS: O2SAT 97
--- NOTE | 2021-03-18 09:19 | PM.DS ---
DS: Admitting Diagnosis Discharge Date 03/18/21 Admitting Diagnosis back fx DS: Discharge Diagnosis Discharge Diagnosis (1) Acute metabolic encephalopathy: Code(s): G93.41 - Metabolic encephalopathy Status: Acute Assessment and Plan: Resolved. -Suspect multifactorial due to medications ([place], baclofen, +/- seroquel), UTI as well as hospital delirium -head CT and brain MRI negative for acute pathology -patient has been successfully treated for UTI. Repeat UA negative (2) UTI (urinary tract infection): Code(s): N39.0 - Urinary tract infection, site not specified Status: Acute Assessment and Plan: Antibiotics completed, repeat UA does not show any further UTI -she finished Bactrim while hospitalized (3) Urinary retention: Code(s): R33.9 - Retention of urine, unspecified Status: Acute Assessment and Plan: Pt had multiple instances of urinary retention -Velez re-placed (had a successful voiding trial earlier in the stay but started retaining again) - plan on leaving velez in place and do a voiding trial outpt with f/u with urology (4) Atrial fibrillation with rapid ventricular response: Code(s): I48.91 - Unspecified atrial fibrillation Status: Acute Assessment and Plan: Continue Cardizem and Eliquis outpatient (5) T11 vertebral fracture: Qualifiers: Encounter type: initial encounter Fracture type: closed Fracture morphology: burst- stable Qualified Code(s): S22.081A - Stable burst fracture of T11-T12 vertebra, initial encounter for closed fracture Code(s): S22.089A - Unspecified fracture of T11-T12 vertebra, initial encounter for closed fracture Status: Acute Assessment and Plan: Likely the cause of her back pain, no spinal compression according to MRI -will avoid narcotic and muscle relaxing pain medications -continue Tylenol -TLSO brace per ortho -continue PT and OT at SNF -discussed with the patient about the importance of getting out of bed as she is at high risk for being bed-bound due to her prolonged hospitalization and back fracture (6) Hypertension: Code(s): I10 - Essential (primary) hypertension Status: Acute Assessment and Plan: Last blood pressure 143/74 -continue losartan and diltiazem (7) Weakness: Code(s): R53.1 - Weakness Status: Acute Assessment and Plan: As above (8) Erythrocytosis: Code(s): D75.1 - Secondary polycythemia Status: Acute Assessment and Plan: Noted on labs, no hx of this -Dr. Reece consulted -erythropoietin and JAK2 evaluated -Pt to follow up outpatient with Dr. Reece, his office information was provided to the family (9) Cirrhosis: Code(s): K74.60 - Unspecified cirrhosis of liver Status: Acute Assessment and Plan: Noted on CT -no signs of decompensation or liver failure -follow-up with primary care physician DS: Summary Hospital Course Hospital Course: Date of service 03/18/2021 Patient is an 85-year-old female her past medical history of AFib and hypertension who presented emergency room on 03/03/21 for back pain. Vitals in the ER were temperature 35.8? C, pulse 92, respiratory rate 18, blood pressure 145/118, pulse ox 98 on room air. Initial white blood cell count 12.0, hemoglobin 16.8, hematocrit 50, platelets 274. BMP relatively normal. CT of the thoracic and lumbar spine showed an acute T11 burst fracture. Chest x-ray on admission showed mild scarring at the right lung apex and cardiomegaly. UA initially negative. Patient was admitted to the hospitalist service and started on [place] for pain. She also had baclofen in her home medications and not was given. The patient then became significantly confused. Head CT was done which showed moderate nonspecific white matter disease and no acute pathology. Thoracic MRI was done which showed
[2021-03-18 10:20] LABS: EDCOVIDSCREEN Negative (Negative)
== END 2021-03-18 11:57 | DRG 689 ==
LOC: ANHED 03-03 02:59 → ANHIMU 03-03 03:45 → ANH3MED 03-09 19:59 → ANHIMU 03-19 13:12
PROVIDERS: Internal Medicine Hematology & Oncology; Nurse Practitioner; Physician Assistant; Admitting Provider Internal Medicine; Emergency Provider Emergency Medicine; PCP Family Medicine; Visit Provider Internal Medicine
DX: N39.0 Urinary tract infection, site not specified (principal); G93.41 Metabolic encephalopathy; G92.8 Other toxic encephalopathy; S22.081A Stable burst fracture of T11-T12 vertebra, initial encounter for closed fracture; F05 Delirium due to known physiological condition; B96.20 Unspecified Escherichia coli [E. coli] as the cause of diseases classified elsewhere; T42.8X5A Adverse effect of antiparkinsonism drugs and other central muscle-tone depressants, initial encounter; R33.9 Retention of urine, unspecified; T39.1X5A Adverse effect of 4-Aminophenol derivatives, initial encounter; Z20.822 Contact with and (suspected) exposure to COVID-19; I48.0 Paroxysmal atrial fibrillation; I10 Essential (primary) hypertension; J45.909 Unspecified asthma, uncomplicated; D75.1 Secondary polycythemia; K74.60 Unspecified cirrhosis of liver; E78.5 Hyperlipidemia, unspecified; Z85.3 Personal history of malignant neoplasm of breast; Z79.01 Long term (current) use of anticoagulants; X58.XXXA Exposure to other specified factors, initial encounter
CPT/HCPCS: 36415; 36600; 70450; 70551; 71045; 72128; 72131; 72146; 72148; 74176; 74177; 80048; 80053; 80076; 80307; 81001; 81003; 81219; 81270; 81402; 81403; 81479; 82140; 82375; 82607; 82668; 82746; 82805; 82948; 83050; 83735; 83880; 84443; 84484; 85025; 85027; 85610; 85652; 85730; 86140; 87040; 87077; 87086; 87088; 87186; 87426; 87804; 93005; 93306; 94640; 96365; 96366; 96375; 96376; 97110; 97162; 97166; 97530; 97535; 99285; A9270; C9803; G0378; J0131; J0743; J1170; J1630; J1940; J2060; J2310; J2405; J7030; J7060; J7120; Q9967; U0003; U0005

== ENCOUNTER 2022-01-03 15:25 | Emergency (ER) | payer MEDICARE, MEDICAID, SELFPAY ==
[2022-01-03 16:10] VITALS: BP 130/85; PULSE 85; RESP 14; TEMP 35.8; O2SAT 97
[2022-01-03 16:25] LABS: Basophils Absolute Auto 0.1 K/mm3 (0.0-0.1); Basophils Percent Auto 0.5 % (0.2-1.2); Eosinophils Percent Auto 0.4 % (0-4.4); Hematocrit 47.4 % (37.0-47.0); Hemoglobin 15.7 g/dL (12.0-15.0); Immature Granulocyte Absolute 0.03 K/mm3 (0.00-0.031); Immature Granulocyte Percent A 0.3 % (0-0.5); Lymphocytes Absolute Auto 1.94 K/mm3 (0.9-3.2); Lymphocytes Percent Auto 20.6 % (18.3-44.2); Mean Corpuscular HGB Conc 33.1 g/dl (32-36); Mean Corpuscular Hemoglobin 29.6 pg (26-34); Mean Corpuscular Volume 89.4 fl (80-100); Mean Platelet Volume 9.6 fl (7.4-10.4); Monocytes Absolute Auto 1.1 K/mm3 (0.1-0.6); Monocytes Percent Auto 11.3 % (2.6-8.5); Neutrophils Absolute Auto 6.3 K/mm3 (1.3-6.7); Neutrophils Percent Auto 66.9 % (45.5-73.1); Platelet Count Result 301 k/mm3 (150-375); Red Cell Distribution Width 16.9 % (11.5-14.5); White Blood Count 9.4 K/mm3 (4.5-10.0)
[2022-01-03 16:37] LABS: Alanine Aminotransferase 16 U/L (6-35); Albumin Level 4.3 g/dL (3.5-5.1); Alkaline Phosphatase 71 U/L (38-126); Anion Gap 13 mmol/L (8-16); Aspartate Amino Transferase 29 U/L (14-36); Bilirubin,Total 1.3 mg/dL (0.2-1.3); Blood Urea Nitrogen 15 mg/dL (7-17); Calcium 9.9 mg/dL (8.4-10.2); Carbon Dioxide 22 mmol/L (22-30); Chloride 103 mmol/L (98-107); Estimated Glomerular Filt Rate 52; Glucose 103 mg/dL (65-110); Potassium 4.8 mmol/L (3.4-5.0); Sodium 138 mmol/L (137-145)
--- NOTE | 2022-01-03 18:42 | PC.NURSE ---
Pt here to clam picker pt. She states she is tired of waiting
== END 2022-01-03 18:42 | disposition left against medical advice (07) ==
LOC: ANHED 19:12
PROVIDERS: Emergency Medicine; PCP Family Medicine
DX: M54.50 Low back pain, unspecified (principal)
CPT/HCPCS: 36415; 80053; 85025; 99199